=== PATIENT | female | born 1965 | race Caucasian/White ===

== ENCOUNTER 2019-10-28 07:17 | Emergency (ER) | payer MEDICARE, MEDICAID ==
[~2019-10-28] VITALS: Ht 157.5 cm; Wt 74.8 kg
--- OUTSIDE RECORDS SUMMARY | ~2019-10-28 | XMS | Encounter Summary ---
Demographics + + + | Address | [address] | | | [place] [address] | + + + | Home Phone | | + + + | Preferred Language | Unknown | + + + | Marital Status | Single | + + + | Sabianist Affiliation | 1013 | + + + | Race | Unknown | + + + | Ethnic Group | Unknown | + + + Author + + + | Author | [facility] | | | and [place] | + + + | Organization | [facility] | | | and [place] | + + + | Address | Unknown | + + + | Phone | Unavailable | + + + Support + + +---------+ + | Name | Relationship | Address | Phone | + + +---------+ + | Juancarlos Wells | ECON | Unknown | | + + +---------+ + | Yaneli Wells | ECON | Unknown | | + + +---------+ + Care Team Providers + +------+ + | Care Clinical Quality Rn Name | Role | Phone | + +------+ + | Freddie Woodward MD | PCP | | + +------+ + Encounter Details +--------+ + + + + | Date | Type | Department | Care Team | Description | +--------+ + + + + | 04/06/ | Hospital | [facility] | Conversion | | | 2014 | Encounter | [facility] | Transaction, | | | | | OUTPATIENT | Provider Unknown | | | | | PROCEDURES [address] | | | | [address] | (Fax) | | | | | [place], [place] | | | | | | [address] | | | | | | [phone] | | | +--------+ + + + + Social History + + + +--------+------+ | Tobacco Use | Types | Packs/Day | Years | Date | | | | | Used | | + + + +--------+------+ | Current Every Day | Cigarettes | | | | | Smoker | | | | | + + + +--------+------+ + +---+---+---+ | Smokeless Tobacco: | | | | | Never Used | | | | + +---+---+---+ + + +---------+ + | Alcohol Use | Drinks/Week | oz/Week | Comments | + + +---------+ + | No | | | | + + +---------+ + + + + | Sex Assigned at | Date Recorded | | | | + + + | Not on file | | + + + + + + + | Job Start Date | Occupation | Industry | + + + + | Not on file | Not on file | Not on file | + + + + + + + + | Travel History | Travel Start | Travel End | + + + + + + | No recent travel history available. | + + documented as of this encounter Medications at Time of Discharge + + + +---------+ + + | Medication | Sig | Dispensed | Refills | Start | End Date | | | | | | Date | | + + + +---------+ + + | albuterol (PROAIR | Inhale 2 puffsonce a | | 0 | 08/14/20 | | | HFA) 90 mcg/puff | day as needed for | | | 12 | | | inhaler | Shortness of breath | | | | | + + + +---------+ + + | esomeprazole | Take 40 mg by mouth | | 0 | 08/14/20 | | | (NEXIUM) 40 mg | Daily. | | | 12 | | | capsule | | | | | | + + + +---------+ + + | fluticasone | Inhale 2 sprays in | | 0 | 08/14/20 | | | (FLONASE) 50 | each nostril once | | | 12 | | | mcg/nasal spray | daily | | | | | + + + +---------+ + + | | Take 50 mg by mouth | | 0 | 08/14/20 | | | hydrochlorothiazide | Daily. | | | 12 | | | (HYDRODIURIL) 50 MG | | | | | | | tablet | | | | | | + + + +---------+ + + | LORazepam (ATIVAN) | Take 1 mg by mouth | | 0 | | | | 1 mg tablet | every 6 hours as | | | | | | | needed. | | | | | + + + +---------+ + + | metroNIDAZOLE | 1 application | | 0 | 08/14/20 | | | (METROGEL) 1 % gel | topically once a day | | | 12 | | + + + +---------+ + + | ondansetron | Take 4 mg by mouth | | 0 | | | | (ZOFRAN) 4 mg tablet | every 8 hours as | | | | | | | needed. | | | | | + + + +---------+ + + | simvastatin | Take 1 tablet by | | 0 | 08/14/20 | | | (ZOCOR) 20 mg tablet | mouth after supper | | | 12 | | | | or before bedtime | | | | | | | every day | | | | | + + + +---------+ + + | zonisamide | Take 300 mg by mouth | | 0 | | | | (ZONEGRAN) 100 mg | nightly. | | | | | | capsule | | | | | | + + + +---------+ + + | cholecalciferol | Take 1 capsule by | | 0 | 08/14/20 | | | (VITAMIN D-3) 1,000 | mouth two or three | | | 12 | 9 | | units capsule | times per week | | | | | + + + +---------+ + + | doxepin (SINEQUAN) | Take 10 mg by mouth | | 0 | | | | 10 mg capsule | nightly. | | | | 9 | + + + +---------+ + + | DULoxetine | Take 60 mg by mouth | | 0 | 08/14/20 | | | (CYMBALTA) 60 MG | Daily. | | | 12 | 9 | | capsule | | | | | | + + + +---------+ + + | ferrous sulfate | Take 1 tablet by | | 0 | 08/14/20 | | | 325 mg tablet | mouth once a day | | | 12 | 9 | | | with 4 oz of vitamin | | | | | | | C rich juice | | | | | + + + +---------+ + + | gabapentin | Take 100 mg by mouth | | 0 | | | | (NEURONTIN) 100 mg | 3 times daily. | | | | 9 | | capsule | | | | | | + + + +---------+ + + | hydrOXYzine | Take 25 mg by mouth | | 0 | 08/14/20 | | | (ATARAX) 25 MG | nightly. | | | 12 | 9 | | tablet | | | | | | + + + +---------+ + + | Levothyroxine | Take 50 mcg by mouth | | 0 | | | | Sodium 50 MCG CAPS | Daily. | | | | 9 | + + + +---------+ + + | lubiprostone | Take 24 mcg by mouth | | 0 | 08/14/20 | | | (AMITIZA) 24 mcg | 2 times daily. | | | 12 | 9 | | capsule | | | | | | + + + +---------+ + + | modafinil | Take 200 mg by mouth | | 0 | 08/14/20 | | | (PROVIGIL) 200 mg | Daily. | | | 12 | 9 | | tablet | | | | | | + + + +---------+ + + | naproxen | Take 500 mg by mouth | | 0 | 08/14/20 | | | (NAPROSYN) 500 mg | 2 times daily. | | | 12 | 9 | | tablet | | | | | | + + + +---------+ + + | natalizumab | Inject 300 mg into | | 0 | | | | (TYSABRI) 20 mg/mL | the vein Every 30 | | | | 9 | | injection | days. | | | | | + + + +---------+ + + | potassium chloride | Take 10 mEq by mouth | | 0 | | | | (KLOR-CON 10) 10 | Daily. | | | | 9 | | mEq CR tablet | | | | | | + + + +---------+ + + | prazosin | Take 1 mg by mouth | | 0 | | | | (MINIPRESS) 1 mg | nightly. | | | | 9 | | capsule | | | | | | + + + +---------+ + + | propranolol | Take 60 mg by mouth | | 0 | 08/14/20 | | | (INDERAL LA) 60 MG | Daily. | | | 12 | 9 | | 24 hr capsule | | | | | | + + + +---------+ + + | traMADol (ULTRAM) | Take 1 to 2 tablets | | 0 | 08/14/20 | | | 50 mg tablet | by mouth every 4 to | | | 12 | 9 | | | 6 hours as needed | | | | | | | for pain | | | | | + + + +---------+ + + | venlafaxine | Take 37.5 mg by | | 0 | | | | (EFFEXOR XR) 37.5 mg | mouth Daily. | | | | 9 | | 24 hr capsule | | | | | | + + + +---------+ + + | zolpidem (AMBIEN) | Take one half or one | | 0 | 08/14/20 | | | 10 mg tablet | tablet at bedtime | | | 12 | 9 | | | for sleep, use | | | | | | | intermittently | | | | | + + + +---------+ + + documented as of this encounter Plan of Treatment +--------+ + + + + | Date | Type | Specialty | Care Team | Description | +--------+ + + + + | 12/01/ | Clinical | Neurology | | | | 2018 | Support | | | | +--------+ + + + + | 12/29/ | Clinical | Neurology | | | | 2019 | Support | | | | +--------+ + + + + | 01/26/ | Clinical | Neurology | | | | 2019 | Support | | | | +--------+ + + + + | 01/26/ | Office | Neurology | Denis Stokes, | | | 2019 | Visit | | [address] | | | | | | [address] | | | | | | [place] [address] | | | | | | [phone] | | | | | | | | +--------+ + + + + documented as of this encounter Visit Diagnoses Not on filedocumented in this encounter"
--- OUTSIDE RECORDS SUMMARY | ~2019-10-28 | XMS | Encounter Summary ---
Demographics + + + | Address | [address] | | | [place] [address] | + + + | Home Phone | | + + + | Preferred Language | Unknown | + + + | Marital Status | Single | + + + | Samaritan Affiliation | 1013 | + + + | Race | Unknown | + + + | Ethnic Group | Unknown | + + + Author + + + | Author | [facility] | | | and [place] | + + + | Organization | [facility] | | | and [...] Team Providers + +------+ + | Care Cell Plasterer Name | Role | Phone | + +------+ + | Freddie Woodward MD | PCP | | + +------+ + Encounter Details +--------+ + + + + | Date | Type | Department | Care Team | Description | +--------+ + + + + | 10/12/ | Orders Only | [facility] | Denis Stokes, | | | 2013 | | NEUROLOGY [address] | PA-C [address] | | | | | [address] | [address]IVE [facility] [address] | | | | | [place], [place] | [place] [address] | | | | | [address] | [phone] | | | | | [phone] | | | +--------+ + + + [...] | | | | | | [address] | | | | | | [place] [address] | | | | | | [phone] | | | | | | | | +--------+ + + + + documented as of this encounter Procedures + +--------+ + + + | Procedure Name | Priori | Date/Time | Associated Diagnosis | Comments | | | ty | | | | + +--------+ + + + | MISCELLANEOUS LAB | Routin | 10/12/2014 | | Results for this | | (NON-ORD) | e | 2:12 PM | | procedure are in the | | | | PST | | results section. | + +--------+ + + + documented in this encounter Results Miscellaneous Lab (10/12/2014 2:12 PM PST) + + + + + + | Component | Value | Ref Range | Performed | Pathologist | | | | | At | Signature | + + + + + + | TEST | [id number]: STRATIFY | | EXTERNAL | | | INFORMATION | JCV ANTIBODYTesting | | LAB | | | | performed at [facility], [address] | | | | | | [facility] [place], [place] | | | | | | [address] | | | | + + + + + + | REFERENCE | [facility] | | EXTERNAL | | | LAB TEST | DIAGNOSTICSComment: | | LAB | | | RESULTS | Testing performed at | | | | | | [facility], [address], | | | | | | [place] [address] | | | | + + + + + + | RESULT | RESULTS TO BE SENT | | EXTERNAL | | | | DIRECTLY TO PHYSICIAN BY | | LAB | | | | REFERRAL | | | | | | LABORATORY.Comment: | | | | | | Testing performed at | | | | | | [facility];[address] | | | | | | [place] [address] | | | | + + + + + + + + | Specimen | + + | | + + + +---------+ + + | Performing | Address | City/State/Zipcode | Phone Number | | Organization | | | | + +---------+ + + | EXTERNAL LAB | | | | + +---------+ + + documented in this encounter Visit Diagnoses Not on filedocumented in this encounter"
--- OUTSIDE RECORDS SUMMARY | ~2019-10-28 | XMS | Encounter Summary ---
Demographics + + + | Address | [address] | | | [place] [address] | + + + | Home Phone | | + + + | Preferred Language | Unknown | + + + | Marital Status | Single | + + + | Buddhist Affiliation | 1013 | + + + | Race | Unknown | + + + | Ethnic Group | Unknown | + + + Author + + + | Author | [facility] | | | and [place] | + + + | Organization | [facility] | | | [...] Team Providers + +------+ + | Care Investment Banker Name | Role | Phone | + +------+ + PCP | Unavailable | + +------+ + Encounter Details +--------+ + + + + | Date | Type | Department | Care Team | Description | +--------+ + + + + | 01/22/ | [facility] | [facility] | | | | 2006 | Encounter | MED CTR LABORATORY | | | | | | [address] | | | | | | [place] | | | | | | [address] | | | | | | [phone] | | | +--------+ + + + + Social History + +-------+ +--------+------+ | Tobacco Use | Types | Packs/Day | Years | Date | | | | | Used | | + +-------+ +--------+------+ | Never Assessed | | | | | + +-------+ +--------+------+ + + + | Sex Assigned at [...] | | | | | | [address] | | | | | | [place] [address] | | | | | | [phone] | | | | | | | | +--------+ + + + + documented as of this encounter Visit Diagnoses Not on filedocumented in this encounter"
--- OUTSIDE RECORDS SUMMARY | ~2019-10-28 | XMS | Encounter Summary ---
Demographics + + + | Address | [address] | | | [place] [address] | + + + | Home Phone | | + + + | Preferred Language | Unknown | + + + | Marital Status | Single | + + + | Lutheran Affiliation | 1013 | + + + | Race | Unknown | + + + | Ethnic Group | Unknown | + + + Author + + + | Author | [facility] | | | and [place] | + + + | Organization | [facility] | | | [...] Team Providers + +------+ + | Care Detail Assembler Name | Role | Phone | + +------+ + | Freddie Woodward MD | PCP | | + +------+ + Encounter Details +--------+ + + + + | Date | Type | Department | Care Team | Description | +--------+ + + + + | 07/20/ | Hospital | [facility] | Conversion | | | 2013 | Encounter | [facility] | Transaction, | | | | | OUTPATIENT | Provider Unknown | | | | | PROCEDURES [address] | | | [address] | (Fax) | | | | | [place], [place] | | | | | | [address] | | | | | | [phone] | | | +--------+ + + + [...] | | | | | [place] [address] | | | | | | [phone] | | | | | | | | +--------+ + + + + documented as of this encounter Visit Diagnoses Not on filedocumented in this encounter"
--- OUTSIDE RECORDS SUMMARY | ~2019-10-28 | XMS | Encounter Summary ---
Demographics + + + | Address | [address] | | | [place] [address] | + + + | Home Phone | | + + + | Preferred Language | Unknown | + + + | Marital Status | Single | + + + | Advent Affiliation | 1013 | + + + [...] Team Providers + +------+ + | Care Unmanned Aircraft Systems Roboticist Name | Role | Phone | + +------+ + | Freddie Woodward MD | PCP | | + +------+ + Reason for Visit + + + | Reason | Comments | + + + | Medication Refill | | + + + Encounter Details +--------+--------+ + + + | Date | Type | Department | Care Team | Description | +--------+--------+ + + + | 07/21/ | Refill | [facility] | Denis Stokes, | Medication Refill | | 2019 | | NEUROLOGY [address] | PA-Jacqueline [address] | | | | | [address] | [address] [facility] [address] | | | | | [place], [place] | [place] [address] | | | | | [address] | [phone] | | | | | [phone] | | | +--------+--------+ + + + Social History + + + +--------+------+ | Tobacco Use | Types | Packs/Day | Years | Date | | | | | Used | | + + + +--------+------+ | Former Smoker | Cigarettes | 0.25 | | | + + + +--------+------+ [...] | | | | | [place] [address] | | | | | | [phone] | | | | | | | | +--------+ + + + + documented as of this encounter Visit Diagnoses Not on filedocumented in this encounter"
--- OUTSIDE RECORDS SUMMARY | ~2019-10-28 | XMS | Encounter Summary ---
Demographics + + + | Address | [address] | | | [place] [address] | + + + | Home Phone | | + + + | Preferred Language | Unknown | + + + | Marital Status | Single | + + + | Evangelical Affiliation | 1013 | + + + | Race | Unknown | + + + | Ethnic Group | Unknown | + + + Author + + + | Author | [facility] | | | and [place] | + + + | Organization | [facility] | | | [...] Team Providers + +------+ + | Care Physician'S Aide Name | Role | Phone | + +------+ + | Lucy Godinez PA-C | PCP | | + +------+ + Encounter Details +--------+ + + + + | Date | Type | Department | Care Team | Description | +--------+ + + + + | 10/27/ | Orders Only | [facility] | Denis Stokes, | MULTIPLE SCLEROSIS; | | 2018 | | NEUROLOGY [address] | PA-C [address] | Encounter for | | | | [address] | [address] | medication | | | | [place], [place] | [place] [address] | monitoring | | | | [address] | [phone] | | | | | [phone] | | | +--------+ + + + [...] Clinical | Neurology | | | | 2020 | Support | | | | +--------+ + + + + | 01/26/ | Clinical | Neurology | | | | 2019 | Support | | | | +--------+ + + + + | 01/26/ | Office | Neurology | Denis Stokes, | | | 2019 | Visit | | [address] [address] | | | | | [address] | | | | | | [place] [address] | | | | | | [phone] | | | | | | | | +--------+ + + + + + +------+--------+ + + | Name | Type | Priori | Associated Diagnoses | Date/Time | | | | ty | | | + +------+--------+ + + | ARMANDO Virus Antbody | Lab | Routin | MULTIPLE SCLEROSIS | 10/27/2019 7:42 PM | | W/Ross, Qual, | | e | Encounter for | PST | | Reflex | | | medication | | | | | | monitoring | | + +------+--------+ + + documented as of this encounter Visit Diagnoses + + | Diagnosis | + + | MULTIPLE SCLEROSIS Multiple sclerosis | + + | Encounter for medication monitoring Encounter for therapeutic drug monitoring | + + documented in this encounter"
--- OUTSIDE RECORDS SUMMARY | ~2019-10-28 | XMS | Clinical Summary ---
Demographics + + + | Address | [address] | | | [place] [address] | + + + | Home Phone | | + + + | Preferred Language | Unknown | + + + | Marital Status | Single | + + + | Worship Affiliation | Unknown | + + + | Race | White | + + + | Ethnic Group | Not or | + + + Author + + + | Author | [facility] | + + + | Organization | [facility] | + + + | Address | Unknown | + + + | Phone | Unavailable | + + + Support + + +---------+ + | Name | Relationship | Address | Phone | + + +---------+ + | Kristina Rodriguez ECON | Unknown | Unavailable | + + +---------+ + Care Team Providers + +------+ + | Care Clinical Secretary Name | Role | Phone | + +------+ + PCP | Unavailable | + +------+ + Source Comments ESTRELLA is fully live on both [facility] Ambulatory and [facility] InPatient.[facility] Allergies + + + + + + | Active Allergy | Reactions | Severity | Noted | Comments | | | | | Date | | + + + + + + | Zolpidem | Unknown | | 11/09/20 | | | | | | 13 | | + + + + + + | Oxycodone-Acetaminop | Unknown | | 11/09/20 | | | hen | | | 13 | | + + + + + + Medications Not on file Active Problems Not on file Social History + +-------+ +--------+------+ | Tobacco Use | Types | Packs/Day | Years | Date | | | | | Used | | + +-------+ +--------+------+ | Current Some Day | | | | | | Smoker | | | | | + +-------+ +--------+------+ + + +---------+ + | Alcohol Use | Drinks/Week | oz/Week | Comments | + + +---------+ + | Not Asked | | | | + + +---------+ [...] recent travel history available. | + + Last Filed Vital Signs + + + + + | Vital Sign | Reading | Time Taken | Comments | + + + + + | Blood Pressure | 137/71 | 11/09/2013 1:42 PM | | | | | PST | | + + + + + | Pulse | 84 | 11/09/2013 1:42 PM | | | | | PST | | + + + + + | Temperature | 36.8 C (98.2 F) | 11/09/2013 1:42 PM | | | | | PST | | + + + + + | Respiratory Rate | 16 | 11/09/2013 1:42 PM | | | | | PST | | + + + + + | Oxygen Saturation | - | - | | + + + + + | Inhaled Oxygen | - | - | | | Concentration | | | | + + + + + | Weight | 86 kg (189 lb 8 oz) | 11/09/2013 1:42 PM | | | | | PST | | + + + + + | Height | 157.5 cm (5' 2") | 11/09/2013 1:42 PM | | | | | PST | | + + + + + | Body Mass Index | 34.66 | 11/09/2013 1:42 PM | | | | | PST | | + + + + + Plan of Treatment + + + + + | Health Maintenance | Due Date | Last Done | Comments | + + + + + | Pneumococcal | | | | | vaccination (1 | 9 | | | | - PPSV23) | | | | + + + + + | Influenza (Flu) | | | | | vaccination (#1) | 9 | | | + + + + + Results Not on filefrom Last 3 Months Insurance + +--------+ +--------+-------+---------+--------+ | Payer | Benefi | Subscriber | Effect | Phone | Address | Type | | | t Plan | ID | hugo | | | | | | / | | Dates | | | | | | Group | | | | | | + +--------+ +--------+-------+---------+--------+ | BUSINESS CONTROLLER MEDICAID | BUSINESS CONTROLLER | xxxxxxxx | 12/02/19 | | | Medica | | | [place] | | 14-Pre | | | id | | | N [place] | | sent | | | | + +--------+ +--------+-------+---------+--------+ + +--------+ +--------+ + + | Guarantor Name | Accoun | Relation to | Date | Phone | Billing Address | | | t Type | Patient | of | | | | | | | | | | + +--------+ +--------+ + + | Yane Lama | Person | Self | [birth year] | [address] | | al/Fam | | 1965 | [phone] | [place] [address] | | | nick | | | 3 (Home) | | + +--------+ +--------+ + +
--- OUTSIDE RECORDS SUMMARY | ~2019-10-28 | XMS | Encounter Summary ---
Demographics + + + | Address | [address] | | | [place] [address] | + + + | Home Phone | | + + + | Preferred Language | Unknown | + + + | Marital Status | Single | + + + | Sabianism Affiliation | 1013 | + + + | Race | Unknown | + + + | Ethnic Group | Unknown | + + + Author + + + | Author | [facility] | | | and [place] | + + + | Organization | [facility] | | | and [...] Team Providers + +------+ + | Care Motor Coach Operator Name | Role | Phone | + +------+ + | Susan Ahn MD | PCP | | + +------+ + Encounter Details +--------+ + + + + | Date | Type | Department | Care Team | Description | +--------+ + + + + | 01/08/ | Hospital | [facility] | Kaz Martin MD | | | 2011 | Encounter | MED CTR MP INTRA OP | [address], [place] | | | | | [address] | [address] [place], [place] | | | | | [place], [place] | [address] | | | | | [address] | | | | | | [phone] | | | +--------+ + + + [...] | | | | | [place] [address] | | | | | | [phone] | | | | | | | | +--------+ + + + + documented as of this encounter Procedures + +--------+ + + + | Procedure Name | Priori | Date/Time | Associated Diagnosis | Comments | | | ty | | | | + +--------+ + + + | TSH | Routin | 01/08/2012 | | Results for this | | | e | 1:17 PM | | procedure are in the | | | | PST | | results section. | + +--------+ + + + documented in this encounter Results TSH (01/08/2012 1:17 PM PST) + + + + + + | Component | Value | Ref Range | Performed | Pathologist | | | | | At | Signature | + + + + + + | TSH | 4.76Comment: Testing | 0.34 - 5.60 | [facility] | | | | performed on the [facility] | uIU/mL | [facility] | | | | [place] [facility] | | MEDICAL | | | | Analyzer. | | CENTER - | | | | | | LABORATORY | | + + + + + + + + | Specimen | + + | | + + + + + + + | Performing | Address | City/State/Zipcode | Phone Number | | Organization | | | | + + + + + | [facility] | [address] | [place] | [phone] | | [facility] | | [address] | | | - LABORATORY | | | | + + + + + | [facility] | [address] | [place] | | | [facility] | | [address] | | | - LABORATORY | | | | + + + + + documented in this encounter Visit Diagnoses Not on filedocumented in this encounter"
--- OUTSIDE RECORDS SUMMARY | ~2019-10-28 | XMS | Encounter Summary ---
Demographics + + + | Address | [address] | | | [place] [address] | + + + | Home Phone | | + + + | Preferred Language | Unknown | + + + | Marital Status | Single | + + + | Moravian Affiliation | 1013 | + + + | Race | Unknown | + + + | Ethnic Group | Unknown | + + + Author + + + | Author | [facility] | | | and [place] | + + + | Organization | [facility] | | | and [...] Team Providers + +------+ + | Care Oriental Rug Repairer Name | Role | Phone | + +------+ + | Freddie Woodward MD | PCP | | + +------+ + Encounter Details +--------+ + + + + | Date | Type | Department | Care Team | Description | +--------+ + + + + | 05/21/ | Orders Only | [facility] | Denis Stokes, | | | 2017 | | [address] | [place] | | | | | [place], [place] | [address] | | | | | [address] | [place] [address] | | | | | [phone] | [phone] | | | | | | | [...] | | | | | [place] [address] | | | | | | [phone] | | | | | | | | +--------+ + + + + documented as of this encounter Procedures + +--------+ + + + | Procedure Name | Priori | Date/Time | Associated Diagnosis | Comments | | | ty | | | | + +--------+ + + + | ARMANDO VIRUS AB W/INDEX, | Routin | 05/21/2018 | | Results for this | | QUAL, REFLEX INHIB | e | 6:56 PM | | procedure are in the | | ASSAY | | PDT | | results section. | + +--------+ + + + documented in this encounter Results ARMANDO Virus Antbody W/Index, Qual, Reflex (05/21/2018 6:56 PM PDT) + + + + + + | Component | Value | Ref Range | Performed | Pathologist | | | | | At | Signature | + + + + + + | Index Value | 0.13 | | EXTERNAL | | | | | | LAB | | + + + + + + | HLA | NegativeComment: Index | | EXTERNAL | | | Antibody | interpretive criteria: | | LAB | | | Result | <0.20 | | | | | | negative 0.20-0.40 | | | | | | indeterminate | | | | | | >0.40 positive | | | | | | | | | | + + + + + + | Interpretat | (See Below)Comment: | | EXTERNAL | | | ion: | Negative: Antibodies to | | LAB | | | | JCV not | | | | | | detected.Indeterminate: | | | | | | Low level reactivity | | | | | | detected, see Inhibition | | | | | | | | | | | | Assay result to follow | | | | | | for the final antibody | | | | | | | | | | | | result.Positive: | | | | | | Antibodies to ARMANDO virus | | | | | | (JCV) detected | | | | | | indicating | | | | | | the patient has been | | | | | | exposed to JCV at an | | | | | | undetermined | | | | | | time.The STRATIFY JCV | | | | | | Antibody Test is an | | | | | | enzyme-linkedimmunosorbe | | | | | | n assay (ALHAJI) designed | | | | | | to detect JCV | | | | | | antibodiesto help | | | | | | identify individuals who | | | | | | have been exposed to | | | | | | thevirus. Samples with | | | | | | low level reactivity in | | | | | | the detectionassay are | | | | | | retested in a | | | | | | confirmation | | | | | | (inhibition) assay | | | | | | toconfirm presence or | | | | | | absence of JCV-specific | | | | | | antibodies. | | | | + + + + + + | JCV | (See Below) | | EXTERNAL | | | Antibody by | | | LAB | | | Inhibition | | | | | + + + + + + | Interpretat | (See Below)Comment: | | EXTERNAL | | | ion: | Positive: Antibodies to | | LAB | | | | ARMANDO virus (JCV) detected | | | | | | indicating | | | | | | the patient has been | | | | | | exposed to | | | | | | JCV at an undetermined | | | | | | timeNegative: Antibodies | | | | | | to JCV not detected | | | | + + + [...]
--- OUTSIDE RECORDS SUMMARY | ~2019-10-28 | XMS | Encounter Summary ---
Demographics + + + | Address | [address] | | | [place] [address] | + + + | Home Phone | | + + + | Preferred Language | Unknown | + + + | Marital Status | Single | + + + | Baptism Affiliation | 1013 | + + + | Race | Unknown | + + + | Ethnic Group | Unknown | + + + Author + + + | Author | [facility] | | | and [place] | + + + | Organization | [facility] | | [...] Team Providers + +------+ + | Care Paper Cutter Operator Name | Role | Phone | + +------+ + | Lucy Godinez PA-C | PCP | | + +------+ + Reason for Visit + + + | Reason | Comments | + + + | Multiple Sclerosis | Tysabri Infusion. | + + + Service/Procedure (Routine) + +--------+ + + + + | Status | Reason | Specialty | Diagnoses / | Referred By | Referred To | | | | | Procedures | Contact | Contact | + +--------+ + + + + | Authorized | | | Diagnoses | Bruno, | Bruno, | | | | | Multiple | MD Id[place] | MD [place] | | | | | sclerosis | [address] | | | | | (HCC) | [place] [address] | | | | | Procedures | [address]IVE [address] | [address] | | | | | [place] | D | D [place], | | | | | [address] | [place], | [place] [address] | | | | | INJECTION, 1 | [place] [address] | Phone: | | | | | [place] | Phone: | [phone] | | | | | CHEMOTHER, | [phone] | Fax: | | | | | IV INFUSION, | Fax: | [phone] | | | | | 1 HR | [phone] | | + +--------+ + + + + Encounter Details +--------+ + + + + | Date | Type | Department | Care Team | Description | +--------+ + + + + | 09/29/ | Clinical | [facility] | | MULTIPLE SCLEROSIS | | 2019 | Support | NEUROLOGY [address] | | (Primary Dx) | | | | [address] | | | | | | [facility] [place] | | | | | | [address] | | | | | | [phone] | | | +--------+ + + + [...] + + documented as of this encounter Last Filed Vital Signs + + + + + | Vital Sign | Reading | Time Taken | Comments | + + + + + | Blood Pressure | 140/87 | 09/29/2019 2:02 PM | | | | | PDT | | + + + + + | Pulse | 87 | 09/29/2019 2:02 PM | | | | | PDT | | + + + + + | Temperature | 37.1 C (98.7 F) | 09/29/2019 2:02 PM | | | | | PDT | | + + + + + | Respiratory Rate | - | - | | + + + + + | Oxygen Saturation | 95% | 09/29/2019 2:02 PM | | | | | PDT | | + + + + + | Inhaled Oxygen | - | - | | | Concentration | | | | + + + + + | Weight | - | - | | + + + + + | Height | - | - | | + + + + + | Body Mass Index | - | - | | + + + + + documented in this encounter Progress Notes Beatris Tejeda RN - 09/29/2019 1:45 PM [id number] Pt presents for IV Tysabri infusion. Pt i dentification verified and patient taken to Infusion [place] [facility]. Informed consent was signed and the Touch Program questionaire completed. There are no contraindications to administration o f Tysabri. 1357 IV access was obtained without difficulty in the left forearm using a 24 GA 0.75 IV ca theter. Pt tolerated well. 1359 Medication is IV Tysabri 300mg/15mL diluted in 100mL of 0.9% Normal Saline immediately prior to infusion. The infusion was started as an IVPB at a rate of 115 mL/hr utilizing an Notis.tv IV pump. Primary solution is 100 mL NS. 1459 Tysabri infusion completed. Line flushed and IV Saline locked. Pt resting comfortably for post-infusion observation period. 1559 Observation period completed. No reaction observed, pt in no apparent distress. IV acc ess DC'd without difficulty. Catheter intact. Site WNL. Pressure dressing applied. Pt instru cted to remove dressing in approximately 2 hours. Pt discharged to home. documented in this en counter Plan of Treatment +--------+ + + + + | Date | Type | Specialty | Care Team | Description | +--------+ + + + + | 12/01/ | Clinical | Neurology | | | 2018 | Support | | | | +--------+ + + + + | 12/29/ | Clinical | Neurology | | | | 2019 | Support | | | | +--------+ + + + + | 01/26/ | Clinical | Neurology | | | | 2019 | Support | | | | +--------+ + + + + 01/26/ | Office | Neurology | Denis Stokes, | | 2019 | Visit | | [address] | | | | | | [address] | | | | | | [place] [address] | | | | | | [phone] | | | | | | | | +--------+ + + + + documented as of this encounter Visit Diagnoses + + | Diagnosis | + + | MULTIPLE SCLEROSIS - Primary Multiple sclerosis | + + documented in this encounter Administered Medications + +---------+ +--------+-------+ + | Medication Order | MAR | Action | Dose | Rate | Site | | | Action | Date | | | | + +---------+ +--------+-------+ + | natalizumab (TYSABRI) 300 mg in | New Bag | 09/29/20 | 300 mg | 115 | Left Arm | | sodium chloride 0.9% 100 mL IVPB | | 19 1:59 | | mL/hr | | | 300 mg, Intravenous, Administer | | PM PDT | | | | | over 1 Hours, ONCE, 09/29/19 | | | | | | | at 1430, For 1 dose, Keep in | | | | | | | refrigerator. Flush with NS | | | | | | | before and after giving. Observe | | | | | | | patients during the infusion and | | | | | | | for one hour after the infusion | | | | | | | is complete., | | | | | | + +---------+ +--------+-------+ + +---+---+ | | | +---+---+ + +---------+ +---------+-------+ + | sodium chloride 0.9% (NS) | New Bag | 09/29/20 | 100 mLs | 100 | Left Arm | | infusion at 100 mL/hr, | | 19 1:59 | | mL/hr | | | Intravenous, FIXED VOLUME (see | | PM PDT | | | | | admin instruction), Starting Tue | | | | | | | 09/29/19 at 1430 | | | | | | + +---------+ +---------+-------+ + +---+---+ | | | +---+---+ documented in this encounter"
--- OUTSIDE RECORDS SUMMARY | ~2019-10-28 | XMS | Encounter Summary ---
Demographics + + + | Address | [address] | | | [place] [address] | + + + | Home Phone | | + + + | Preferred Language | Unknown | + + + | Marital Status | Single | + + + | Judaism Affiliation | 1013 | + + + | Race | Unknown | + + + | Ethnic Group | Unknown | + + + Author + + + | Author | [facility] | | | and [place] | + + + | Organization | [facility] | | | and [place] | + + + | Address | Unknown | + + + | Phone | Unavailable | + + + Support + + +---------+ + | Name | Relationship | Address | Phone | + + +---------+ + | Juancarlos Russell | ECON | Unknown | | + + +---------+ + | Yaneli Wells | ECON | Unknown | | + + +---------+ + Care Team Providers + +------+ + | Care Warping Machine Operator Name | Role | Phone | + +------+ + PCP | Unavailable | + +------+ + Encounter Details +--------+ + + + + | Date | Type | Department | Care Team | Description | +--------+ + + + + | 10/15/ | Hospital | [facility] | [place], | | | 2006 | Encounter | MED CTR EMERGENCY | Lucio Plaza MD [address] | | | | | [address] | [facility] | | | | | [place], [place] | [place] [address] | | | | | [address] | [phone] | | | | | [phone] | | | +--------+ + + + [...] | | | | | [place] [address] | | | | | | [phone] | | | | | | | | +--------+ + + + + documented as of this encounter Visit Diagnoses Not on filedocumented in this encounter"
--- OUTSIDE RECORDS SUMMARY | ~2019-10-28 | XMS | Encounter Summary ---
Demographics + + + | Address | [address] | | | [place] [address] | + + + | Home Phone | | + + + | Preferred Language | Unknown | + + + | Marital Status | Single | + + + | Anabaptist Affiliation | 1013 | + + + | Race | Unknown | + + + | Ethnic Group | Unknown | + + + Author + + + | Author | [facility] | | | and [place] | + + + | Organization | [facility] | | | [...] Team Providers + +------+ + | Care Instructor Ballroom Dancing Name | Role | Phone | + +------+ + PCP | Unavailable | + +------+ + Encounter Details +--------+ + + + + | Date | Type | Department | Care Team | Description | +--------+ + + + + | 12/05/ | [facility] | [facility] | | | | 2000 | Encounter | MED CTR LABORATORY | | | | | | [address] | | | | | | [place] | | | | | | [address] | | | | | | [phone] | | | +--------+ + + + [...] | | | | | [place] [address] | | | | | | [phone] | | | | | | | | +--------+ + + + + documented as of this encounter Visit Diagnoses Not on filedocumented in this encounter"
--- OUTSIDE RECORDS SUMMARY | ~2019-10-28 | XMS | Encounter Summary ---
Demographics + + + | Address | [address] | | | [place] [address] | + + + | Home Phone | | + + + | Preferred Language | Unknown | + + + | Marital Status | Single | + + + | Scientologist Affiliation | 1013 | + + + | Race | Unknown | + + + | Ethnic Group | Unknown | + + + Author + + + | Author | [facility] | | | and [place] | + + + | Organization | [facility] | | | and [...] Team Providers + +------+ + | Care House Coordinator Name | Role | Phone | + +------+ + | Freddie Woodward MD | PCP | | + +------+ + Encounter Details +--------+ + + + + | Date | Type | Department | Care Team | Description | +--------+ + + + + | 07/21/ | Hospital | [facility] | Conversion | | | 2012 | Encounter | [facility] | Transaction, | | | | | OUTPATIENT | Provider Unknown | | | | | PROCEDURES [address] | | | [address] | (Fax) | | | | | [place], [place] | | | | | | [address] | | | | | | [phone] | | | +--------+ + + + [...] | | | | | [place] [address] | | | | | | [phone] | | | | | | | | +--------+ + + + + documented as of this encounter Visit Diagnoses Not on filedocumented in this encounter"
--- OUTSIDE RECORDS SUMMARY | ~2019-10-28 | XMS | Encounter Summary ---
Demographics + + + | Address | [address] | | | [place] [address] | + + + | Home Phone | | + + + | Preferred Language | Unknown | + + + | Marital Status | Single | + + + | Orthodox Affiliation | 1013 | + + + | Race | Unknown | + + + | Ethnic Group | Unknown | + + + Author + + + | Author | [facility] | | | and [place] | + + + | Organization | [facility] | | | [...] Team Providers + +------+ + | Care Environmental Services Specialist Name | Role | Phone | + +------+ + PCP | Unavailable | + +------+ + Encounter Details +--------+ + + + + | Date | Type | Department | Care Team | Description | +--------+ + + + + | / | [facility] | [facility] | | | | 1999 | Encounter | MED CTR LABORATORY | | | | | | [address] | | | | | | [place] | | | | | | [address] | | | | | | [phone] | | | +--------+ + + + [...] [address] | | | | | | [address] | | | | | | [place] [address] | | | | | | [phone] | | | | | | | | +--------+ + + + + documented as of this encounter Visit Diagnoses Not on filedocumented in this encounter"
--- OUTSIDE RECORDS SUMMARY | ~2019-10-28 | XMS | Encounter Summary ---
Demographics + + + | Address | [address] | | | [place] [address] | + + + | Home Phone | | + + + | Preferred Language | Unknown | + + + | Marital Status | Single | + + + | Muslim Affiliation | 1013 | + + + | Race | Unknown | + + + | Ethnic Group | Unknown | + + + Author + + + | Author | [facility] | | | and [place] | + + + | Organization | [facility] | | | [...] Team Providers + +------+ + | Care Process Control Programmer Name | Role | Phone | + +------+ + | Freddie Woodward MD | PCP | | + +------+ + Reason for Visit + + + | Reason | Comments | + + + | Appointment | MRI | + + + Encounter Details +--------+ + + + + | Date | Type | Department | Care Team | Description | +--------+ + + + + | 07/13/ | Telephone | [facility] | [facility], | Appointment (MRI) | | 2012 | | GASTROENTEROLOGY | KEYANA [address] | | | | | [address] [place] | [place], [place] [address] | | | | | [address] [place], [place] | [place], [place] | | | | | [address] | [address] | | | | | [phone] | | | +--------+ + + + [...] | | | | | [place] [address] | | | | | | [phone] | | | | | | | | +--------+ + + + + documented as of this encounter Visit Diagnoses Not on filedocumented in this encounter"
--- OUTSIDE RECORDS SUMMARY | ~2019-10-28 | XMS | Encounter Summary ---
Demographics + + + | Address | [address] | | | [place] [address] | + + + | Home Phone | | + + + | Preferred Language | Unknown | + + + | Marital Status | Single | + + + | Latter Day Affiliation | 1013 | + + + | Race | Unknown | + + + | Ethnic Group | Unknown | + + + Author + + + | Author | [facility] | | | and [place] | + + + | Organization | [facility] | | | [...] Team Providers + +------+ + | Care Critical Care Unit Nurse Name | Role | Phone | + [...] [address] | | | | | [place] | D | [place], | | | | | [address] | [place], | [place] [address] | | | | | INJECTION, 1 | [place] [address] | Phone: | | | | | [place] | Phone: | [phone] | | | | | CHEMOTHER, | [phone] | Fax: | | | | | IV INFUSION, | Fax: | [phone] | | | | | 1 HR | [phone] | | + +--------+ + + + + Encounter Details +--------+ + + + + | Date | Type | Department | Care Team | Description | +--------+ + + + + | 08/04/ | Procedure | [facility] | | MULTIPLE SCLEROSIS | | 2019 | visit | NEUROLOGY [address] | | (Primary Dx) | | | | [address] | | | | | | [place] | | | | | | [address] | | | | | | [phone] | | | +--------+ + + + [...] + + + | Blood Pressure | 128/77 | 08/04/2019 2:09 PM | | | | | PDT | | + + + + + | Pulse | 97 | 08/04/2019 2:09 PM | | | | | PDT | | + + + + + | Temperature | 36.7 C (98 F) | 08/04/2019 2:09 PM | | | | | PDT | | + + + + + | Respiratory Rate | - | - | | + + + + + | Oxygen Saturation | 95% | 08/04/2019 2:09 PM | | | | | PDT [...] + + + documented in this encounter Patient Instructions Patient Instructions Lizz Elmore, Customer Sales Advisor - 08/04/2019 1:45 PM PDTImagin g Information Your provider has ordered MRI of your Brain *Please let us know if you are claustrophobic BEFORE your imaging appointment so the approp riate medication can be ordered* Depending on your insurance it may take several days for them to approve this order. Please allow 3 business days before contacting [facility] department, they will be able to let you know if your testing has been approved or denied. To schedule your appointment, or if you have questions about your insurance authorization, please call: . documented in this encounter Progress Notes Beatris Tejeda, ELDER - 08/04/2019 1:45 PM [id number] Pt presents for IV Tysabri infusion. Pt i dentification verified and patient taken to Infusion [place] 3. Informed consent was signed and the Touch Program questionaire completed. There are no contraindications to administration o f Tysabri. 1420 IV access was obtained without difficulty in the right hand using a 24 GA 0.75 IV cath eter. Pt tolerated well. 1423 Medication is IV Tysabri 300mg/15mL diluted in 100mL of 0.9% Normal Saline immediately prior to infusion. The infusion was started as an IVPB at a rate of 115 mL/hr utilizing an BetaVersity IV pump. Primary solution is 100 mL NS. 1523 Tysabri infusion completed. Line flushed and IV Saline locked. Pt resting comfortably for post-infusion observation period. 1623 Observation period completed. No reaction observed, pt [...] D | | | | | | [place] [address] | | | | | | [phone] | | | | | | | | +--------+ + + + + documented as of this encounter Visit Diagnoses + + | Diagnosis | + + | MULTIPLE SCLEROSIS - Primary Multiple sclerosis | + + documented in this encounter Administered Medications + +---------+ +--------+-------+--------+ | Medication Order | MAR | Action | Dose | Rate | Site | | | Action | Date | | | | + +---------+ +--------+-------+--------+ | natalizumab (TYSABRI) 300 mg in | New Bag | 08/04/20 | 300 mg | 115 | Right | | sodium chloride 0.9% 100 mL IVPB | | 19 2:23 | | mL/hr | Arm | | 300 mg, Intravenous, Administer | | PM PDT | | | | | over 1 Hours, ONCE, 08/04/19 | | | | | | | at 1715, For 1 dose, Keep in | | [...] | | | | | + +---------+ +--------+-------+--------+ +---+---+ | | | +---+---+ + +---------+ +---------+-------+--------+ | sodium chloride 0.9% (NS) | New Bag | 08/04/20 | 100 mLs | 100 | Right | | infusion at 100 mL/hr, | | 19 2:23 | | mL/hr | Arm | | Intravenous, FIXED VOLUME (see | | PM PDT | | | | | admin instruction), Starting Tue | | | | | | | 08/04/19 at 1715 | | | | | | + +---------+ +---------+-------+--------+ +---+---+ | | | +---+---+ documented in this encounter"
--- OUTSIDE RECORDS SUMMARY | ~2019-10-28 | XMS | Encounter Summary ---
Demographics + + + | Address | [address] | | | [place] [address] | + + + | Home Phone | | + + + | Preferred Language | Unknown | + + + | Marital Status | Single | + + + | Yarsani Affiliation | 1013 | + + + | Race | Unknown | + + + | Ethnic Group | Unknown | + + + Author + + + | Author | [facility] | | | and [place] | + + + | Organization | [facility] | | | [...] Team Providers + +------+ + | Care Hoop Machine Operator Name | Role | Phone | + +------+ + | Susan Ahn MD | PCP | | + +------+ + Encounter Details +--------+ + + + + | Date | Type | Department | Care Team | Description | +--------+ + + + + | 08/14/ | Abstract | [place] [facility] | DATA MIGRATION EPIFANIO | | | 2011 | | Conversion Location | SR | | | | | [phone] | | | +--------+ + + + [...] + + + | Blood Pressure | 120/80 | 12/31/2011 12:00 AM | | | | | PST | | + + + + + | Pulse | - | - | | + + + + + | Temperature | - | - | | + + + + + | Respiratory Rate | - | - | | + + + + + | Oxygen Saturation | - | - | | + + + + + | Inhaled Oxygen | - | - | | | Concentration | | | | + + + + + | Weight | 85.3 kg (188 lb) | 12/31/2011 12:00 AM | | | | | PST | | + + + + + | Height | 157.5 cm (5' 2") | 12/28/2011 12:00 AM | | | | | PST | | + + + + + | Body Mass Index | 34.39 | 12/28/2011 12:00 AM | | | | | PST | | + + + + + documented in this encounter Plan of Treatment +--------+ + [...] [address] | | | | | | [place] [address] | | | | | | [phone] | | | | | | | | +--------+ + + + + documented as of this encounter Procedures + +--------+ + + + | Procedure Name | Priori | Date/Time | Associated Diagnosis | Comments | | | ty | | | | + +--------+ + + + | ENDOSCOPY, COLON, | Routin | 01/08/2012 | | Results for this | | DIAGNOSTIC | e | 12:00 AM | | procedure are in the | | | | PST | | results section. | + +--------+ + + + documented in this encounter Results ENDOSCOPY, COLON, DIAGNOSTIC (01/08/2012 12:00 AM PST) + + | Specimen | + + | | + + + + + | Narrative | Performed At | + + + | | | + + + documented in this encounter Visit Diagnoses Not on filedocumented in this encounter
--- OUTSIDE RECORDS SUMMARY | ~2019-10-28 | XMS | Encounter Summary ---
Demographics + + + | Address | [address] | | | [place] [address] | + + + | Home Phone | | + + + | Preferred Language | Unknown | + + + | Marital Status | Single | + + + | Lutheran Affiliation | 1013 | + + + | Race | Unknown | + + + | Ethnic Group | Unknown | + + + Author + + + | Author | [facility] | | | and [place] | + + + | Organization | [facility] | | | and [...] Team Providers + +------+ + | Care Ice Puller Name | Role | Phone | + +------+ + PCP | Unavailable | + +------+ + Encounter Details +--------+ + + + + | Date | Type | Department | Care Team | Description | +--------+ + + + + | 03/21/ | Hospital | [facility] | Kaz Martin MD | | | 2006 | Encounter | MED CTR GENERIC OP | [address], [place] | | | | | CONV DEPT [address] [place], [place] | | | | | [address] [place], | [address] | | | | | [place] [address] | | | | | | [phone] | | | +--------+ + + + [...] | | | | | [place] [address] | | | | | | [phone] | | | | | | | | +--------+ + + + + documented as of this encounter Visit Diagnoses Not on filedocumented in this encounter"
--- OUTSIDE RECORDS SUMMARY | ~2019-10-28 | XMS | Encounter Summary ---
Demographics + + + | Address | [address] | | | [place] [address] | + + + | Home Phone | | + + + | Preferred Language | Unknown | + + + | Marital Status | Single | + + + | Hindu Affiliation | 1013 | + + + | Race | Unknown | + + + | Ethnic Group | Unknown | + + + Author + + + | Author | [facility] | | | and [place] | + + + | Organization | [facility] | | [...] Team Providers + +------+ + | Care Hydrogen Power Plant Engineer Name | Role | Phone | + +------+ + PCP | Unavailable | + +------+ + Encounter Details +--------+ + + + + | Date | Type | Department | Care Team | Description | +--------+ + + + + | 09/24/ | [facility] | [facility] | | | | 2005 | Encounter | MED CTR XRAY [address] | | | | | | [address] | | | | | | [place] [address] | | | | | | [phone] | | | +--------+ + + + [...] | | | | | [place] [address] | | | | | | [phone] | | | | | | | | +--------+ + + + + documented as of this encounter Visit Diagnoses Not on filedocumented in this encounter"
--- OUTSIDE RECORDS SUMMARY | ~2019-10-28 | XMS | Clinical Summary ---
Demographics + + + | Address | [address] | | | [place] [address] | + + + | Home Phone | | + + + | Preferred Language | Unknown | + + + | Marital Status | Single | + + + | Jehovah'S Witness Affiliation | Unknown | + + + | Race | White | + + + | Ethnic Group | Not or | + + + Author + + + | Author | [facility] | + + + | Organization | [facility] | + + + | Address | Unknown | + + + | Phone | Unavailable | + + + Support + + +---------+ + | Name | Relationship | Address | Phone | + + +---------+ + | Kristina Rodriguez ECON | Unknown | Unavailable | + + +---------+ + Care Team Providers + +------+ + | Care Cone Treater Name | Role | Phone | + +------+ + PCP | Unavailable | + +------+ + Source Comments ESTRELLA is fully live on both [facility] Ambulatory and [facility] InPatient.[facility] Allergies + + + + + + [...] | | | + +--------+ +--------+-------+---------+--------+ | ROOMS DIRECTOR MEDICAID | ROOMS DIRECTOR | xxxxxxxx | 12/02/19 | | | [...] | 1965 | [id number] | [place] [address] | | | nick | | | 3 (Home) | | + +--------+ +--------+ + +
--- OUTSIDE RECORDS SUMMARY | ~2019-10-28 | XMS | Encounter Summary ---
Demographics + + + | Address | [address] | | | [place] [address] | + + + | Home Phone | | + + + | Preferred Language | Unknown | + + + | Marital Status | Single | + + + | Faith Affiliation | 1013 | + + + | Race | Unknown | + + + | Ethnic Group | Unknown | + + + Author + + + | Author | [facility] | | | and [place] | + + + | Organization | [facility] | | [...] Team Providers + +------+ + | Care Director Global Intelligence Name | Role | Phone | + +------+ + | Freddie Woodward MD | PCP | | + +------+ + Encounter Details +--------+ + + + + | Date | Type | Department | Care Team | Description | +--------+ + + + + | 12/07/ | Hospital | [facility] | Conversion | | | 2015 | Encounter | [facility] | Transaction, | | | | | OUTPATIENT | Provider Unknown | | | | | PROCEDURES [address] | | | | [address] | (Fax) | | | | | [place], [place] | | | | | | [address] | | | | | | [phone] | | | +--------+ + + + [...] + + documented as of this encounter Progress Notes Denis Stokes PA - 12/07/2014 1:32 PM PSTFormatting of this note might be different fro m the original. Progress Notes by Denis Stokes PA-C at 12/07/141331 Author: Denis Stokes PA-C Service: Neurology Author Type: Physician Gluer And Wedger - Certif ied Filed: 12/07/14 7527 Date of Service: 12/07/141331 Status: Signed Parts Counterman: Denis Stokes PA-C (Physician Gluer And Wedger - Certified) The patient returns today for Tysabri treatment for relapsing type of multiple sclerosis fa iled other disease modifying agents for multiple sclerosis. No side effects or new neurologi velia symptoms from last treatment. The patient has completed the pre-infusion checklist and this was reviewed and discussed with me prior to administration of Tysabri. The patient cons ented for the treatment of Tysabri. The patient will call for any changes or questions. JCV antibody status: Negative, last 10/12/14 (0.18). documented in this e ncounter Plan of Treatment +--------+ + + + [...] | | | | | [place] [address] | | | | | | [phone] | | | | | | | | +--------+ + + + + documented as of this encounter Visit Diagnoses Not on filedocumented in this encounter"
--- OUTSIDE RECORDS SUMMARY | ~2019-10-28 | XMS | Encounter Summary ---
Demographics + + + | Address | [address] | | | [place] [address] | + + + | Home Phone | | + + + | Preferred Language | Unknown | + + + | Marital Status | Single | + + + | Buddhist Affiliation | 1013 | + + + | Race | Unknown | + + + | Ethnic Group | Unknown | + + + Author + + + | Author | [facility] | | | and [place] | + + + | Organization | [facility] | | [...] Team Providers + +------+ + | Care Pega Developer Name | Role | Phone | + +------+ + PCP | Unavailable | + +------+ + Encounter Details +--------+ + + + + | Date | Type | Department | Care Team | Description | +--------+ + + + + | 08/01/ | [facility] | [facility] | | | | 1998 | Encounter | MED CTR LABORATORY | | | | | | [address] | | | | | | [place] | | | | | | [address] | | | | | | [phone] | | | +--------+ + + + [...] | | | | | [place] [address] | | | | | | [phone] | | | | | | | | +--------+ + + + + documented as of this encounter Visit Diagnoses Not on filedocumented in this encounter"
--- OUTSIDE RECORDS SUMMARY | ~2019-10-28 | XMS | Encounter Summary ---
Demographics + + + | Address | [address] | | | [place] [address] | + + + | Home Phone | | + + + | Preferred Language | Unknown | + + + | Marital Status | Single | + + + | Buddhism Affiliation | 1013 | + + + | Race | Unknown | + + + | Ethnic Group | Unknown | + + + Author + + + | Author | [facility] | | | and [place] | + + + | Organization | [facility] | | | and [...] Team Providers + +------+ + | Care Government Affairs Director Name | Role | Phone | + +------+ + PCP | Unavailable | + +------+ + Encounter Details +--------+ + + + + | Date | Type | Department | Care Team | Description | +--------+ + + + + | 05/10/ | [facility] | [facility] | | | | 2007 | Encounter | MED CTR LABORATORY | | | | | | [address] | | | | | | [place] | | | | | | [address] | | | | | | [phone] | | | +--------+ + + + [...] | | | | | [place] [address] | | | | | | [phone] | | | | | | | | +--------+ + + + + documented as of this encounter Visit Diagnoses Not on filedocumented in this encounter"
--- OUTSIDE RECORDS SUMMARY | ~2019-10-28 | XMS | Encounter Summary ---
Demographics + + + | Address | [address] | | | [place] [address] | + + + | Home Phone | | + + + | Preferred Language | Unknown | + + + | Marital Status | Single | + + + | Voodoo Affiliation | 1013 | + + + | Race | Unknown | + + + | Ethnic Group | Unknown | + + + Author + + + | Author | [facility] | | | and [place] | + + + | Organization | [facility] | | | and [...] Team Providers + +------+ + | Care Draw Operator Name | Role | Phone | + +------+ + PCP | Unavailable | + +------+ + Encounter Details +--------+ + + + + | Date | Type | Department | Care Team | Description | +--------+ + + + + | / | [facility] | [facility] | | | | 1999 | Encounter | MED CTR LABORATORY | | | | | | [address] | | | | | | [place] | | | | | | [address] | | | | | | [phone] | | | +--------+ + + + [...] | | | | | | [address] | | | | | | [place] [address] | | | | | | [phone] | | | | | | | | +--------+ + + + + documented as of this encounter Visit Diagnoses Not on filedocumented in this encounter"
--- OUTSIDE RECORDS SUMMARY | ~2019-10-28 | XMS | Encounter Summary ---
Demographics + + + | Address | [address] | | | [place] [address] | + + + | Home Phone | | + + + | Preferred Language | Unknown | + + + | Marital Status | Single | + + + | Anabaptism Affiliation | 1013 | + + + | Race | Unknown | + + + | Ethnic Group | Unknown | + + + Author + + + | Author | [facility] | | | and [place] | + + + | Organization | [facility] | | | and [...] Team Providers + +------+ + | Care Industrial Cafeteria Manager Name | Role | Phone | + +------+ + | Freddie Woodward MD | PCP | | + +------+ + Reason for Referral Diagnostic/Screening (Routine) +--------+--------+ + + + + | Status | Reason | Specialty | Diagnoses / | Referred By | Referred To | | | | | Procedures | Contact | Contact | +--------+--------+ + + + + | Closed | | Radiology | Diagnoses | | [facility] | | | | | ALT (SGPT) | [facility] | [address] | | | | | level raised | [place], | [place], | | | | | Abdominal | TIME CLOCK REPAIRER [address] | [place] | | | | | pain | [place], [place] | [address] | | | | | Pancreatic | [address] [place] | Phone: | | | | | ductal | [place], [place] | [phone] | | | | | abnormality | [address] | Fax: | | | | | Procedures | Phone: | [phone] | | | | | MRI Abdomen | [phone] | | | | | | wo Contrast | Fax: | | | | | | | [phone] | | +--------+--------+ + + + + Encounter Details +--------+ + + + + | Date | Type | Department | Care Team | Description | +--------+ + + + + | 07/17/ | Hospital | [facility] | [facility], | ALT (SGPT) level | | 2013 | Encounter | MED CTR XRAY [address] | [place], TIME CLOCK REPAIRER [address] | raised; Abdominal | | | | [address] [place] | [place], [place] [address] | pain; Pancreatic | | | | [place] [address] | [place], [place] | ductal abnormality | | | | [phone] | [address] | | | | | | | [...] one | | 0 | 08/14/20 | 09/03/201 | | 10 mg tablet | tablet [...] | 2019 | Visit | | [address] | | | | | [address] | | | | | | [place] [address] | | | | | | [phone] | | | | | | | | +--------+ + + + + documented as of this encounter Procedures + +--------+ + + + | Procedure Name | Priori | Date/Time | Associated Diagnosis | Comments | | | ty | | | | + +--------+ + + + | MRI ABDOMEN WO | Routin | 07/17/2013 | ALT (SGPT) level | Results for this | | CONTRAST | e | 9:30 AM | raised Abdominal | procedure are in the | | | | PDT | pain Pancreatic | results section. | | | | | ductal abnormality | | + +--------+ + + + documented in this encounter Results MRI Abdomen wo Contrast (07/17/2013 9:30 AM PDT) + + | Specimen | + + | | + + + + + | Narrative | Performed At | + + + | [facility] | [place] | | Department [address] | [facility] | | [ rep [address]] [ rep [facility] | | st zip] Signed | - IMAGING | | | | | Patient Name: ROX LEE Physician: | | | BRID. : 1965 Age: 48 Sex: F Unit #: [id number] | | | Exam Date: 07/17/13 Location: [facility] | | | Report #: [id number] Page: | | | %(RAD)RES..mtdd.print.filter("pg") of %(RAD) | | | RES..mtdd.print.filter("tpg") | | | | | | Accession Number: [id number] | | | CT OF ABDOMEN WITHOUT CONTRAST, 07/17/2013 CLINICAL | | | HISTORY: ELEVATED AALT. PLEASE PERFORM MRCP. THE PATIENT HAD | | | GALLBLADDER REMOVED THIRTEEN YEARS AGO. STENT SEVEN YEARS AGO FOR | | | TWO WEEKS. NOW WITH ABDOMINAL PAIN. COMPARISON: | | | Ultrasound 01/31/[address] of abdomen 02/25/2007. | | | TECHNIQUE: Coronal and T2 HASTE sequences. 3D respiratory triggered | | | T2-weighted MRCP. Thickened SLAB T2-weighted MRCP images. MIP | | | reconstructions. FINDINGS: The common bile duct is | | | prominent. It does taper normally to the level of the ampulla. It | | | measures approximately 7 mm. There is a low insertion of the remnant | | | cystic duct. The common hepatic duct is mildly prominent measuring 6 | | | mm. The right intrahepatic duct is mildly prominent. There is a | | | relatively rapid transition to the branching right intrahepatic ducts | | | with an area of narrowing. There is also an area of narrowing in the | | | distal portion of the left intrahepatic ducts with more proximal | | | ducts out into the left lobe having a more normal caliber. There may | | | be a second area of focal narrowing more distally in the left | | | intrahepatic ducts. No distinct beading of the intrahepatic biliary | | | ducts. The pancreatic duct is well visualized. It is patent and | | | without narrowing or filling defects from the ampulla through its | | | proximal extent. It measures a greatest dimension of 2.5 mm. | | | The gallbladder is surgically absent. No obstructive uropathy. | | | There are two subcentimeter T2 hyperintensities in the right kidney. | | | These are likely small cysts. The liver and spleen are grossly | | | unremarkable but not completely evaluated. No evidence for | | | gastrointestinal tract obstruction. No aneurysmal dilatation of the | | | infrarenal abdominal aorta. IMPRESSION: 1. NO | | | DILATATION OR EVIDENCE OF OBSTRUCTION OF THE COMMON BILE DUCT OR | | | COMMON HEPATIC DUCT. 2. AREAS OF NARROWING IN THE | | | INTRAHEPATIC DUCTS. THE MOST CONSPICUOUS AND LONGEST SEGMENT IS IN THE | | | LEFT INTRAHEPATIC DUCT. THIS IS OVER ABOUT 15 MM. THERE ARE TWO | | | ADDITIONAL AREAS SUSPECTED, ONE MORE PROXIMALLY IN THE LEFT | | | INTRAHEPATIC DUCTS AND ONE DISTALLY IN THE RIGHT INTRAHEPATIC DUCTS. | | | THESE ARE NONSPECIFIC FINDINGS. THEY ARE FELT TO LIKELY REPRESENT | | | SMALL STRICTURES. THESE CAN BE SEEN IN A SETTING OF PRIMARY | | | SCLEROSING CHOLANGITIS. THEY CAN ALSO BE SMALL STRICTURES DUE TO OTHER | | | ETIOLOGIES. FURTHER EVALUATION AND CLINICAL CORRELATION MAY BE OF | | | BENEFIT. Dictated Date/Time: 07/17/2013 09:30 | | | Transcribed Date/Time: 07/17/2013 10:02 Special Technical Operations Officer: | | | <<Signature on File>> | | | Kaz | | | Elaine Forman MD07/18/13 0958 <Electronically signed by Kaz Henry | | | Dasia MILLS> Kaz Foramn MD 07/17/13 0930 | | | Special Technical Operations Officer: iwoca Nerskvdgymqui96/16/13 1002 | | | [place] | | + + + + + + + + | Performing | Address | City/State/Zipcode | Phone Number | | Organization | | | | + + + + + | [facility] | [address] 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
--- OUTSIDE RECORDS SUMMARY | ~2019-10-28 | XMS | Encounter Summary ---
Demographics + + + | Address | [address] | | | [place] [address] | + + + | Home Phone | | + + + | Preferred Language | Unknown | + + + | Marital Status | Single | + + + | Zoroastrian Affiliation | 1013 | + + + | Race | Unknown | + + + | Ethnic Group | Unknown | + + + Author + + + | Author | [facility] | | | and [place] | + + + | Organization | [facility] | | | [...] Team Providers + +------+ + | Care Drilling Machine Operator Name | Role | Phone [...] | | | | ALT (SGPT) | [facility], | [address] | | | | | level raised | [place], | [place], | | | | | Abdominal | [employer] [address] | [place] | | | | | pain | [place], [place] | [address] | | | | | Pancreatic | [address] [place] | Phone: | | | | | ductal | [place], [place] | [phone] | | | | | abnormality | [address] | Fax: | | | | | Procedures | Phone: | [phone] | | | | | MRI Abdomen | [phone] | | | | | | wo Contrast | Fax: | | | | | | | [phone] | | +--------+--------+ + + + + Reason for Visit +--------+ + | Reason | Comments | +--------+ + | Other | | +--------+ + Encounter Details +--------+ + + + + | Date | Type | Department | Care Team | Description | +--------+ + + + + | 07/08/ | Telephone | [facility] [place] | [place], | Other | | 2012 | | GASTROENTEROLOGY | [address]ANA Rayo [address] | | | | | [address] [place] | [place], [place] [address] | | | | | [address] [place], [place] | [place], [place] | | | | | [address] | [address] | | | | | [phone] | | | +--------+ + + + [...] D | | | | | | [place] [address] | | | | | | [phone] | | | | | | | | +--------+ + + + + documented as of this encounter Results MRI Abdomen wo Contrast (07/17/2013 9:30 AM PDT) + + | Specimen | + + | | + + + + + | Narrative | Performed At | + + + | [facility] | [place] | | Department [address] [facility] [place] | [facility] | | [ rep ct [address]] [ rep ct [facility] | | st zip] Signed | - IMAGING | | | | | Patient Name: ROX LEE Physician: | | | BRID.01 : 1965 Age: 48 Sex: F Unit #: [id number] | | | Exam Date: 07/17/13 Location: [facility] | | | Report #: [id number] Page: | | | %(RAD)RES..mtdd.print.filter("pg") of %(RAD) | | | RES..mtdd.print.filter("tpg") | | | | | | Accession Number: [id number] | | | CT OF ABDOMEN WITHOUT [...] | | | Transcribed Date/Time: 07/17/2013 10:02 Shoe Repair Cobbler: | | | <<Signature on File>> | | | Kaz Rodriguez | | Elaine Forman MD07/18/13 0958 <Electronically signed by Kaz Forman MD> Kaz Forman MD 07/17/1330 | | | Shoe Repair Cobbler: Scality [email or web address]/16/13 1002 | | | [place] | | + + + + + + + + | Performing | Address | City/State/Zipcode | Phone Number | | Organization | | | | + + + + + | [facility] | [address] 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
--- OUTSIDE RECORDS SUMMARY | ~2019-10-28 | XMS | Encounter Summary ---
Demographics + + + | Address | [address] | | | [place] [address] | + + + | Home Phone | | + + + | Preferred Language | Unknown | + + + | Marital Status | Single | + + + | Rastafari Affiliation | 1013 | + + + | Race | Unknown | + + + | Ethnic Group | Unknown | + + + Author + + + | Author | [facility] | | | and [place] | + + + | Organization | [facility] | | [...] Team Providers + +------+ + | Care Chemical Mixer Name | Role | Phone | + +------+ + | Freddie Woodward MD | PCP | | + +------+ + Reason for Visit +---------+ + | Reason | Comments | +---------+ + | Results | | +---------+ + Encounter Details +--------+ + + + + | Date | Type | Department | Care Team | Description | +--------+ + + + + | 07/29/ | Telephone | [facility] [place] | [facility], | Results | | 2012 | | GASTROENTEROLOGY | KEYANA [address] | | | | | [address] [place] | [place], [place] [address] | | | | | [address] [place], [place] | [place], [place] | | | | | [address] | [address] | | | | | [phone] | | | +--------+ + + + [...] D | | | | | | [place] [address] | | | | | | [phone] | | | | | | | | +--------+ + + + + documented as of this encounter Visit Diagnoses Not on filedocumented in this encounter"
--- OUTSIDE RECORDS SUMMARY | ~2019-10-28 | XMS | Encounter Summary ---
Demographics + + + | Address | [address] | | | [place] [address] | + + + | Home Phone | | + + + | Preferred Language | Unknown | + + + | Marital Status | Single | + + + | Gnosticist Affiliation | 1013 | + + + [...] Team Providers + +------+ + | Care Curtain Fitter Name | Role | Phone | + +------+ + | Freddie Woodward MD | PCP | | + +------+ + Reason for Visit +--------+ + | Reason | Comments | +--------+ + | Other | side pain with bruising | +--------+ + Encounter Details +--------+ + + + + | Date | Type | Department | Care Team | Description | +--------+ + + + + | 08/05/ | Telephone | [facility] | [facility], | Other (side pain | | 2012 | | GASTROENTEROLOGY | KEYANA Rayo [address] | with bruising) | | | | [address] [place] | [place], [place] [address] | | | | | [address] [place], [place] | [place], [place] | | | | | [address] | [address] | | | | | [phone] | | | +--------+ + + + [...] | | | | | [place] [address] | | | | | | [phone] | | | | | | | | +--------+ + + + + documented as of this encounter Visit Diagnoses Not on filedocumented in this encounter"
--- OUTSIDE RECORDS SUMMARY | ~2019-10-28 | XMS | Encounter Summary ---
Demographics + + + | Address | [address] | | | [place] [address] | + + + | Home Phone | | + + + | Preferred Language | Unknown | + + + | Marital Status | Single | + + + | Episcopalian Affiliation | 1013 | + + + | Race | Unknown | + + + | Ethnic Group | Unknown | + + + Author + + + | Author | [facility] | | | and [place] | + + + | Organization | [facility] | | | [...] Team Providers + +------+ + | Care Gasket Maker Name | Role | Phone | + +------+ + | Freddie Woodward MD | PCP | | + +------+ + Encounter Details +--------+ + + + + | Date | Type | Department | Care Team | Description | +--------+ + + + + | 10/12/ | Orders Only | [facility] | Denis Stokes, | | | 2013 | | NEUROLOGY [address] | PA-C [address] | | | | | [address] | [address] [facility] [address] | | | | | [place], [place] | [place] [address] | | | | | [address] | [phone] | | | | | [phone] | | | +--------+ + + + [...] D | | | | | | [place] [address] | | | | | | [phone] | | | | | | | [...] + + + + | TEST | [id number]: STRATIFY | | EXTERNAL | | | INFORMATION | JCV ANTIBODYTesting | | LAB | | | | performed at [facility], [address] | | | | | | [facility] [facility] [place], [place] | | | | | | [address] | | | | + + + + + + | REFERENCE | [facility] | | EXTERNAL | | | LAB TEST | DIAGNOSTICSComment: | | LAB | | | RESULTS | Testing performed at | | | | | | [facility], [address], | | | | | | [place] [address] | | | | + + + + + + | RESULT | RESULTS TO BE SENT | | EXTERNAL | | | | DIRECTLY TO PHYSICIAN BY | | LAB | | | | REFERRAL | | | | | | LABORATORY.Comment: | | | | | | Testing performed at | | | | | | [facility];[address] | | | | | | [place] [address] | | | | + + + [...]
--- OUTSIDE RECORDS SUMMARY | ~2019-10-28 | XMS | Encounter Summary ---
Demographics + + + | Address | [address] | | | [place] [address] | + + + | Home Phone | | + + + | Preferred Language | Unknown | + + + | Marital Status | Single | + + + | Moravian Affiliation | 1013 | + + + | Race | Unknown | + + + | Ethnic Group | Unknown | + + + Author + + + | Author | [facility] | | | and [place] | + + + | Organization | [facility] | | | [...] Team Providers + +------+ + | Care Advanced Developer Name | Role | Phone | + +------+ + PCP | Unavailable | + +------+ + Encounter Details +--------+ + + + + | Date | Type | Department | Care Team | Description | +--------+ + + + + | 04/28/ | Hospital | [facility] | Supriya Thomas | | | 2008 | Encounter | MED CTR EMERGENCY | Aristeo Bliss MD [address] | | | | | CENTER [address] | [facility] | | | | | [place], [place] | [place] [address] | | | | | [address] | [phone] | | | | | [phone] | | | +--------+ + + + [...] | | | | | [place] [address] | | | | | | [phone] | | | | | | | | +--------+ + + + + documented as of this encounter Visit Diagnoses Not on filedocumented in this encounter"
--- OUTSIDE RECORDS SUMMARY | ~2019-10-28 | XMS | Encounter Summary ---
Demographics + + + | Address | [address] | | | [place] [address] | + + + | Home Phone | | + + + | Preferred Language | Unknown | + + + | Marital Status | Single | + + + | Denominational Affiliation | 1013 | + + + | Race | Unknown | + + + | Ethnic Group | Unknown | + + + Author + + + | Author | [facility] | | | and [place] | + + + | Organization | [facility] | | | and [...] Team Providers + +------+ + | Care Dispensing Lead Name | Role | Phone | + +------+ + PCP | Unavailable | + +------+ + Encounter Details +--------+ + + + + | Date | Type | Department | Care Team | Description | +--------+ + + + + | 12/12/ | [facility] | [facility] | | | | 2000 | Encounter | MED CTR LABORATORY | | | | | | [address] | | | | | | [place] | | | | | | [address] | | | | | | [phone] | | | +--------+ + + + [...] | | | | | [place] [address] | | | | | | [phone] | | | | | | | | +--------+ + + + + documented as of this encounter Visit Diagnoses Not on filedocumented in this encounter"
--- OUTSIDE RECORDS SUMMARY | ~2019-10-28 | XMS | Encounter Summary ---
Demographics + + + | Address | [address] | | | [place] [address] | + + + | Home Phone | | + + + | Preferred Language | Unknown | + + + | Marital Status | Single | + + + | Bahai Affiliation | 1013 | + + + | Race | Unknown | + + + | Ethnic Group | Unknown | + + + Author + + + | Author | [facility] | | | and [place] | + + + | Organization | [facility] | | | [...] Team Providers + +------+ + | Care Veterinary Medicine Doctor Name | Role | Phone | + +------+ + PCP | Unavailable | + +------+ + Encounter Details +--------+ + + + + | Date | Type | Department | Care Team | Description | +--------+ + + + + | 03/21/ | Hospital | [facility] | Kaz Martin MD | | | 2006 | Encounter | MED CTR GENERIC OP | [address], [place] | | | | | CONV DEPT [address] [place], [place] | | | | | [place], | [address] | | | | | [place] [address] | | | | | | [phone] | | | +--------+ + + + [...] | | | | | [place] [address] | | | | | | [phone] | | | | | | | | +--------+ + + + + documented as of this encounter Visit Diagnoses Not on filedocumented in this encounter"
--- OUTSIDE RECORDS SUMMARY | ~2019-10-28 | XMS | Encounter Summary ---
Demographics + + + | Address | [address] | | | [place] [address] | + + + | Home Phone | | + + + | Preferred Language | Unknown | + + + | Marital Status | Single | + + + | Hoahaoism Affiliation | 1013 | + + + [...] Team Providers + +------+ + | Care Netting Weaver Name | Role | Phone | + +------+ + | Freddie Woodward MD | PCP | | + +------+ + Encounter Details +--------+ + + + + | Date | Type | Department | Care Team | Description | +--------+ + + + + | 04/06/ | Orders Only | [facility] | Conversion | | | 2013 | | [address] | Transaction, | | | | | [place], [place] | Provider Unknown | | | | | [address] | [phone] | | | | | [phone] | | | +--------+ + + + [...] [address] | | | | | | [address] | | | | | | [place] [address] | | | | | | [phone] | | | | | | | | +--------+ + + + + documented as of this encounter Procedures + +--------+ + + + | Procedure Name | Priori | Date/Time | Associated Diagnosis | Comments | | | ty | | | | + +--------+ + + + | REFERENCE TEST TO | Routin | 04/06/2014 | | Results for this | | [facility] | e | 4:32 PM | | procedure are in the | | | | PDT | | results section. | + +--------+ + + + documented in this encounter Results Reference Test to [facility] (04/06/2014 4:32 PM PDT) + + + + + + | Component | Value | Ref Range | Performed | Pathologist | | | | | At | Signature | + + + + + + | TEST | STRATIFY JVC | | EXTERNAL | | | INFORMATION | | | LAB | | + + + + + + | Test Code | [id number]: CORRECTED | | EXTERNAL | | | | ON 04/07 AT 1350: | | LAB | | | | PREVIOUSLY REPORTED | | | | | | [id number] ON 04/14 | | | | | | AT 1115: PREVIOUSLY | | | | | | REPORTED 05140, | | | | | | CORRECTED ON 04/07 AT | | | | | | 0613: PREVIOUSLY | | | | | | REPORTED 45098 | | | | + + + + + + | REF TEST | SEE BELOWComment: | | EXTERNAL | | | [facility] | STRATIFY JCV(TM) AB | | LAB | | | | W/RFLXJCV ANTIBODY | | | | | | | | | | | | INDETERMINATE | | | | | | | | | | | | INTERPRETATION | | | | | | | | | | | | INDETERMINATE: LOW LEVEL | | | | | | REACTIVITY DETECTED, | | | | | | | | | | | | SEE | | | | | | INHIBITION ASSAY RESULT | | | | | | TO | | | | | | | | | | | | FOLLOW FOR THE FINAL | | | | | | ANTIBODY | | | | | | | | | | | | RESULT. | | | | | | POSITIVE: | | | | | | ANTIBODIES TO ARMANDO VIRUS | | | | | | (JCV) | | | | | | | | | | | | DETECTED INDICATING THE | | | | | | PATIENT HAS | | | | | | | | | | | | BEEN EXPOSED TO | | | | | | JCV AT AN | | | | | | | | | | | | UNDETERMINED TIME. | | | | | | | | | | | | NEGATIVE: ANTIBODIES | | | | | | TO JCV NOT DETECTED.THE | | | | | | STRATIFY JCV ANTIBODY | | | | | | TEST IS AN | | | | | | ENZYME-LINKEDIMMUNOSORBE | | | | | | NT ASSAY (ALHAJI) | | | | | | DESIGNED TO DETECT | | | | | | JCVANTIBODIES TO HELP | | | | | | IDENTIFY INDIVIDUALS WHO | | | | | | HAVEBEEN EXPOSED TO THE | | | | | | VIRUS. SAMPLES WITH LOW | | | | | | LEVELREACTIVITY IN THE | | | | | | DETECTION ASSAY ARE | | | | | | RETESTED CHEO | | | | | | CONFIRMATION | | | | | | (INHIBITION) ASSAY TO | | | | | | CONFIRMPRESENCE OR | | | | | | ABSENCE OF JCV-SPECIFIC | | | | | | ANTIBODIES.STRATIFY | | | | | | JCV(TM) INHIBITIONJCV | | | | | | ANTIBODY BY INHIBITION | | | | | | NEGATIVE | | | | | | | | | | | | INTERPRETATION | | | | | | | | | | | | POSITIVE: ANTIBODIES | | | | | | TO ARMANDO VIRUS (JCV) | | | | | | DETECTED | | | | | | | | | | | | INDICATING THE PATIENT | | | | | | HAS BEEN EXPOSED | | | | | | | | | | | | TO JCV AT AN | | | | | | UNDETERMINED TIME | | | | | | | | | | | | NEGATIVE: ANTIBODIES | | | | | | TO JCV NOT DETECTED | | | | + + + + + + + + | Specimen | + + | | + + + + + | Narrative | Performed At | + + + | Attending/Primary Provider: , TOBI PICHARDO, EVGENY, , , , KENAN | EXTERNAL LAB | | Ordering Provider: , TOBI PICHARDO, EVGENY, , , , KENAN | | + + + + +---------+ + + | Performing | Address | City/State/Zipcode | Phone Number | | Organization | | | | + +---------+ + + | EXTERNAL LAB | | | | + +---------+ + + documented in this encounter Visit Diagnoses Not on filedocumented in this encounter"
--- OUTSIDE RECORDS SUMMARY | ~2019-10-28 | XMS | Encounter Summary ---
Demographics + + + | Address | [address] | | | [place] [address] | + + + | Home Phone | | + + + | Preferred Language | Unknown | + + + | Marital Status | Single | + + + | Mormonism Affiliation | 1013 | + + + | Race | Unknown | + + + | Ethnic Group | Unknown | + + + Author + + + | Author | [facility] | | | and [place] | + + + | Organization | [facility] | | | and [...] Team Providers + +------+ + | Care Head Swamper Name | Role | Phone | + +------+ + PCP | Unavailable | + +------+ + Encounter Details +--------+ + + + + | Date | Type | Department | Care Team | Description | +--------+ + + + + | 11/13/ | [facility] | [facility] | | | | 1999 | Encounter | MED CTR LABORATORY | | | | | | [address] | | | | | | [place] | | | | | | [address] | | | | | | [phone] | | | +--------+ + + + [...] | | | | | [place] [address] | | | | | | [phone] | | | | | | | | +--------+ + + + + documented as of this encounter Visit Diagnoses Not on filedocumented in this encounter"
--- OUTSIDE RECORDS SUMMARY | ~2019-10-28 | XMS | Encounter Summary ---
Demographics + + + | Address | [address] | | | [place] [address] | + + + | Home Phone | | + + + | Preferred Language | Unknown | + + + | Marital Status | Single | + + + | Nondenominational Affiliation | 1013 | + + + | Race | Unknown | + + + | Ethnic Group | Unknown | + + + Author + + + | Author | [facility] | | | and [place] | + + + | Organization | [facility] | | [...] Team Providers + +------+ + | Care Surgeon Chief Name | Role | Phone | + +------+ + PCP | Unavailable | + +------+ + Encounter Details +--------+ + + + + | Date | Type | Department | Care Team | Description | +--------+ + + + + | 02/20/ | [facility] | [facility] | | | | 2006 | Encounter | MED CTR XRAY [address] | | | | | | [address] | | | | | | [place] [address] | | | | | | [phone] | | | +--------+ + + + [...] | | | | | [place] [address] | | | | | | [phone] | | | | | | | | +--------+ + + + + documented as of this encounter Visit Diagnoses Not on filedocumented in this encounter"
--- OUTSIDE RECORDS SUMMARY | ~2019-10-28 | XMS | Encounter Summary ---
Demographics + + + | Address | [address] | | | [place] [address] | + + + | Home Phone [...] + | Author | [facility] | | | and [place] | + + + | Organization | [facility] | | | and [...] Team Providers + +------+ + | Care Harness And Bag Inspector Name | Role | Phone | + +------+ + PCP | Unavailable | + +------+ + Encounter Details +--------+ + + + + | Date | Type | Department | Care Team | Description | +--------+ + + + + | 05/10/ | [facility] | [facility] | | | | 2007 | Encounter | MED CTR LABORATORY | | | | | | [address] | | | | | | [place] | | | | | | [address] | | | | | | [phone] | | | +--------+ + + + [...] | | | | | [place] [address] | | | | | | [phone] | | | | | | | | +--------+ + + + + documented as of this encounter Visit Diagnoses Not on filedocumented in this encounter"
--- OUTSIDE RECORDS SUMMARY | ~2019-10-28 | XMS | Encounter Summary ---
Demographics + + + | Address | [address] | | | [place] [address] | + + + | Home Phone | | + + + | Preferred Language | Unknown | + + + | Marital Status | Single | + + + | Sabianism Affiliation | 1013 | + + + | Race | Unknown | + + + | Ethnic Group | Unknown | + + + Author + + + | Author | [facility] | | | and [place] | + + + | Organization | [facility] | | | [...] Team Providers + +------+ + | Care Jewel Diameter Gauger Name | Role | Phone | + +------+ + | Freddie Woodward MD | PCP | | + +------+ + Encounter Details +--------+ + + + + | Date | Type | Department | Care Team | Description | +--------+ + + + + | 10/05/ | Orders Only | [facility] | Denis Stokes, | | | 2014 | | NEUROLOGY [address] | PA-C [address] | | | | | [address] | [address]IVE [facility] [address] | | | | | [place], [place] | [place] [address] | | | | | [address] | [phone] | | | | | [phone] | | | +--------+ + + + [...] D | | | | | | [place] [address] | | | | | | [phone] | | | | | | | | +--------+ + + + + documented as of this encounter Procedures + +--------+ + + + | Procedure Name | Priori | Date/Time | Associated Diagnosis | Comments | | | ty | | | | + +--------+ + + + | ARMANDO VIRUS AB W/INDEX, | Routin | 10/05/2015 | | Results for this | | QUAL, REFLEX INHIB | e | 4:37 PM | | procedure are in the | | ASSAY | | PST | | results section. | + +--------+ + + + documented in this encounter Results ARMANDO Virus Antbody W/Index, Qual, Reflex (10/05/2015 4:37 PM PST) + + + + + + | Component | Value | Ref Range | Performed | Pathologist | | | | | At | Signature | + + + + + + | Index Value | 0.18Comment: Testing | | EXTERNAL | | | | performed at [place] [facility] | | LAB | | | | [facility] | | | | | | Diagnostics, [address] | | | | | | [address] | | | | | | [place] [address] | | | | + + + + + + | HLA | NEGATIVEComment: INDEX | | EXTERNAL | | | Antibody | INTERPRETIVE CRITERIA: | | LAB | | | Result | <0.20 NEGATIVE | | | | | | 0.20-0.40 | | | | | | INDETERMINATE >0.40 | | | | | | POSITIVEINTERPRETATION | | | | | | NEGATIVE: | | | | | | ANTIBODIES TO JCV NOT | | | | | | DETECTED. | | | | | | INDETERMINATE: LOW | | | | | | LEVEL REACTIVITY | | | | | | DETECTED, | | | | | | SEE INHIBITION | | | | | | ASSAY RESULT TO | | | | | | FOLLOW FOR | | | | | | THE FINAL ANTIBODY | | | | | | RESULT. | | | | | | POSITIVE: | | | | | | ANTIBODIES TO ARMANDO VIRUS | | | | | | (JCV) | | | | | | DETECTED INDICATING | | | | | | THE PATIENT HAS | | | | | | BEEN EXPOSED | | | | | | TO JCV AT AN | | | | | | UNDETERMINED | | | | | | TIME.THE STRATIFY JCV | | | | | | ANTIBODY TEST IS AN | | | | [...] JCV-SPECIFIC | | | | | | ANTIBODIES.Testing | | | | | | performed at [facility] | | | | | | [facility] | | | | | | Diagnostics, [address] | | | | | | [address] | | | | | | [place] [address] | | | | + + + [...]
--- OUTSIDE RECORDS SUMMARY | ~2019-10-28 | XMS | Encounter Summary ---
Demographics + + + | Address | [address] | | | [place] [address] | + + + | Home Phone | | + + + | Preferred Language | Unknown | + + + | Marital Status | Single | + + + | Yazdanism Affiliation | 1013 | + + + [...] Team Providers + +------+ + | Care Journeyman Plumber Name | Role | Phone | + +------+ + PCP | Unavailable | + +------+ + Encounter Details +--------+ + + + + | Date | Type | Department | Care Team | Description | +--------+ + + + + | 08/01/ | [facility] | [facility] | | | | 1998 | Encounter | MED CTR LABORATORY | | | | | | [address] | | | | | | [place] | | | | | | [address] | | | | | | [phone] | | | +--------+ + + + [...] | | | | | [place] [address] | | | | | | [phone] | | | | | | | | +--------+ + + + + documented as of this encounter Visit Diagnoses Not on filedocumented in this encounter"
--- OUTSIDE RECORDS SUMMARY | ~2019-10-28 | XMS | Encounter Summary ---
Demographics + + + | Address | [address] | | | [place] [address] | + + + | Home Phone | | + + + | Preferred Language | Unknown | + + + | Marital Status | Single | + + + | Shinto Affiliation | 1013 | + + + [...] Team Providers + +------+ + | Care Driver Starting Gate Name | Role | Phone | + +------+ + PCP | Unavailable | + +------+ + Encounter Details +--------+ + + + + | Date | Type | Department | Care Team | Description | +--------+ + + + + | 04/26/ | [facility] | [facility] | | | | 1999 | Encounter | MED CTR LABORATORY | | | | | | [address] | | | | | | [place] | | | | | | [address] | | | | | | [phone] | | | +--------+ + + + [...] | | | | | [place] [address] | | | | | | [phone] | | | | | | | | +--------+ + + + + documented as of this encounter Visit Diagnoses Not on filedocumented in this encounter"
--- OUTSIDE RECORDS SUMMARY | ~2019-10-28 | XMS | Encounter Summary ---
Demographics + + + | Address | [address] | | | [place] [address] | + + + | Home Phone | | + + + | Preferred Language | Unknown | + + + | Marital Status | Single | + + + | Mandaeism Affiliation | 1013 | + + + | Race | Unknown | + + + | Ethnic Group | Unknown | + + + Author + + + | Author | [facility] | | | and [place] | + + + | Organization | [facility] | | | [...] Providers + +------+ + | Care Journeyman Pipe Welder Name | Role | Phone | + +------+ + | Freddie Woodward MD | PCP | | + +------+ + Encounter Details +--------+ + + + + | Date | Type | Department | Care Team | Description | +--------+ + + + + | 05/25/ | Hospital | [facility] | Conversion | | | 2013 | Encounter | [facility] | Transaction, | | | | | OUTPATIENT | Provider Unknown | | | | | PROCEDURES [address] | (Fax) | | | | | [place], [place] | | | | | | [address] | | | | | | [phone] | | | +--------+ + + + [...] | | | | | [place] [address] | | | | | | [phone] | | | | | | | | +--------+ + + + + documented as of this encounter Visit Diagnoses Not on filedocumented in this encounter"
--- OUTSIDE RECORDS SUMMARY | ~2019-10-28 | XMS | Encounter Summary ---
Demographics + + + | Address | [address] | | | [place] [address] | + + + | Home Phone | | + + + | Preferred Language | Unknown | + + + | Marital Status | Single | + + + | Zoroastrian Affiliation | 1013 | + + + | Race | Unknown | + + + | Ethnic Group | Unknown | + + + Author + + + | Author | [facility] | | | and [place] | + + + | Organization | [facility] | | | and [...] Team Providers + +------+ + | Care Marine Engineering Teacher Name | Role | Phone | + +------+ + PCP | Unavailable | + +------+ + Encounter Details +--------+ + + + + | Date | Type | Department | Care Team | Description | +--------+ + + + + | 03/04/ | [facility] | [facility] | | | | 1999 | Encounter | MED CTR LABORATORY | | | | | | [address] | | | | | | [place] | | | | | | [address] | | | | | | [phone] | | | +--------+ + + + [...] | | | | | [place] [address] | | | | | | [phone] | | | | | | | | +--------+ + + + + documented as of this encounter Visit Diagnoses Not on filedocumented in this encounter"
--- OUTSIDE RECORDS SUMMARY | ~2019-10-28 | XMS | Encounter Summary ---
Demographics + + + | Address | [address] | | | [place] [address] | + + + | Home Phone | | + + + | Preferred Language | Unknown | + + + | Marital Status | Single | + + + | Taoism Affiliation | 1013 | + + + | Race | Unknown | + + + | Ethnic Group | Unknown | + + + Author + + + | Author | [facility] | | | and [place] | + + + | Organization | [facility] | | [...] Team Providers + +------+ + | Care Identity Management Consultant Name | Role | Phone | + +------+ + PCP | Unavailable | + +------+ + Encounter Details +--------+ + + + + | Date | Type | Department | Care Team | Description | +--------+ + + + + | 01/26/ | [facility] | [facility] | | | | 2000 | Encounter | MED CTR EMERGENCY | | | | | | CENTER [address] | | | | | | [place], [place] | | | | | | [address] | | | | | | [phone] | | | +--------+ + + + [...] | | | | | [place] [address] | | | | | | [phone] | | | | | | | | +--------+ + + + + documented as of this encounter Visit Diagnoses Not on filedocumented in this encounter"
--- OUTSIDE RECORDS SUMMARY | ~2019-10-28 | XMS | Encounter Summary ---
Demographics + + + | Address | [address] | | | [place] [address] | + + + | Home Phone | | + + + | Preferred Language | Unknown | + + + | Marital Status | Single | + + + | Rastafarian Affiliation | 1013 | + + + | Race | Unknown | + + + | Ethnic Group | Unknown | + + + Author + + + | Author | [facility] | | | and [place] | + + + | Organization | [facility] | | [...] Team Providers + +------+ + | Care Shipping Packer Name | Role | Phone | + [...] + + | 08/05/ | Telephone | [facility] | [facility], | Other (side pain | | 2012 | | GASTROENTEROLOGY | [address] | with bruising) | | | | [address] [place] | [place] [place] [address] | | | | | [address] [place], [place] | [place], [place] | | | | | [address] | [address] | | | | | [phone] | | | +--------+ + + + [...] | | | | | [place] [address] | | | | | | [phone] | | | | | | | | +--------+ + + + + documented as of this encounter Visit Diagnoses Not on filedocumented in this encounter"
--- OUTSIDE RECORDS SUMMARY | ~2019-10-28 | XMS | Encounter Summary ---
Demographics + + + | Address | [address] | | | [place] [address] | + + + | Home Phone [...] + + + | Author | [facility] | | | and [place] | + + + | Organization | [facility] | | [...] Team Providers + +------+ + | Care Office Services Assistant Name | Role | Phone | + +------+ + | Freddie Woodward MD | PCP | | + +------+ + Encounter Details +--------+ + + + + | Date | Type | Department | Care Team | Description | +--------+ + + + + | 07/07/ | Orders Only | [facility] | Denis Stokes, | | | 2018 | | [address] | [address] | | | | | [place], [place] | [address] | | | | | [address] | [place] [address] | | | | | [phone] | [phone] | | | | | | | [...] [place] | | | | | | [address] | | | | | | [place] [address] | | | | | | [phone] | | | | | | | | +--------+ + + + + documented as of this encounter Procedures + +--------+ + + + | Procedure Name | Priori | Date/Time | Associated Diagnosis | Comments | | | ty | | | | + +--------+ + + + | EXTERNAL LAB: CBC | Routin | 07/07/2019 | | Results for this | | | e | 6:36 PM | | procedure are in the | | | | PDT | | results section. | + +--------+ + + + | COMPREHENSIVE | Routin | 07/07/2019 | | Results for this | | METABOLIC PANEL | e | 6:36 PM | | procedure are in the | | | | PDT | | results section. | + +--------+ + + + documented in this encounter Results External Lab: CBC (07/07/2019 6:36 PM PDT) + + + + + + | Component | Value | Ref Range | Performed | Pathologist | | | | | At | Signature | + + + + + + | WBC | 6.13 | 3.80 - 11.00 | EXTERNAL | | | | | 10*3/uL | LAB | | + + + + + + | RED CELL | 4.90 | 3.70 - 5.10 | EXTERNAL | | | COUNT | | 10*6/uL | LAB | | + + + + + + | Hgb | 14.7 | 11.3 - 15.5 | EXTERNAL | | | | | g/dL | LAB | | + + + + + + | Hematocrit, | 43.4 | 34.0 - 46.0 % | EXTERNAL | | | POC | | | LAB | | + + + + + + | MCV | 88.7 | 80.0 - 100.0 fL | EXTERNAL | | | | | | LAB | | + + + + + + | MCH | 30.1 | 27.0 - 34.0 pg | EXTERNAL | | | | | | LAB | | + + + + + + | MCHC | 33.9 | 32.0 - 35.5 | EXTERNAL | | | | | g/dL | LAB | | + + + + + + | RDW-CV | 47.3 | 37 - 53 fL | EXTERNAL | | | | | | LAB | | + + + + + + | Platelet | 192 | 150 - 400 | EXTERNAL | | | Count | | 10*3/uL | LAB | | | Plasma | | | | | + + + + + + | MPV | 9.4 | fL | EXTERNAL | | | | | | LAB | | + + + + + + | Differentia | AUTOMATED | | EXTERNAL | | | l Type | | | LAB | | + + + + + + | % Segmented | 43.47 | % | EXTERNAL | | | | | | LAB | | | Neutrophils | | | | | + + + + + + | % | 43.34 | % | EXTERNAL | | | Lymphocytes | | | LAB | | + + + + + + | % Monocytes | 7.10 | % | EXTERNAL | | | | | | LAB | | + + + + + + | % | 5.01 | % | EXTERNAL | | | Eosinophils | | | LAB | | + + + + + + | % Basophils | 1.08 | % | EXTERNAL | | | | | | LAB | | + + + + + + | Absolute | 2.67 | 1.90 - 7.40 | EXTERNAL | | | Segmented | | 10*3/uL | LAB | | | Neutrophils | | | | | + + + + + + | Absolute | 2.66 | 1.00 - 3.90 | EXTERNAL | | | Lymphocytes | | 10*3/uL | LAB | | + + + + + + | Absolute | 0.44 | 0.00 - 0.80 | EXTERNAL | | | Monocytes | | 10*3/uL | LAB | | + + + + + + | Absolute | 0.31 | 0.00 - 0.50 | EXTERNAL | | | Eosinophils | | 10*3/uL | LAB | | + + + + + + | Absolute | 0.07 | 0.00 - 0.10 | EXTERNAL | | | Basophils | | 10*3/uL | LAB | | + + + + + + + + | Specimen | + + | Blood specimen | | (specimen) | + + + +---------+ + + | Performing | Address | City/State/Zipcode | Phone Number | | Organization | | | | + +---------+ + + | EXTERNAL LAB | | | | + +---------+ + + Comprehensive Metabolic Panel (07/07/2019 6:36 PM PDT) + + + + + + | Component | Value | Ref Range | Performed | Pathologist | | | | | At | Signature | + + + + + + | Na | 142 | 135 - 145 | EXTERNAL | | | | | mmol/L | LAB | | + + + + + + | K | 3.5 | 3.5 - 4.9 | EXTERNAL | | | | | mmol/L | LAB | | + + + + + + | Cl | 102 | 99 - 109 mmol/L | EXTERNAL | | | | | | LAB | | + + + + + + | CO2 | 32 | 23 - 32 mmol/L | EXTERNAL | | | | | | LAB | | + + + + + + | Anion Gap | 12 | 5 - 20 mmol/L | EXTERNAL | | | | | | LAB | | + + + + + + | Glucose, | 88 | 65 - 99 mg/dL | EXTERNAL | | | Fasting | | | LAB | | + + + + + + | BUN | 17 | 8 - 25 mg/dL | EXTERNAL | | | | | | LAB | | + + + + + + | Creatinine | 0.9 | 0.50 - 1.00 | EXTERNAL | | | | | mg/dL | LAB | | + + + + + + | BUN/Creatin | 19 | | EXTERNAL | | | ine Ratio | | | LAB | | + + + + + + | Calcium | 8.8 | 8.5 - 10.5 | EXTERNAL | | | | | mg/dL | LAB | | + + + + + + | Protein, | 6.9 | 6.3 - 8.2 g/dL | EXTERNAL | | | Total | | | LAB | | + + + + + + | Albumin | 4.4 | 3.6 - 5.0 g/dL | EXTERNAL | | | | | | LAB | | + + + + + + | Globulin | 2.5 | 1.3 - 4.9 g/dL | EXTERNAL | | | | | | LAB | | + + + + + + | A/G Ratio | 1.8 | 1.0 - 2.4 | EXTERNAL | | | | | | LAB | | + + + + + + | Bilirubin | 1.6 (H) | 0.1 - 1.5 mg/dL | EXTERNAL | | | Total | | | LAB | | + + + + + + | ALP, | 78 | 35 - 115 U/L | EXTERNAL | | | External | | | LAB | | + + + + + + | AST | 22 | 10 - 45 U/L | EXTERNAL | | | | | | LAB | | + + + + + + | ALT | 41 | 10 - 65 U/L | EXTERNAL | | | | | | LAB | | + + + + + + | Estimated | >60Comment: GFR <60: | mL/min/1.73_m2 | EXTERNAL | | | GFR | CHRONIC KIDNEY DISEASE, | | LAB | | | | IF FOUND OVER A 3 MONTH | | | | | | PERIOD. GFR <15: KIDNEY | | | | | | FAILURE. FOR | | | | | | AMERICANS, MULTIPLY THE | | | | | | CALCULATED GFR BY 1.210. | | | | | | This eGFR is calculated | | | | | | using the [facility] | | | | | | traceable equation. | | | | + + + + + + + + | Specimen | + + | Blood specimen | | (specimen) | + + + +---------+ + + | Performing | Address | City/State/Zipcode | Phone Number | | Organization | | | | + +---------+ + + | EXTERNAL LAB | | | | + +---------+ + + documented in this encounter Visit Diagnoses Not on filedocumented in this encounter"
--- OUTSIDE RECORDS SUMMARY | ~2019-10-28 | XMS | Encounter Summary ---
Demographics + + + | Address | [address] | | | [place] [address] | + + + | Home Phone | | + + + | Preferred Language | Unknown | + + + | Marital Status | Single | + + + | Bahai Affiliation | 1013 | + + + | Race | Unknown | + + + | Ethnic Group | Unknown | + + + Author + + + | Author | [facility] | | | and [place] | + + + | Organization | [facility] | | | [...] Providers + +------+ + | Care Director Trading Name | Role | Phone | + +------+ + PCP | Unavailable | + +------+ + Encounter Details +--------+ + + + + | Date | Type | Department | Care Team | Description | +--------+ + + + + | 01/30/ | [facility] | [facility] | | | | 2000 | Encounter | MED CTR LABORATORY | | | | | | [address] | | | | | | [place] | | | | | | [address] | | | | | | [phone] | | | +--------+ + + + [...] | | | | | [place] [address] | | | | | | [phone] | | | | | | | | +--------+ + + + + documented as of this encounter Visit Diagnoses Not on filedocumented in this encounter"
--- OUTSIDE RECORDS SUMMARY | ~2019-10-28 | XMS | Encounter Summary ---
Demographics + + + | Address | [address] | | | [place] [address] | + + + | Home Phone | | + + + | Preferred Language | Unknown | + + + | Marital Status | Single | + + + | Oriental Orthodox Affiliation | 1013 | + + [...] Team Providers + +------+ + | Care Cognos Tm1 Developer Name | Role | Phone | + +------+ + PCP | Unavailable | + +------+ + Encounter Details +--------+ + + + + | Date | Type | Department | Care Team | Description | +--------+ + + + + | 10/13/ | [facility] | [facility] | | | | 2006 | Encounter | MED CTR XRAY [address] | | | | | [address] | | | | | | [place] [address] | | | | | | [phone] | | | +--------+ + + + [...] | | | | | [place] [address] | | | | | | [phone] | | | | | | | | +--------+ + + + + documented as of this encounter Visit Diagnoses Not on filedocumented in this encounter"
--- OUTSIDE RECORDS SUMMARY | ~2019-10-28 | XMS | Encounter Summary ---
Demographics + + + | Address | [address] | | | [place] [address] | + + + | Home Phone | | + + + | Preferred Language | Unknown | + + + | Marital Status | Single | + + + | Mu-Ism Affiliation | 1013 | + + + | Race | Unknown | + + + | Ethnic Group | Unknown | + + + Author + + + | Author | [facility] | | | and [place] | + + + | Organization | [facility] | | | [...] Team Providers + +------+ + | Care Frame Builder Name | Role | Phone | + +------+ + | Lucy Godinez PA-C | PCP | | + +------+ + Reason for Visit +--------+ + | Reason | Comments | +--------+ + | Other | Touch Reauthorization | +--------+ + Encounter Details +--------+ + + + + | Date | Type | Department | Care Team | Description | +--------+ + + + + | 10/13/ | Documentati | [facility] | Lizz Elmore | [place] (Touch | | 2019 | on | NEUROLOGY [address] | [place], [place] Agricultural [employer] | Reauthorization) | | | | [address] [address] | | | | | | [place] | | | | | | [address] | | | | | | [phone] | | | +--------+ + + + [...] documented as of this encounter Progress Notes Lizz Elmore, County Agricultural Agent - 10/13/2019 8:20 AM Milton Mendozann 963 successfully re-authorized through [employer] for continuing Tysabri infusions for multiple sclerosis treatment. Enrollment end date: 04/20/2020 [facility]: "Tysabri Outreach: Unified Commitment to Health" [place] cumisaias in this encounter Plan of Treatment +--------+ [...] Leon | | | | | | [place] [address] | | | | | | [phone] | | | | | | | | +--------+ + + + + documented as of this encounter Visit Diagnoses Not on filedocumented in this encounter
--- OUTSIDE RECORDS SUMMARY | ~2019-10-28 | XMS | Encounter Summary ---
Demographics + + + | Address | [address] | | | [place] [address] | + + + | Home Phone [...] Author + + + | Author | [facility] | | | and [place] | + + + | Organization | [facility] | | [...] Team Providers + +------+ + | Care Scrubber System Attendant Name | Role | Phone | + +------+ + | Freddie Woodward MD | PCP | | + +------+ + Encounter Details +--------+ + + + + | Date | Type | Department | Care Team | Description | +--------+ + + + + | 04/26/ | Hospital | [facility] | Conversion | Multiple sclerosis | | 2017 | Encounter | [facility] | Transaction, | ([facility]) | | | | [address] | Provider Unknown | | | | | [place], [place] | | | | | | [address] | (Fax) | | | | | [phone] | | | +--------+ + + + [...] + + + +---------+ + + | estradiol | Place 1 patch onto | | 0 | 01/23/20 | | | (VIVELLE-DOT) 0.05 | the skin once a | | | 17 | | | mg/24 hr | week. | | | | | + + + +---------+ + + | fluticasone | Inhale 2 sprays in | | 0 | 08/14/20 | | | (FLONASE) 50 | each nostril once | | | 12 | | | mcg/nasal spray | daily | | | | | + + + +---------+ + + | gabapentin | Take 1 capsule by | | 0 | 04/10/20 | | | (NEURONTIN) 300 mg | mouth two times | | | 17 | | | capsule | daily. | | | | | + + [...] +---------+ + + | prazosin | Take 6 mg by mouth | | 0 | 04/10/20 | | | (MINIPRESS) 2 MG | nightly. | | | 17 | | | capsule | | | [...] + + | traMADol (ULTRAM) | Take 2 tablet by | | 0 | 04/10/20 | | | 50 mg tablet | mouth 3 (three) | | | 17 | | | | times daily. 1-2 | | | | | | | tabs by mouth | | | | | + + [...] mouth | | 0 | 08/14/20 | 09/03/201 | | (ATARAX) 25 MG | nightly. [...] D | | | | | | [place] [address] | | | | | | [phone] | | | | | | | | +--------+ + + + + documented as of this encounter Procedures + +--------+ + + + | Procedure Name | Priori | Date/Time | Associated Diagnosis | Comments | | | ty | | | | + +--------+ + + + | MRI BRAIN WO | Routin | 04/26/2017 | | Results for this | | CONTRAST LIMITED | e | 2:56 PM | | procedure are in the | | | | PDT | | results section. | + +--------+ + + + documented in this encounter Results MRI Brain wo Contrast Limited (04/26/2017 2:56 PM PDT) + + | Specimen | + + | | + + + + + | Impressions | Performed At | + + + | 1. Multiple stable white matter lesions most consistent with | | | patient's history of multiple sclerosis. | | + + + + + + | Narrative | Performed At | + + + | [facility] MRI BRAIN WO LIMITED HISTORY: Multiple sclerosis | | | on Tysabi. Evaluate for PML. TECHNIQUE: Axial flair, sagittal | | | FLAIR, and axial diffusion images of the brain were obtained. | | | COMPARISON: 02/01/2016 FINDINGS: Multiple small focal areas of | | | increased T2 and FLAIR signal seen within the supratentorial white | | | matter that appear stable to the previous examination. The largest is | | | in the periventricular white matter right frontal lobe measuring 6.8 | | | mm. No restricted diffusion. No evidence for PML. Small focal signal | | | abnormality within the proximal cervical spine, stable. | | + + + + + | Procedure Note | + + | Darrin He Conversion - 07/15/2019 7:48 PM PDT [facility] BRAIN WO LIMITED | | HISTORY:Multiple sclerosis on Tysabi. Evaluate for PML. TECHNIQUE:Axial flair, sagittal | | FLAIR, and axial diffusion images of the brain were obtained. COMPARISON:02/01/2016 | | FINDINGS:Multiple small focal areas of increased T2 and FLAIR signal seen within the | | supratentorial white matter that appear stable to the previous examination. The largest | | is in the periventricular white matter right frontal lobe measuring 6.8 mm. No | | restricted diffusion. No evidence for PML. Small focal signal abnormality within the | | proximal cervical spine, stable. IMPRESSION: 1. Multiple stable white matter lesions | | most consistent with patient's history of multiple sclerosis. | |02/01/2016 | | | |FINDINGS: | |Multiple small focal areas of increased T2 and FLAIR signal seen within the supratentorial white matter that appear stable to the previous examination. The largest is in the periventr icular white matter right | |frontal lobe measuring 6.8 mm. No restricted | |diffusion. No evidence for PML. Small focal signal abnormality within the proximal cervical spine, stable. | | | |IMPRESSION: | |1. Multiple stable white matter lesions most consistent with patient's history of multiple sclerosis. | | | | | + + documented in this encounter Visit Diagnoses + + | Diagnosis | + + | Multiple sclerosis (HCC) Multiple sclerosis | + + documented in this encounter"
--- OUTSIDE RECORDS SUMMARY | ~2019-10-28 | XMS | Encounter Summary ---
Demographics + + + | Address | [address] | | | [place] [address] | + + + | Home Phone | | + + + | Preferred Language | Unknown | + + + | Marital Status | Single | + + + | Cheondoism Affiliation | 1013 | + + + [...] Team Providers + +------+ + | Care Oil Seal Assembler Name | Role | Phone | + +------+ + PCP | Unavailable | + +------+ + Encounter Details +--------+ + + + + | Date | Type | Department | Care Team | Description | +--------+ + + + + | 03/29/ | [facility] | [facility] | | | | 1999 | Encounter | MED CTR LABORATORY | | | | | | [address] | | | | | | [place] | | | | | | [address] | | | | | | [phone] | | | +--------+ + + + [...] | | | | | [place] [address] | | | | | | [phone] | | | | | | | | +--------+ + + + + documented as of this encounter Visit Diagnoses Not on filedocumented in this encounter"
--- OUTSIDE RECORDS SUMMARY | ~2019-10-28 | XMS | Encounter Summary ---
Demographics + + + | Address | [address] | | | [place] [address] | + + + | Home Phone | | + + + | Preferred Language | Unknown | + + + | Marital Status | Single | + + + | Congregation Affiliation | 1013 | + + + [...] Team Providers + +------+ + | Care Survey Associate Name | Role | Phone | + +------+ + PCP | Unavailable | + +------+ + Encounter Details +--------+ + + + + | Date | Type | Department | Care Team | Description | +--------+ + + + + | 04/15/ | [facility] | [facility] | | | | 1999 - | Encounter | MED CTR GENERIC PSY | | | | | | CONV DEPT [address] | | | | [address] | | [address], | | | | 2001 | | [place] [address] | | | | | | [phone] | | | +--------+ + + + [...] | | | | | [place] [address] | | | | | | [phone] | | | | | | | | +--------+ + + + + documented as of this encounter Visit Diagnoses Not on filedocumented in this encounter"
--- OUTSIDE RECORDS SUMMARY | ~2019-10-28 | XMS | Encounter Summary ---
Demographics + + + | Address | [address] | | | [place] [address] | + + + | Home Phone | | + + + | Preferred Language | Unknown | + + + | Marital Status | Single | + + + | Restorationism Affiliation | 1013 | + + + | Race | Unknown | + + + | Ethnic Group | Unknown | + + + Author + + + | Author | [facility] | | | and [place] | + + + | Organization | [facility] | | | [...] Team Providers + +------+ + | Care Neurosurgery Research Director Name | Role | Phone | + +------+ + PCP | Unavailable | + +------+ + Encounter Details +--------+ + + + + | Date | Type | Department | Care Team | Description | +--------+ + + + + | 03/04/ | [facility] | [facility] | | | | 1999 | Encounter | MED CTR LABORATORY | | | | | | [address] | | | | | | [place] | | | | | | [address] | | | | | | [phone] | | | +--------+ + + + [...] | | | | | [place] [address] | | | | | | [phone] | | | | | | | | +--------+ + + + + documented as of this encounter Visit Diagnoses Not on filedocumented in this encounter"
--- OUTSIDE RECORDS SUMMARY | ~2019-10-28 | XMS | Encounter Summary ---
Demographics + + + | Address | [address] | | | [place] [address] | + + + | Home Phone [...] Team Providers + +------+ + | Care Asbestos Coverer Name | Role | Phone | + +------+ + | Freddie Woodward MD | PCP | | + +------+ + Reason for Referral Evaluate & Treat (Routine) +--------+ + + + + + | Status | Reason | Specialty | Diagnoses / | Referred By | Referred To | | | | | Procedures | Contact | Contact | +--------+ + + + + + | Closed | Specialty | Gastroenterol | Diagnoses | | [facility] | | | Services | ogy | Nonspecific | [place], | GASTROENTEROL | | | Required | | abnormal | [place], | OGY [address] | | | | | results of | [employer]IOR [employer] | | | | | liver | [place], [place] | [address] | | | | | function | [address] | [place], [place] | | | | | study | [place], [place] | [address] | | | | | Nonspecific | [address] | Phone: | | | | | (abnormal) | Phone: | [phone] | | | | | findings on | [phone] | Fax: | | | | | radiological | Fax: | [phone] | | | | | and other | [phone] | | | | | | examination | | | | | | | of biliary | | | | | | | tract | | | +--------+ + + + + + Encounter Details +--------+ + + + + | Date | Type | Department | Care Team | Description | +--------+ + + + + | 08/06/ | Orders Only | [facility] | [place], | Nonspecific abnormal | | 2012 | | GASTROENTEROLOGY | KEYANA [address] | results of liver | | | | [address] [place] | [place] [place] [address] | function study | | | | [address] [place], [place] | [place], [place] | (Primary Dx); | | | | [address] | [address] | Nonspecific | | | | [phone] | | (abnormal) findings | | | | | | on radiological and | | | | | | other examination of | | | | | | biliary tract | +--------+ + + + + Social [...] [place] | | | | | | [address] | | | | | | [place] [address] | | | | | | [phone] | | | | | | | | +--------+ + + + + + + +--------+ + + | Name | Type | Priori | Associated Diagnoses | Order Schedule | | | | ty | | | + + +--------+ + + | Ambulatory referral | Outpatient | Routin | Nonspecific | Expected: 08/10/2013 | | to Gastroenterology | Referral | e | abnormal results of | (Approximate), | | | | | liver function study | Expires: 08/06/2014 | | | | | Nonspecific | | | | | | (abnormal) findings | | | | | | on radiological and | | | | | | other examination of | | | | | | biliary tract | | + + +--------+ + + documented as of this encounter Visit Diagnoses + + | Diagnosis | + + | Nonspecific abnormal results of liver function study - Primary | + + | Nonspecific (abnormal) findings on radiological and other examination of biliary tract | + + documented in this encounter"
--- OUTSIDE RECORDS SUMMARY | ~2019-10-28 | XMS | Encounter Summary ---
Demographics + + + | Address | [address] | | | [place] [address] | + + + | Home Phone [...] Team Providers + +------+ + | Care Bicycle Technician Name | Role | Phone | + +------+ + PCP | Unavailable | + +------+ + Encounter Details +--------+ + + + + | Date | Type | Department | Care Team | Description | +--------+ + + + + | 11/02/ | [facility] | [facility] | | | | 2007 | Encounter | MED CTR XRAY [address] | | | | | | [address] | | | | | | [place] [address] | | | | | | [phone] | | | +--------+ + + + [...] | | | | | [place] [address] | | | | | | [phone] | | | | | | | | +--------+ + + + + documented as of this encounter Visit Diagnoses Not on filedocumented in this encounter"
--- OUTSIDE RECORDS SUMMARY | ~2019-10-28 | XMS | Encounter Summary ---
Demographics + + + | Address | [address] | | | [place] [address] | + + + | Home Phone | | + + + | Preferred Language | Unknown | + + + | Marital Status | Single | + + + | Taoism Affiliation | 1013 | + + + | Race | Unknown | + + + | Ethnic Group | Unknown | + + + Author + + + | Author | [facility] | | | and [place] | + + + | Organization | [facility] | | [...] Team Providers + +------+ + | Care Medical Science Liaison Name | Role | Phone | + +------+ + | Freddie Woodward MD | PCP | | + +------+ + Encounter Details +--------+ + + + + | Date | Type | Department | Care Team | Description | +--------+ + + + + | 02/18/ | Hospital | [facility] | Conversion | Pain | | 2014 | Encounter | CONVERSION [address] | Transaction, | | | | [address] | Provider Unknown | | | | | [place], [place] | [phone] | | | | | [address] | (Fax) | | | | | [phone] | | | +--------+ + + + [...] D | | | | | | [place] [address] | | | | | | [phone] | | | | | | | | +--------+ + + + + documented as of this encounter Procedures + +--------+ + + + | Procedure Name | Priori | Date/Time | Associated Diagnosis | Comments | | | ty | | | | + +--------+ + + + | MRI BRAIN W WO | Routin | 05/29/2012 | | Results for this | | CONTRAST | e | 3:15 AM | | procedure are in the | | | | PDT | | results section. | + +--------+ + + + documented in this encounter Results MRI Brain w wo Contrast (05/29/2012 3:15 AM PDT) + + | Specimen | + + | | + + + + + | Narrative | Performed At | + + + | This is a non-reportable procedure without a radiologist report and | | | is used for image storage only | | + + + + + | Procedure Note | + + | Darrin He Andrei - 07/17/2019 6:42 PM PDT This is a non-reportable procedure | | without a radiologist report and isused for image storage only | + + documented in this encounter Visit Diagnoses + + | Diagnosis | + + | Pain Generalized pain | + + documented in this encounter"
--- OUTSIDE RECORDS SUMMARY | ~2019-10-28 | XMS | Encounter Summary ---
Demographics + + + | Address | [address] | | | [place] [address] | + + + | Home Phone | | + + + | Preferred Language | Unknown | + + + | Marital Status | Single | + + + | Religion Affiliation | 1013 | + + + | Race | Unknown | + + + | Ethnic Group | Unknown | + + + Author + + + | Author | [facility] | | | and [place] | + + + | Organization | [facility] | | | [...] Team Providers + +------+ + | Care Guest Service Agent Name | Role | Phone | + +------+ + | Freddie Woodward MD | PCP | | + +------+ + Encounter Details +--------+ + + + + | Date | Type | Department | Care Team | Description | +--------+ + + + + | 10/12/ | Hospital | [facility] | Conversion | | | 2013 | Encounter | [facility] | Transaction, | | | | | OUTPATIENT | Provider Unknown | | | | | PROCEDURES [address] | | | | [address] | (Fax) | | | | | [place], [place] | | | | | | [address] | | | | | | [phone] | | | +--------+ + + + [...] | | | | | [place] [address] | | | | | | [phone] | | | | | | | | +--------+ + + + + documented as of this encounter Visit Diagnoses Not on filedocumented in this encounter"
--- OUTSIDE RECORDS SUMMARY | ~2019-10-28 | XMS | Encounter Summary ---
Demographics + + + | Address | [address] | | | [place] [address] | + + + | Home Phone | | + + + | Preferred Language | Unknown | + + + | Marital Status | Single | + + + | Mandaen Affiliation | 1013 | + + + | Race | Unknown | + + + | Ethnic Group | Unknown | + + + Author + + + | Author | [facility] | | | and [place] | + + + | Organization | [facility] | | | [...] Team Providers + +------+ + | Care Saddle And Harness Maker Name | Role | Phone | + +------+ + | Freddie Woodward MD | PCP | | + +------+ + Encounter Details +--------+ + + + + | Date | Type | Department | Care Team | Description | +--------+ + + + + | 04/26/ | Hospital | [facility] | Conversion | Multiple sclerosis | | 2017 | Encounter | [facility] | Transaction, | ([facility]) | | | | [address] | Provider Unknown | | | | | [place], [place] | | | | | | [address] | (Fax) | | | | | [phone] | | | +--------+ + + + [...] | | | | | | [place] [address] | | | | | | [phone] | | | | | | | [...]
--- OUTSIDE RECORDS SUMMARY | ~2019-10-28 | XMS | Encounter Summary ---
Demographics + + + | Address | [address] | | | [place] [address] | + + + | Home Phone [...] + + + | Author | [facility] | | | and [place] | + + + | Organization | [facility] | | | [...] Team Providers + +------+ + | Care Research Dairy Farm Supervisor Name | Role | Phone | + +------+ + PCP | Unavailable | + +------+ + Encounter Details +--------+ + + + + | Date | Type | Department | Care Team | Description | +--------+ + + + + | 03/25/ | [facility] | ROULA DARNELL | | | | 1999 - | Encounter | MED CTR ICU [address] | | | | | | [place], | | | | 03/26/ | | [place] [address] | | | | 1999 | | [phone] | | | +--------+ + + + [...] | 2019 | Visit | | [address] | | | | | | [address] | | | | | | [place] [address] | | | | | | [phone] | | | | | | | | +--------+ + + + + documented as of this encounter Visit Diagnoses Not on filedocumented in this encounter"
--- OUTSIDE RECORDS SUMMARY | ~2019-10-28 | XMS | Encounter Summary ---
Demographics + + + | Address | [address] | | | [place] [address] | + + + | Home Phone | | + + + | Preferred Language | Unknown | + + + | Marital Status | Single | + + + | Mosque Affiliation | 1013 | + + + | Race | Unknown | + + + | Ethnic Group | Unknown | + + + Author + + + | Author | [facility] | | | and [place] | + + + | Organization | [facility] | | | [...] Team Providers + +------+ + | Care Hydrographic Surveyor Name | Role | Phone | + +------+ + PCP | Unavailable | + +------+ + Encounter Details +--------+ + + + + | Date | Type | Department | Care Team | Description | +--------+ + + + + | 03/10/ | Hospital | [facility] | Kaz Martin MD | | | 2006 | Encounter | MED CTR GENERIC OP | [address], [place] | | | | | CONV DEPT [address] | [address] [place], [place] | | | | | [place], | [address] | | | | | [place] [address] | | | | | | [phone] | | | +--------+ + + + [...] | | | | | | [address] | | | | | | [place] [address] | | | | | | [phone] | | | | | | | | +--------+ + + + + documented as of this encounter Visit Diagnoses Not on filedocumented in this encounter"
--- OUTSIDE RECORDS SUMMARY | ~2019-10-28 | XMS | Encounter Summary ---
Demographics + + + | Address | [address] | | | [place] [address] | + + + | Home Phone [...] Team Providers + +------+ + | Care Asphalt Heater Tender Name | Role | Phone | + [...] | [address] | DRIVE [facility] D | | | | | [place], [place] | [place] [address] | | | | | [address] | [phone] | | | | | [phone] | | | +--------+ + + + [...] D | | | | | | [place] [address] | | | | | | [phone] | | | | | | | | +--------+ + + + + documented as of this encounter Procedures + +--------+ + + + | Procedure Name | Priori | Date/Time | Associated Diagnosis | Comments | | | ty | | | | + +--------+ + + + | REFERENCE TEST TO | Routin | 10/12/2014 | | Results for this | | [facility] | e | 12:00 AM | | procedure are in the | | | | PST | | results section. | + +--------+ + + + documented in this encounter Results Reference Test to [facility] (10/12/2014 12:00 AM PST) + + | Specimen | + + | | + + + + + | Narrative | Performed At | + + + | STRATIFY JCV (TM) AB W/RFLX JCV ANTIBODY | EXTERNAL LAB | | NEGATIVE (INDEX VALUE: 0.18) INTERPRETATION | | | INDETERMINATE: LOW LEVEL REACTIVITY DETECTED, | | | SEE INHIBITION ASSAY RESULT TO | | | FOLLOW FOR THE FINAL | | | ANTIBODY RESULT. | | | POSITIVE: ANTIBODIES TO ARMANDO VIRUS (JCV) | | | DETECTED INDICATING THE | | | PATIENT HAS BEEN | | | EXPOSED TO JCV AT AN | | | UNDETERMINED TIME. NEGATIVE: | | | ANTIBODIES TO JCV NOT DETECTED. THE STRATIFY JCV ANTIBODY TEST IS | | | AN ENZYME-LINKED IMMUNOSORBENT ASSAY (ALHAJI) DESIGNED TO DETECT JCV | | | ANTIBODIES TO HELP IDENTIFY INDIVIDUALS WHO HAVE BEEN EXPOSED TO | | | THE VIRUS. SAMPLES WITH LOW LEVEL REACTIVITY IN THE DETECTION ASSAYS | | | ARE RETESTED IN A CONFIRMATION (INHIBITION) ASSAY TO CONFIRM | | | PRESENCE OR ABSENCE OF JCV-SPECIFIC ANTIBODIES. Specimen: | | | [id number] Requisition: [id number] | | + + + + +---------+ + + | Performing | Address | City/State/Zipcode | Phone Number | | Organization | | | | + +---------+ + + | EXTERNAL LAB | | | | + +---------+ + + documented in this encounter Visit Diagnoses Not on filedocumented in this encounter"
--- OUTSIDE RECORDS SUMMARY | ~2019-10-28 | XMS | Encounter Summary ---
Demographics + + + | Address | [address] | | | [place] [address] | + + + | Home Phone | | + + + | Preferred Language | Unknown | + + + | Marital Status | Single | + + + | Taoist Affiliation | 1013 | + + + [...] Team Providers + +------+ + | Care Integration Project Manager Name | Role | Phone | + +------+ + | Freddie Woodward MD | PCP | | + +------+ + Encounter Details +--------+ + + + + | Date | Type | Department | Care Team | Description | +--------+ + + + + | 04/06/ | Orders Only | [facility] | Denis Stokes, | | | 2015 | | NEUROLOGY [address] | PA-C [address] | | | | [address] | DRIVE [facility] D | | | | | [place], [place] | [place] [address] | | | | | [address] | [phone] | | | | | [phone] | | | +--------+ + + + [...] D | | | | | | [place] [address] | | | | | | [phone] | | | | | | | | +--------+ + + + + documented as of this encounter Procedures + +--------+ + + + | Procedure Name | Priori | Date/Time | Associated Diagnosis | Comments | | | ty | | | | + +--------+ + + + | ARMANDO VIRUS AB W/INDEX, | Routin | 04/06/2015 | | Results for this | | QUAL, REFLEX INHIB | e | 2:00 PM | | procedure are in the | | ASSAY | | PDT | | results section. | + +--------+ + + + documented in this encounter Results ARMANDO Virus Antbody W/Index, Qual, Reflex (04/06/2015 2:00 PM PDT) + + + + + + | Component | Value | Ref Range | Performed | Pathologist | | | | | At | Signature | + + + + + + | Index Value | 0.18Comment: Testing | | EXTERNAL | | | | performed at [facility] | | LAB | | | | [place] | | | | | | Diagnostics, [id number] | | | | | | [address] | | | | | | [place] [address] | | | | + + + [...] | | | | | performed at [facility] | | | | | | [place] | | | | | | Diagnostics, [address] | | | | | | [address] | | | | | | [place] [address] | | | | + + + [...]
--- OUTSIDE RECORDS SUMMARY | ~2019-10-28 | XMS | Encounter Summary ---
Demographics + + + | Address | [address] | | | [place] [address] | + + + | Home Phone [...] Team Providers + +------+ + | Care Blower Blast Furnace Name | Role | Phone | + +------+ + PCP | Unavailable | + +------+ + Encounter Details +--------+ + + + + | Date | Type | Department | Care Team | Description | +--------+ + + + + | 08/10/ | [facility] | [facility] | | | | 1998 | Encounter | MED CTR LABORATORY | | | | | | [address] | | | | | | [place] | | | | | | [address] | | | | | | [phone] | | | +--------+ + + + [...] | | | | | [place] [address] | | | | | | [phone] | | | | | | | | +--------+ + + + + documented as of this encounter Visit Diagnoses Not on filedocumented in this encounter"
--- OUTSIDE RECORDS SUMMARY | ~2019-10-28 | XMS | Encounter Summary ---
Demographics + + + | Address | [address] | | | [place] [address] | + + + | Home Phone | | + + + | Preferred Language | Unknown | + + + | Marital Status | Single | + + + | Evangelical Affiliation | 1013 | + + + | Race | Unknown | + + + | Ethnic Group | Unknown | + + + Author + + + | Author | [facility] | | | and [place] | + + + | Organization | [facility] | | | [...] Providers + +------+ + | Care Medical Certification Specialist Name | Role | Phone | + +------+ + | Susan Ahn MD | PCP | | + +------+ + Encounter Details +--------+ + + + + | Date | Type | Department | Care Team | Description | +--------+ + + + + | 05/26/ | Hospital | [facility] | Conversion | | | 2012 | Encounter | [facility] | Transaction, | | | | | OUTPATIENT | Provider Unknown | | | | | PROCEDURES [address] | | | [address] | (Fax) | | | | | [place], [place] | | | | | | [address] | | | | | | [phone] | | | +--------+ + + + [...] | | | | | [place] [address] | | | | | | [phone] | | | | | | | | +--------+ + + + + documented as of this encounter Visit Diagnoses Not on filedocumented in this encounter"
--- OUTSIDE RECORDS SUMMARY | ~2019-10-28 | XMS | Encounter Summary ---
Demographics + + + | Address | [address] | | | [place] [address] | + + + | Home Phone | | + + + | Preferred Language | Unknown | + + + | Marital Status | Single | + + + | Rastafarian Affiliation | 1013 | + + + | Race | Unknown | + + + | Ethnic Group | Unknown | + + + Author + + + | Author | [facility] | | | and [place] | + + + | Organization | [facility] | | | [...] Team Providers + +------+ + | Care Floorworker Lasting Name | Role | Phone | + [...] [address] | | | | | [address] | D | [place], | | | | | [place] | [place], | [place] [address] | | | | | INJECTION, 1 | [place] [address] | Phone: | | | | | [place] | Phone: | [phone] | | | | | CHEMOTHER, | [phone] | Fax: | | | | | IV INFUSION, | Fax: | [phone] | | | | | 1 HR | [phone] | | + +--------+ + + + + Encounter Details +--------+ + + + + | Date | Type | Department | Care Team | Description | +--------+ + + + + | 09/01/ | Procedure | [facility] | | MULTIPLE SCLEROSIS | | 2019 | visit | NEUROLOGY [address] | | (Primary Dx) | | | | [address] | | | | | | [place] | | | | | | [address] | | | | | | [phone] | | | +--------+ + + + [...] + + + | Blood Pressure | 134/86 | 09/01/2019 1:59 PM | | | | | PDT | | + + + + + | Pulse | 89 | 09/01/2019 1:59 PM | | | | | PDT | | + + + + + | Temperature | 36.5 C (97.7 F) | 09/01/2019 1:59 PM | | | | | PDT | | + + + + + | Respiratory Rate | - | - | | + + + + + | Oxygen Saturation | 97% | 09/01/2019 1:59 PM | | | | | PDT [...] encounter Progress Notes Beatris Tejeda RN - 09/01/2019 1:45 PM [id number] Pt presents for IV Tysabri infusion. Pt i dentification verified and patient taken to Infusion [place] [facility]. Informed consent was signed and the Touch Program questionaire completed. There are no contraindications to administration o f Tysabri. 1400 IV access was obtained without difficulty in the left forearm using a 24 GA 0.75 IV ca theter. Pt tolerated well. 1404 Medication is IV Tysabri 300mg/15mL diluted in 100mL of 0.9% Normal Saline immediately prior to infusion. The infusion was started as an IVPB at a rate of 115 mL/hr utilizing an Ecochlor IV pump. Primary solution is 100 mL NS. 1504 Tysabri infusion completed. Line flushed and IV Saline locked. Pt resting comfortably for post-infusion observation period. 1604 Observation period completed. No reaction observed, pt [...] [address] | | | | | | [employer] [address] | | | | | | [place] [address] | | | | | | [phone] | | | | | | | [...] 300 mg in | New Bag | 09/02/20 | 300 mg | 115 | Left Arm | | sodium chloride 0.9% 100 mL IVPB | | 19 2:04 | | mL/hr | | | 300 mg, Intravenous, Administer | | PM PDT | | | | | over 1 Hours, ONCE, 09/01/19 | | | | | | | [...] chloride 0.9% (NS) | New Bag | 09/01/20 | 100 mLs | 100 | Left Arm | | infusion at 100 mL/hr, | | 19 2:04 | | mL/hr | | | Intravenous, FIXED VOLUME (see | | PM PDT | | | | | admin instruction), Starting Tue | | | | | | | 09/01/19 at 1430 | | | | | | + +---------+ +---------+-------+ + +---+---+ | | | +---+---+ documented in this encounter"
--- OUTSIDE RECORDS SUMMARY | ~2019-10-28 | XMS | Encounter Summary ---
Demographics + + + | Address | [address] | | | [place] [address] | + + + | Home Phone | | + + + | Preferred Language | Unknown | + + + | Marital Status | Single | + + + | Mormon Affiliation | 1013 | + + + | Race | Unknown | + + + | Ethnic Group | Unknown | + + + Author + + + | Author | [facility] | | | and [place] | + + + | Organization | [facility] | | | and [...] Team Providers + +------+ + | Care Crew Boat Operator Name | Role | Phone | [...] Specialty | Gastroenterol | Diagnoses | | [facility] | | | Services | ogy | Nonspecific | [place], | GASTROENTEROL | | | Required | | abnormal | [place], | OGY [address]21 | | | | | results of | [address] | | | | | liver | [place], [place] | [place] [address] | | | | | function | [address] [place] | [place], [place] | | | | | study | [place], [place] | [address] | | | | | Nonspecific | [address] | Phone: | | | | | (abnormal) | Phone: | [phone] | | | | | findings on | [phone] | Fax: | | | | | radiological | Fax: | [phone] | | | | | and other | [phone] | | | | | | examination [...] | [address] [place] | [place], [place] [address] | function study | | | | [address] [place], [place] | [place], [place] | (Primary Dx); | | | | [address] | [address] | Nonspecific | | | | [phone] | | (abnormal) findings | | | [...] [address] | | | | | | [address] | | | | | | [place] [address] | | | | | | [phone] | | | | | | | [...]
--- OUTSIDE RECORDS SUMMARY | ~2019-10-28 | XMS | Encounter Summary ---
Demographics + + + | Address | [address] | | | [place] [address] | + + + | Home Phone [...] Providers + +------+ + | Care Hoop Cutter Name | Role | Phone | + +------+ + | Freddie Woodward MD | PCP | | + +------+ + Encounter Details +--------+ + + + + | Date | Type | Department | Care Team | Description | +--------+ + + + + | 06/23/ | Hospital | [facility] | Conversion | | | 2012 | Encounter | [facility] | Transaction, | | | | | OUTPATIENT | Provider Unknown | | | | | PROCEDURES [address] | | | [address] | (Fax) | | | | | [place], [place] | | | | | | [address] | | | | | | [phone] | | | +--------+ + + + [...] encounter Progress Notes Denis Stokes PA - 06/23/2013 1:12 PM PDTFormatting of this note might be different fro m the original. Progress Notes by Denis Stokes PA-C at 06/23/13 1312 Author: Denis Stokes PA-C Service: (none) Author Type: Physician Hvac Mechanical Engineer - Certified Filed: 06/23/13 0584 Date of Service: 06/23/131311 Status: Signed Metal Spinner: Denis Stokes PA-C (Physician Hvac Mechanical Engineer - Certified) The patient was seen today at 1:10 pm in my office prior to her Tysabri infusion at the Out patient procedures. She denies any new neurological symptoms or changes. No new medications. Specifically no immunosuppressant medications or any medical condition that would affect her immune system. Specifically no HIV, AIDs, Leukemia, Lymphoma or any other condition. We also discussed that she will take her CD with previous brain MRI at [facility] to [facility] radiology so that they may scan her images and radiologist to do formal comparison. documented in this e ncounter Plan of [...] | | | | | [place] [address] | | | | | | [phone] | | | | | | | | +--------+ + + + + documented as of this encounter Visit Diagnoses Not on filedocumented in this encounter"
--- OUTSIDE RECORDS SUMMARY | ~2019-10-28 | XMS | Encounter Summary ---
Demographics + + + | Address | [address] | | | [place] [address] | + + + | Home Phone | | + + + | Preferred Language | Unknown | + + + | Marital Status | Single | + + + | Congregational Affiliation | 1013 | + + + | Race | Unknown | + + + | Ethnic Group | Unknown | + + + Author + + + | Author | [facility] | | | and [place] | + + + | Organization | [facility] | | | [...] Team Providers + +------+ + | Care Mail Technician Name | Role | Phone | + +------+ + PCP | Unavailable | + +------+ + Encounter Details +--------+ + + + + | Date | Type | Department | Care Team | Description | +--------+ + + + + | 03/10/ | Hospital | [facility] | Kaz Martin MD | | | 2006 | Encounter | MED CTR GENERIC OP | [address], [place] | | | | | CONV DEPT [address] | [address] [place], [place] | | | | | [place], | [address] | | | | | [place] [address] | | | | | | [phone] | | | +--------+ + + + [...] 01/26/ | Office | Neurology | Denis tSokes, | | | 2019 | Visit | | [address] | | | | | | [place] | | | | | | [place] [address] | | | | | | [phone] | | | | | | | | +--------+ + + + + documented as of this encounter Visit Diagnoses Not on filedocumented in this encounter"
--- OUTSIDE RECORDS SUMMARY | ~2019-10-28 | XMS | Encounter Summary ---
Demographics + + + | Address | [address] | | | [place] [address] | + + + | Home Phone [...] Team Providers + +------+ + | Care Comptometrist Name | Role | Phone | + +------+ + | Freddie Woodward MD | PCP | | + +------+ + Encounter Details +--------+ + + + + | Date | Type | Department | Care Team | Description | +--------+ + + + + | 06/22/ | Hospital | [facility] | Conversion | | | 2013 | Encounter | [facility] | Transaction, | | | | | OUTPATIENT | Provider Unknown | | | | | PROCEDURES [address] | | | | [address] | (Fax) | | | | | [place], [place] | | | | | | [address] | | | | | | [phone] | | | +--------+ + + + [...] | | | | | [place] [address] | | | | | | [phone] | | | | | | | | +--------+ + + + + documented as of this encounter Visit Diagnoses Not on filedocumented in this encounter"
--- OUTSIDE RECORDS SUMMARY | ~2019-10-28 | XMS | Encounter Summary ---
Demographics + + + | Address | [address] | | | [place] [address] | + + + | Home Phone [...] Team Providers + +------+ + | Care Air Brake Worker Name | Role | Phone | + +------+ + | Freddie Woodward MD | PCP | | + +------+ + Encounter Details +--------+ + + + + | Date | Type | Department | Care Team | Description | +--------+ + + + + | 05/09/ | Orders Only | [facility] | Denis Stokes, | | | 2016 | | [address] | [address] | | | | | [place], [place] | [address] | | | | | [address] | [place] [address] | | | | | [phone] | [phone] | | | | | | | [...] | | | | | [place] [address] | | | | | | [phone] | | | | | | | | +--------+ + + + + documented as of this encounter Procedures + +--------+ + + + | Procedure Name | Priori | Date/Time | Associated Diagnosis | Comments | | | ty | | | | + +--------+ + + + | ARMANDO VIRUS AB W/INDEX, | Routin | 05/09/2016 | | Results for this | | QUAL, REFLEX INHIB | e | 1:39 PM | | procedure are in the | | ASSAY | | PDT | | results section. | + +--------+ + + + documented in this encounter Results ARMANDO Virus Antbody W/Index, Qual, Reflex (05/09/2016 1:39 PM PDT) + + + + + + | Component | Value | Ref Range | Performed | Pathologist | | | | | At | Signature | + + + + + + | Index Value | 0.14Comment: Testing | | EXTERNAL | | | | performed at [facility] | | LAB | | | | [place], [address] | | | | | | [place] | | | | | | [address] | | | | + + + [...] | | | | | | DETECTED, SEE | | | | | | | | | | | | INHIBITION ASSAY RESULT | | | | | | TO FOLLOW | | | | | | FOR THE | | | | | | FINAL ANTIBODY RESULT. | | | | | | POSITIVE: | | | | | | ANTIBODIES TO ARMANDO VIRUS | | | | | | (JCV) DETECTED | | | | | | INDICATING | | | | | | THE PATIENT HAS BEEN | | | | | | EXPOSED | | | | | | TO JCV AT AN | | | | | | UNDETERMINED TIME.THE | | | | | | STRATIFY [...] | | | | | performed at [facility] | | | | | | [facility], [address] | | | [address], [place] | | | | | | [address] | | | | + + + [...]
--- OUTSIDE RECORDS SUMMARY | ~2019-10-28 | XMS | Encounter Summary ---
Demographics + + + | Address | [address] | | | [place] [address] | + + + | Home Phone | | + + + | Preferred Language | Unknown | + + + | Marital Status | Single | + + + | Baptist Affiliation | 1013 | + + + | Race | Unknown | + + + | Ethnic Group | Unknown | + + + Author + + + | Author | [facility] | | | and [place] | + + + | Organization | [facility] | | [...] Team Providers + +------+ + | Care Fundraising Sale Representative Name | Role | Phone | + +------+ + PCP | Unavailable | + +------+ + Encounter Details +--------+ + + + + | Date | Type | Department | Care Team | Description | +--------+ + + + + | 09/06/ | [facility] | [facility] | | | | 1995 - | Encounter | MED CTR GENERIC IP | | | | | | CONV DEPT [address] | | | | 09/08/ | | [address], | | | | 1997 | | [place] [address] | | | | | | [phone] | | | +--------+ + + + [...] | | | | | [place] [address] | | | | | | [phone] | | | | | | | | +--------+ + + + + documented as of this encounter Visit Diagnoses Not on filedocumented in this encounter"
--- OUTSIDE RECORDS SUMMARY | ~2019-10-28 | XMS | Encounter Summary ---
Demographics + + + | Address | [address] | | | [place] [address] | + + + | Home Phone [...] + + + | Author | [facility] | | | and [place] | + + + | Organization | [facility] | | [...] Team Providers + +------+ + | Care Laundry Washer Name | Role | Phone | + +------+ + | Freddie Woodward MD | PCP | | + +------+ + Encounter Details +--------+ + + + + | Date | Type | Department | Care Team | Description | +--------+ + + + + | 03/09/ | Hospital | [facility] | Conversion | | | 2014 | Encounter | [facility] | Transaction, | | | | | OUTPATIENT | Provider Unknown | | | | | PROCEDURES [address] | | [address] | (Fax) | | | | | [place], [place] | | | | | | [address] | | | | | | [phone] | | | +--------+ + + + [...] | | | | | [place] [address] | | | | | | [phone] | | | | | | | | +--------+ + + + + documented as of this encounter Visit Diagnoses Not on filedocumented in this encounter"
--- OUTSIDE RECORDS SUMMARY | ~2019-10-28 | XMS | Encounter Summary ---
Demographics + + + | Address | [address] | | | [place] [address] | + + + | Home Phone | | + + + | Preferred Language | Unknown | + + + | Marital Status | Single | + + + | Gnosticism Affiliation | 1013 | + + + | Race | Unknown | + + + | Ethnic Group | Unknown | + + + Author + + + | Author | [facility] | | | and [place] | + + + | Organization | [facility] | | | [...] Team Providers + +------+ + | Care Nursing Assistants Teacher Name | Role | Phone | + +------+ + | Freddie Woodward MD | PCP | | + +------+ + Encounter Details +--------+ + + + + | Date | Type | Department | Care Team | Description | +--------+ + + + + | 10/13/ | Hospital | [facility] | Conversion | | | 2012 | Encounter | [facility] | Transaction, | | | | | OUTPATIENT | Provider Unknown | | | | | PROCEDURES [address] | (Fax) | | | | | [place], [place] | | | | | | [address] | | | | | | [phone] | | | +--------+ + + + [...] | | | | | [place] [address] | | | | | | [phone] | | | | | | | | +--------+ + + + + documented as of this encounter Visit Diagnoses Not on filedocumented in this encounter"
--- OUTSIDE RECORDS SUMMARY | ~2019-10-28 | XMS | Encounter Summary ---
Demographics + + + | Address | [address] | | | [place] [address] | + + + | Home Phone | | + + + | Preferred Language | Unknown | + + + | Marital Status | Single | + + + | Restoration Affiliation | 1013 | + + + | Race | Unknown | + + + | Ethnic Group | Unknown | + + + Author + + + | Author | [facility] | | | and [place] | + + + | Organization | [facility] | | | [...] Team Providers + +------+ + | Care Antisubmarine Weapons Officer Name | Role | Phone | + +------+ + | Freddie Woodward MD | PCP | | + +------+ + Encounter Details +--------+ + + + + | Date | Type | Department | Care Team | Description | +--------+ + + + + | 01/31/ | Hospital | [facility] | Conversion | Multiple sclerosis | | 2016 | Encounter | [facility] | Transaction, | ([facility]) | | | | [address] | Provider Unknown | | | | | [place], [place] | | | | | | [address] | (Fax) | | | | | [phone] | | | +--------+ + + + [...] + + + | Blood Pressure | - | - | | + [...] + + + + | Weight | 91.2 kg (201 lb) | 02/01/2016 10:54 AM | | | | | PST | | + + + + + | Height | - | - | | + + + + + | Body Mass Index | 36.76 | 01/04/2016 3:27 PM | | | | | PST | | + + + + + documented in this encounter Medications at Time of Discharge [...] D | | | | | | [place] [address] | | | | | | [phone] | | | | | | | | +--------+ + + + + documented as of this encounter Procedures + +--------+ + + + | Procedure Name | Priori | Date/Time | Associated Diagnosis | Comments | | | ty | | | | + +--------+ + + + | MRI BRAIN W WO | Routin | 02/01/2016 | | Results for this | | CONTRAST | e | 11:21 AM | | procedure are in the | | | | PST | | results section. | + +--------+ + + + documented in this encounter Results MRI Brain w wo Contrast (02/01/2016 11:21 AM PST) + + | Specimen | + + | | + + + + + | Impressions | Performed At | + + + | 1. There is no interval change in numerous white matter lesions | | | throughout the brain parenchyma. There are no new lesions. Findings | | | suggest stability of multiple sclerosis. 2. Imaging findings | | | suggestive of previous chronic optic neuritis. Electronically | | | signed by Adeel Collado MD on 02/01/2016 11:48 AM | | + + + + + + | Narrative | Performed At | + + + | [place] 1965 MRI BRAIN W WO CONTRAST 02/01/2016 11:21 AM | | | HISTORY: Underlying history of multiple sclerosis, progression of | | | disease evaluation, tingling in the hand, fingers with spasms of the | | | lower extremity COMPARISON: MRI, 06/05/2013 TECHNIQUE: Imaging | | | was performed on a 1.5 Gisselle MRI system. Multiplanar sequences | | | according to a standard department protocol were acquired with and | | | without contrast. Contrast: MultiHance. Dose: 18 mL. FINDINGS: | | | There is no evidence of acute ischemia. No midline shift is noted. The | | | ventricular system is normal. No uncal or tonsillar herniation is | | | present. There is no intra-axial mass or extra-axial fluid. The major | | | intracranial vessels demonstrate normal T2 flow voids. On | | | gradient imaging, no abnormal susceptibility artifact is demonstrated. | | | The bone marrow demonstrates normal signal intensity. The pituitary | | | gland is normal. The craniocervical junction is maintained. There are | | | multifocal punctate areas of hyperintense T2 signal along the | | | subcortical, deep and periventricular white matter. The number of the | | | white matter lesions is stable. Previously noted white matter lesions | | | are unchanged in size. The pituitary gland is normal. The | | | craniocervical junction is maintained. The brainstem shows normal | | | volume and signal. There appears to be subtle increased signal | | | intensity of the left optic tract with increased signal and slight | | | decreased volume of the left aspect of the optic chiasm. | | | Hyperintense T2 signal is noted of the right optic nerve. There also | | | is a suggestion of mild increased signal intensity of the left optic | | | nerve. The extraocular muscles are symmetric and normal in size. | | | No inflammation is noted in the orbits. Meckel's cave demonstrates | | | normal signal intensity. Following gadolinium administration, no | | | parenchymal, meningeal or dural enhancement is present. The dural | | | venous sinuses are normally opacified. The mastoid air cells are well | | | aerated. The inner ear structures are normal. The orbits and globes | | | are normal. The paranasal sinuses are clear. | | + + + + + | Procedure Note | + + | Neri, Rad Conversion - 07/16/2019 7:13 AM PDT [place]MRI BRAIN W WO | | CONTRAST02/01/2016 11:21 AM HISTORY: Underlying history of multiple sclerosis, progression | | of disease evaluation, tingling in the hand, fingers with spasms of the lower extremity | | COMPARISON: MRI, 06/05/2013 TECHNIQUE:Imaging was performed on a 1.5 Gisselle MRI system. | | Multiplanar sequences according to a standard department protocol were acquired with and | | without contrast.Contrast: MultiHance. Dose: 18 mL. FINDINGS: There is no evidence of | | acute ischemia. No midline shift is noted. The ventricular system is normal. No uncal or | | tonsillar herniation is present. There is no intra-axial mass or extra-axial fluid. The | | major intracranial vessels demonstrate normal T2 flow voids. On gradient imaging, no | | abnormal susceptibility artifact is demonstrated. The bone marrow demonstrates normal | | signal intensity. The pituitary gland is normal. The craniocervical junction is | | maintained. There are multifocal punctate areas of hyperintense T2 signal along the | | subcortical, deep and periventricular white matter. The number of the white matter | | lesions is stable. Previously noted white matter lesions are unchanged in size. The | | pituitary gland is normal. The craniocervical junction is maintained. The brainstem | | shows normal volume and signal. There appears to be subtle increased signal intensity of | | the left optic tract with increased signal and slight decreased volume of the left | | aspect of the optic chiasm. Hyperintense T2 signal is noted of the right optic nerve. | | There also is a suggestion of mild increased signal intensity of the left optic nerve. | | The extraocular muscles are symmetric and normal in size. No inflammation is noted in | | the orbits. Meckel's cave demonstrates normal signal intensity. Following gadolinium | | administration, no parenchymal, meningeal or dural enhancement is present. The dural | | venous sinuses are normally opacified. The mastoid air cells are well aerated. The inner | | ear structures are normal. The orbits and globes are normal. The paranasal sinuses are | | clear. IMPRESSION: 1. There is no interval change in numerous white matter lesions | | throughout the brain parenchyma. There are no new lesions. Findings suggest stability of | | multiple sclerosis.2. Imaging findings suggestive of previous chronic optic neuritis. | | | |1. There is no interval change in numerous white matter lesions throughout the brain paren chyma. There are no new lesions. Findings suggest stability of multiple sclerosis. | |2. Imaging findings suggestive of previous chronic optic neuritis. | | | | | + + documented in this encounter Visit Diagnoses + + | Diagnosis | + + | Multiple sclerosis (HCC) Multiple sclerosis | + + documented in this encounter"
--- OUTSIDE RECORDS SUMMARY | ~2019-10-28 | XMS | Encounter Summary ---
Demographics + + + | Address | [address] | | | [place] [address] | + + + | Home Phone | | + + + | Preferred Language | Unknown | + + + | Marital Status | Single | + + + | Confucianism Affiliation | 1013 | + + + [...] Team Providers + +------+ + | Care Filling Hauler Name | Role | Phone | + +------+ + PCP | Unavailable | + +------+ + Encounter Details +--------+ + + + + | Date | Type | Department | Care Team | Description | +--------+ + + + + | 02/18/ | [facility] | [facility] | | | | 2006 | Encounter | MED CTR EMERGENCY | | | | | | CENTER [address] | | | | | | [place], [place] | | | | | | [address] | | | | | | [phone] | | | +--------+ + + + [...] | | | | | [place] [address] | | | | | | [phone] | | | | | | | | +--------+ + + + + documented as of this encounter Visit Diagnoses Not on filedocumented in this encounter"
--- OUTSIDE RECORDS SUMMARY | ~2019-10-28 | XMS | Encounter Summary ---
Demographics + + + | Address | [address] | | | [place] [address] | + + + | Home Phone [...] Team Providers + +------+ + | Care Associate Manager Affiliate Marketing Name | Role | Phone | + +------+ + | Freddie Woodward MD | PCP | | + +------+ + Encounter Details +--------+ + + + + | Date | Type | Department | Care Team | Description | +--------+ + + + + | 08/17/ | Hospital | [facility] | Conversion | | | 2013 | Encounter | [facility] | Transaction, | | | | | OUTPATIENT | Provider Unknown | | | | | PROCEDURES [address] | | [address] | (Fax) | | | | | [place], [place] | | | | | | [address] | | | | | | [phone] | | | +--------+ + + + [...] | | | | | [place] [address] | | | | | | [phone] | | | | | | | | +--------+ + + + + documented as of this encounter Visit Diagnoses Not on filedocumented in this encounter"
--- OUTSIDE RECORDS SUMMARY | ~2019-10-28 | XMS | Encounter Summary ---
Demographics + + + | Address | [address] | | | [place] [address] | + + + | Home Phone [...] Author + + + | Author | [facility] | | | and [place] | + + + | Organization | [facility] | | | [...] Team Providers + +------+ + | Care Bilingual Elementary School Teacher Name | Role | Phone | + +------+ + PCP | Unavailable | + +------+ + Encounter Details +--------+ + + + + | Date | Type | Department | Care Team | Description | +--------+ + + + + | 08/15/ | [facility] | [facility] | | | | 1998 - | Encounter | MED CTR [facility] | | | | | | [facility] [address] | | | | [address] | | [address], | | | | 2000 | | [place] [address] | | | | | | [phone] | | | +--------+ + + + [...] | | | | | [place] [address] | | | | | | [phone] | | | | | | | | +--------+ + + + + documented as of this encounter Visit Diagnoses Not on filedocumented in this encounter"
--- OUTSIDE RECORDS SUMMARY | ~2019-10-28 | XMS | Encounter Summary ---
Demographics + + + | Address | [address] | | | [place] [address] | + + + | Home Phone [...] Team Providers + +------+ + | Care Clarity Developer Name | Role | Phone | + +------+ + PCP | Unavailable | + +------+ + Encounter Details +--------+ + + + + | Date | Type | Department | Care Team | Description | +--------+ + + + + | 10/15/ | Hospital | [facility] | [place], | | | 2006 | Encounter | MED CTR EMERGENCY | Lucio Plaza MD [address] | | | | | [address] | [address] | | | | | [place], [place] | [place] [address] | | | | | [address] | [phone] | | | | | [phone] | | | +--------+ + + + [...] | | | | | [place] [address] | | | | | | [phone] | | | | | | | | +--------+ + + + + documented as of this encounter Visit Diagnoses Not on filedocumented in this encounter"
--- OUTSIDE RECORDS SUMMARY | ~2019-10-28 | XMS | Encounter Summary ---
Demographics + + + | Address | [address] | | | [place] [address] | + + + | Home Phone | | + + + | Preferred Language | Unknown | + + + | Marital Status | Single | + + + | Buddhist Affiliation | 1013 | + + + | Race | Unknown | + + + | Ethnic Group | Unknown | + + + Author + + + | Author | [facility] | | | and [place] | + + + | Organization | [facility] | | | [...] Team Providers + +------+ + | Care Geotechnical Operating Engineer Name | Role | Phone | + +------+ + PCP | Unavailable | + +------+ + Encounter Details +--------+ + + + + | Date | Type | Department | Care Team | Description | +--------+ + + + + | 01/30/ | [facility] | [facility] | | | | 2000 | Encounter | MED CTR LABORATORY | | | | | | [address] | | | | | | [place] | | | | | | [address] | | | | | | [phone] | | | +--------+ + + + [...] | | | | | [place] [address] | | | | | | [phone] | | | | | | | | +--------+ + + + + documented as of this encounter Visit Diagnoses Not on filedocumented in this encounter"
--- OUTSIDE RECORDS SUMMARY | ~2019-10-28 | XMS | Encounter Summary ---
Demographics + + + | Address | [address] | | | [place] [address] | + + + | Home Phone [...] Team Providers + +------+ + | Care Residential Interior Designer Name | Role | Phone | + [...] | SR | | | | | [phone] | | | +--------+ + + + [...] Leon | | | | | | [place] [address] | | | | | | [phone] | | | | | | | [...]
--- OUTSIDE RECORDS SUMMARY | ~2019-10-28 | XMS | Encounter Summary ---
Demographics + + + | Address | [address] | | | [place] [address] | + + + | Home Phone | | + + + | Preferred Language | Unknown | + + + | Marital Status | Single | + + + | Spiritism Affiliation | 1013 | + + + | Race | Unknown | + + + | Ethnic Group | Unknown | + + + Author + + + | Author | [facility] | | | and [place] | + + + | Organization | [facility] | | [...] Providers + +------+ + | Care Medical Sales Specialist Name | Role | Phone | + +------+ + PCP | Unavailable | + +------+ + Encounter Details +--------+ + + + + | Date | Type | Department | Care Team | Description | +--------+ + + + + | 02/20/ | [facility] | [facility] | | | | 2006 | Encounter | MED CTR XRAY [address] | | | | | [address] | | | | | | [place] [address] | | | | | | [phone] | | | +--------+ + + + [...] | | | | | [place] [address] | | | | | | [phone] | | | | | | | | +--------+ + + + + documented as of this encounter Visit Diagnoses Not on filedocumented in this encounter"
--- OUTSIDE RECORDS SUMMARY | ~2019-10-28 | XMS | Encounter Summary ---
Demographics + + + | Address | [address] | | | [place] [address] | + + + | Home Phone | | + + + | Preferred Language | Unknown | + + + | Marital Status | Single | + + + | Temple Affiliation | 1013 | + + + [...] Team Providers + +------+ + | Care Life Science Research Assistant Name | Role | Phone | + +------+ + PCP | Unavailable | + +------+ + Encounter Details +--------+ + + + + | Date | Type | Department | Care Team | Description | +--------+ + + + + | 02/12/ | [facility] | [facility] | | | | 2000 | Encounter | MED CTR XRAY [address] | | | | | [address] | | | | | | [place] [address] | | | | | | [phone] | | | +--------+ + + + [...] | | | | | [place] [address] | | | | | | [phone] | | | | | | | | +--------+ + + + + documented as of this encounter Visit Diagnoses Not on filedocumented in this encounter"
--- OUTSIDE RECORDS SUMMARY | ~2019-10-28 | XMS | Clinical Summary ---
Demographics + + + | Address | [address] | | | [place] [address] | + + + | Home Phone [...] Team Providers + +------+ + | Care Commercial Lending Relationship Manager Name | Role | Phone | + +------+ + | Lucy Godinez PA-C | PCP | | + +------+ + Allergies + + + + + + | Active Allergy | Reactions | Severity | Noted | Comments | | | | | Date | | + + + + + + | Oxycodone | Other (See Comments) | Medium | 02/12/20 | Severe withdrawal | | | | | 12 | when stopped. | + + + + + + | Oxycodone Hcl | | | | | + + + + + + | Zolpidem | Other (See Comments) | Medium | 02/12/20 | Walks in sleep | | | | | 12 | Sleep walking. | + + + + + + | Zolpidem Tartrate | | | | Walks in sleep | + + + + + + Medications + + + +---------+------+------+-------+ | Medication | Sig | Dispensed | Refills | Star | End | Statu | | | | | | t | Date | s | | | | | | Date | | | + + + +---------+------+------+-------+ | albuterol (PROAIR | Inhale 2 puffsonce a | | 0 | 09/1 | | Activ | | HFA) 90 mcg/puff | day as needed for | | | 3/20 | | e | | inhaler | Shortness of breath | | | 12 | | | + + + +---------+------+------+-------+ | simvastatin | Take 1 tablet by | | 0 | 09/1 | | Activ | | (ZOCOR) 20 mg tablet | mouth after supper | | | 3/20 | | e | | | or before bedtime | | | 12 | | | | | every day | | | | | | + + + +---------+------+------+-------+ | fluticasone | Inhale 2 sprays in | | 0 | 09/1 | | Activ | | (FLONASE) 50 | each nostril once | | | 3/20 | | e | | mcg/nasal spray | daily | | | 12 | | | + + + +---------+------+------+-------+ | | Take 50 mg by mouth | | 0 | 09/1 | | Activ | | hydrochlorothiazide | Daily. | | | 3/20 | | e | | (HYDRODIURIL) 50 MG | | | | 12 | | | | tablet | | | | | | | + + + +---------+------+------+-------+ | metroNIDAZOLE | 1 application | | 0 | 09/1 | | Activ | | (METROGEL) 1 % gel | topically once a day | | | 3/20 | | e | | | | | | 12 | | | + + + +---------+------+------+-------+ | esomeprazole | Take 40 mg by mouth | | 0 | 09/1 | | Activ | | (NEXIUM) 40 mg | Daily. | | | 02/18 | | e | | capsule | | | | 12 | | | + + + +---------+------+------+-------+ | ondansetron | Take 4 mg by mouth | | 0 | | | Activ | | (ZOFRAN) 4 mg tablet | every 8 hours as | | | | | e | | | needed. | | | | | | + + + +---------+------+------+-------+ | LORazepam (ATIVAN) | Take 1 mg by mouth | | 0 | | | Activ | | 1 mg tablet | every 6 hours as | | | | | e | | | needed. | | | | | | + + + +---------+------+------+-------+ | zonisamide | Take 300 mg by mouth | | 0 | | | Activ | | (ZONEGRAN) 100 mg | nightly. | | | | | e | | capsule | | | | | | | + + + +---------+------+------+-------+ | baclofen | Take 1 tablet by | | 0 | 01/1 | | Activ | | (LIORESAL) 10 mg | mouth nightly. | | | 6/20 | | e | | tablet | | | | 19 | | | + + + +---------+------+------+-------+ | cetirizine | Take 10 mg by mouth | | 0 | | | Activ | | (ZYRTEC) 10 mg | daily. | | | | | e | | tablet | | | | | | | + + + +---------+------+------+-------+ | desvenlafaxine | Take 50 mg by mouth | | 0 | | | Activ | | (PRISTIQ) 50 mg ER | daily. | | | | | e | | tablet | | | | | | | + + + +---------+------+------+-------+ | estradiol | Place 1 patch onto | | 0 | 02/2 | | Activ | | (VIVELLE-DOT) 0.05 | the skin once a | | | 2/20 | | e | | mg/24 hr | week. | | | 17 | | | + + + +---------+------+------+-------+ | | Take 2.5 mg by mouth | | 0 | | | Activ | | medroxyPROGESTERone | daily. | | | | | e | | (PROVERA) 2.5 mg | | | | | | | | tablet | | | | | | | + + + +---------+------+------+-------+ | melatonin 5 mg | Take 2 tablets by | | 0 | | | Activ | | tablet | mouth nightly. | | | | | e | + + + +---------+------+------+-------+ | meloxicam (MOBIC) | Take 15 mg by mouth | | 0 | | | Activ | | 15 mg tablet | daily. | | | | | e | + + + +---------+------+------+-------+ | omeprazole | Take 20 mg by mouth | | 0 | | | Activ | | (PRILOSEC) 20 mg | 2 (two) times daily. | | | | | e | | capsule | | | | | | | + + + +---------+------+------+-------+ | tamsulosin | Take 0.4 mg by mouth | | 0 | | | Activ | | (FLOMAX) 0.4 mg CAPS | After dinner. | | | | | e | + + + +---------+------+------+-------+ | zoster | inject 0.5 | | 0 | 12/1 | | Activ | | recombinant, PF, | milliliter | | | 3/20 | | e | | (SHINGRIX) 50 | intramuscularly | | | 18 | | | | mcg/0.5 mL vaccine | | | | | | | | injection | | | | | | | + + + +---------+------+------+-------+ | Cholecalciferol | 5000 units by twice | | 0 | | | Activ | | (VITAMIN D3) 5000 | a week | | | | | e | | UNIT/ML LIQD | | | | | | | + + + +---------+------+------+-------+ | gabapentin | Take 1 capsule by | | 0 | 05/1 | | Activ | | (NEURONTIN) 300 mg | mouth two times | | | 0/20 | | e | | capsule | daily. | | | 17 | | | + + + +---------+------+------+-------+ | | Take 12.5 mg by | | 0 | | | Activ | | hydroCHLOROthiazide | mouth daily. | | | | | e | | 25 mg tablet | | | | | | | + + + +---------+------+------+-------+ | levothyroxine | Take 50 mcg by mouth | | 0 | | | Activ | | (SYNTHROID) 50 mcg | daily. | | | | | e | | tablet | | | | | | | + + + +---------+------+------+-------+ | prazosin | Take 6 mg by mouth | | 0 | 05/1 | | Activ | | (MINIPRESS) 2 MG | nightly. | | | 0/20 | | e | | capsule | | | | 17 | | | + + + +---------+------+------+-------+ | traMADol (ULTRAM) | Take 2 tablet by | | 0 | 05/1 | | Activ | | 50 mg tablet | mouth 3 (three) | | | 0/20 | | e | | | times daily. 1-2 | | | 17 | | | | | tabs by mouth | | | | | | + + + +---------+------+------+-------+ | linaCLOtide | Take 24 mg by mouth | | 0 | | | Activ | | (LINZESS PO) | daily. | | | | | e | + + + +---------+------+------+-------+ | cholecalciferol | Take 2,000 Units by | | 0 | | | Activ | | (VITAMIN D-3) 1,000 | mouth Three times a | | | | | e | | units capsule | week. | | | | | | + + + +---------+------+------+-------+ | amantadine | Take 1 capsule by | 180 | 3 | 10/0 | | Activ | | (SYMMETREL) 100 mg | mouth in morning and | capsule | | 7/20 | | e | | capsule | 1 mid-day as | | | 19 | | | | | directed. | | | | | | + + + +---------+------+------+-------+ | estradiol | | | 0 | 09/0 | | Activ | | (CLIMARA) 0.05 mg/24 | | | | 5/20 | | e | | hr | | | | 19 | | | + + + +---------+------+------+-------+ Active Problems + + + | Problem | Noted Date | + + + | TORTOUS COLON | 01/08/2012 | + + + | CHANGE IN BOWEL HABITS | 12/31/2011 | + + + | ABDOMINAL PAIN-GENERALIZED | 12/31/2011 | + + + | Obesity | 12/31/2011 | + + + + + | Overview: CINTHYA [id number] Decision | + + + +---+ | MULTIPLE SCLEROSIS | | + +---+ + + | Overview: Start Tysagabrielai: Oct 2012 | | | | JCV- Negative-Index value: 0.16 (10/2013) | | JCV antibody intermediate, Negative (04/06/14). | | JCV antibody Negative 10/12/14 (0.18). | | Negative 04/06/15 (0.18). | + + + +---+ | IRRITABLE BOWEL SYNDROME | | + +---+ | INSOMNIA | | + +---+ | TOBACCO ABUSE | | + +---+ | CONSTIPATION, CHRONIC | | + +---+ | GASTROESOPHAGEAL REFLUX DISEASE | | + +---+ | PEDAL EDEMA | | + +---+ Encounters +--------+ + + + + | Date | Type | Specialty | Care Team | Description | +--------+ + + + + | 10/27/ | Clinical | Neurology | | MULTIPLE SCLEROSIS | | 2018 | Support | | | (Primary Dx); | | | | | | Encounter for | | | | | | medication | | | | | | monitoring | +--------+ + + + + | 10/27/ | Orders Only | Neurology | Denis Stokes, | MULTIPLE SCLEROSIS; | | 2018 | | | WAN | Encounter for | | | | | | medication | | | | | | monitoring | +--------+ + + + + | 10/13/ | Documentati | Neurology | Lizz Elmore | Orquidea (Touch | | 2018 | on | | [employer] | Reauthorization) | +--------+ + + + + | 09/29/ | Clinical | Neurology | | MULTIPLE SCLEROSIS | | 2018 | Support | | | (Primary Dx) | +--------+ + + + + | 09/29/ | Hospital | Radiology | Denis Stokes, | Multiple sclerosis | | 2018 | Encounter | | PA-Jacqueline | ([facility]) | +--------+ + + + + | 09/07/ | Refill | Neurology | Denis Stokes, | Medication Refill | | 2018 | | | NINAC | | +--------+ + + + + | 09/01/ | Procedure | Neurology | | MULTIPLE SCLEROSIS | | 2018 | visit | | | (Primary Dx) | +--------+ + + + + | 08/04/ | Procedure | Neurology | | MULTIPLE SCLEROSIS | | 2018 | visit | | | (Primary Dx) | +--------+ + + + + from Last 3 Months Immunizations + + + + | Name | Administration Dates | Next Due | + + + + | PNEUMOCOCCAL | 04/04/2011 | | | POLYSACCHARIDE | | | | 23-VALENT (PPSV23) | | | + + + + Family History + + +------+ + | Medical History | Relation | Name | Comments | + + +------+ + | Diabetes | Father | | | + + +------+ + | Heart disease | Father | | | + + +------+ + | High blood pressure | Mother | | | + + +------+ + | Diabetes | Other | | | + + +------+ + | Cancer | Paternal | | | | | Grandfath | | | | | er | | | + + +------+ + | Clotting disorder | Paternal | | | | | Grandfath | | | | | er | | | + + +------+ + | Diabetes | Paternal | | | | | Grandmoth | | | | | er | | | + + +------+ + + +------+--------+ + | Relation | Name | Status | Comments | + +------+--------+ + | Father | | Alive | | + +------+--------+ + | Mother | | Alive | | + +------+--------+ + | Other | | | | + +------+--------+ + | Paternal Grandfather | | | | + +------+--------+ + | Paternal Grandmother | | Alive | | + +------+--------+ + Social History + + + +--------+------+ [...] + + + | Blood Pressure | 147/86 | 10/27/2019 1:56 PM | | | | | PST | | + + + + + | Pulse | 86 | 10/27/2019 1:56 PM | | | | | PST | | + + + + + | Temperature | 36.1 C (97 F) | 10/27/2019 1:56 PM | | | | | PST | | + + + + + | Respiratory Rate | 18 | 07/08/2019 2:53 PM | | | | | PDT | | + + + + + | Oxygen Saturation | 98% | 10/27/2019 1:56 PM | | | | | PST | | + + + + + | Inhaled Oxygen | - | - | | | Concentration | | | | + + + + + | Weight | 85.2 kg (187 lb 12.8 | 07/07/2019 12:13 PM | | | | oz) | PDT | | + + + + + | Height | 157.5 cm (5' 2") | 07/07/2019 12:13 PM | | | | | PDT | | + + + + + | Body Mass Index | 34.35 | 07/07/2019 12:13 PM | | | | | PDT | | + + + + + Plan of Treatment +--------+ + + + [...] [place] | | | | | | [employer] [address] | | | | | | [place] [address] | | | | | | [phone] | | | | | | | | +--------+ + + + + + + + + + | Health Maintenance | Due Date | Last Done | Comments | + + + + + | Hepatitis C | | | | | Screening | 3 | | | + + + + + | Urine Drug Screening | | | | | | 9 | | | + + + + + | Cervical Cancer | | | | | Screening (Pap) | 3 | | | + + + + + | Breast Cancer | | | | | Screening | 8 | | | + + + + + | Adult Annual | | | | | Wellness Visit | 9 | | | + + + + + | Colorectal Cancer | | 01/08/2012 | | | Screening | 2 | | | | (Colonoscopy) | | | | + + + + + | Vaccine: | | 07/29/2015 | | | Dtap/Tdap/Td (2 - | 5 | | | | Td) | | | | + + + + + | Vaccine: Zoster | Completed | 11/13/2018, 07/17/2018 | | + + + + + | Vaccine: Influenza | Completed | 09/24/2019, 07/17/2018, | | | | | 08/19/2017, Additional history | | | | | exists | | + + + + + Procedures + +--------+ + + + | Procedure Name | Priori | Date/Time | Associated Diagnosis | Comments | | | ty | | | | + +--------+ + + + | MRI BRAIN WO | Routin | 09/29/2019 | Multiple sclerosis | Results for this | | CONTRAST | e | 12:42 PM | (HCC) | procedure are in the | | | | PDT | | results section. | + +--------+ + + + from Last 3 Months Results MRI Brain wo Contrast (09/29/2019 12:42 PM PDT) + + | Specimen | + + | | + + + + + | Impressions | Performed At | + + + | Stable appearance of multifocal white matter lesions consistent with | [facility] | | multiple sclerosis. No new lesions. Signed by: Heaven, | | | Blaze Adeel Sign Date/Time: 09/29/2019 2:27 PM | | + + + + + + | Narrative | Performed At | + + + | MRI BRAIN WITHOUT CONTRAST CLINICAL INFORMATION: Multiple | [facility] | | sclerosis follow up. COMPARISON: MRI BRAIN WO CONTRAST LIMITED | | | (04/26/2017); MRI BRAIN W WO CONTRAST (02/01/2016); MRI BRAIN WO | | | CONTRAST LIMITED (06/05/2013); PROCEDURE: Sagittal T1, axial FLAIR, | | | axial T2, axial T1, axial gradient susceptibility, coronal T2, axial | | | DWI. FINDINGS: Brain: There is no evidence of acute ischemia | | | noted. Hyperintense T2 signal seen along the left external capsule | | | is stable. Additional multifocal areas of T2 FLAIR signal along the | | | periventricular, subcortical and deep white matter are similar to | | | prior study. No new lesions are noted. Ventricles and | | | extra-axial fluid spaces: Normal. Sella, suprasellar cistern, and | | | orbits: Normal. Major vascular flow voids: Normal. Calvarium | | | and extracranial soft tissues: Normal. Paranasal sinuses and | | | mastoid air cells: Normal. | | + + + + + | Procedure Note | + + | Neri, Rad Results In - 09/29/2019 2:30 PM PDT | | MRI BRAIN WITHOUT CONTRAST | | | | CLINICAL INFORMATION: | | Multiple sclerosis follow up. | | | | COMPARISON: | | MRI BRAIN WO CONTRAST LIMITED (04/26/2017); MRI BRAIN W WO CONTRAST | | (02/01/2016); MRI BRAIN WO CONTRAST LIMITED (06/05/2013); | | | | PROCEDURE: | | Sagittal T1, axial FLAIR, axial T2, axial T1, axial gradient | | susceptibility, coronal T2, axial DWI. | | | | FINDINGS: | | Brain: There is no evidence of acute ischemia noted. Hyperintense T2 | | signal seen along the left external capsule is stable. Additional | | multifocal areas of T2 FLAIR signal along the periventricular, | | subcortical and deep white matter are similar to prior study. No new | | lesions are noted. | | | | Ventricles and extra-axial fluid spaces: Normal. | | | | Sella, suprasellar cistern, and orbits: Normal. | | | | Major vascular flow voids: Normal. | | | | Calvarium and extracranial soft tissues: Normal. | | | | Paranasal sinuses and mastoid air cells: Normal. | | | | IMPRESSION: | | Stable appearance of multifocal white matter lesions consistent with | | multiple sclerosis. No new lesions. | | | | | | | | Signed by: Blaze Collado Richard | | Sign Date/Time: 09/29/2019 2:27 PM | + + + +---------+ + + | Performing | Address | City/State/Zipcode | Phone Number | | Organization | | | | + +---------+ + + | [facility] | | | | + +---------+ + + from Last 3 Months Insurance + +--------+ +--------+ +---------+--------+ | Paresh | Noeli | Subscriber | Effect | Phone | Address | Type | | | t Plan | ID | hugo | | | | | | / | | Dates | | | | | | Group | | | | | | + +--------+ +--------+ +---------+--------+ | MEDICARE | MEDICA | [id number] | | [phone] | | Medica | | | RE | | 015-Pr | 5 | | re | | | PART A | | esent | | | | | | AND B | | | | | | + +--------+ +--------+ +---------+--------+ | MEDICARE SUPPLEMENT | MEDICA | [id number] | 07/02/20 | [phone] | | Indemn | | OTHER | RE | | 17-Pre | 0 | | ity | | | SUPPLE | | sent | | | | | | MENT | | | | | | | | OTHER | | | | | | + +--------+ +--------+ +---------+--------+ | [employer]AN | MODA | [id number] | | [phone] | | Medica | | MEDICAID HMO | HEALTH | | 012-Pr | 1 | | id | | | MDCD | | esent | | | | | | [place]MO [place] | | | | | | + +--------+ +--------+ +---------+--------+ + +--------+ +--------+ + + | Guarantor Name | Accoun | Relation to | Date | Phone | Billing Address | | | t Type | Patient | of | | | | | | | | | | + +--------+ +--------+ + + | Yane Lama | Person | Self [birth year] | [birth year] | al/Fam | | 1965 | [phone] | [place], [place] | | | nick | | | 3 (Home) | [address] | | | | | | [phone] | | | | | | | 4 (Work) | | + +--------+ +--------+ + + | KelbyYane Eeautumnwill | Person | Self | [birth year] | [address] | | | al/Fam | | 1965 | [phone] | [place] | | | nick | | | 3 (Home) | [address] | + +--------+ +--------+ + + Advance Directives + + + + + | Type | Date Recorded | Patient | Explanation | | | | Inker | | + + + + + | Power of | | | | | Engine Pilot | | | | + + + + + | Advance | | | | | Directive | | | | + + + + +
--- OUTSIDE RECORDS SUMMARY | ~2019-10-28 | XMS | Encounter Summary ---
Demographics + + + | Address | [address] | | | [place] [address] | + + + | Home Phone | | + + + | Preferred Language | Unknown | + + + | Marital Status | Single | + + + | Zoroastrianism Affiliation | 1013 | + + + | Race | Unknown | + + + | Ethnic Group | Unknown | + + + Author + + + | Author | [facility] | | | and [place] | + + + | Organization | [facility] | | | [...] Team Providers + +------+ + | Care Plating Inspector Name | Role | Phone | + +------+ + | Freddie Woodward MD | PCP | | + +------+ + Encounter Details +--------+ + + + + | Date | Type | Department | Care Team | Description | +--------+ + + + + | 07/02/ | Abstract | [facility] [place] | [facility], | | | 2012 | | GASTROENTEROLOGY | [address] | | | | | [address] [place] | [place] | | | | | [address] [place], [place] | [place], [place] | | | | | [address] | [address] | | | | | [phone] | | | +--------+ + + + [...] | | | | | [place] [address] | | | | | | [phone] | | | | | | | | +--------+ + + + + documented as of this encounter Visit Diagnoses Not on filedocumented in this encounter"
--- OUTSIDE RECORDS SUMMARY | ~2019-10-28 | XMS | Encounter Summary ---
Demographics + + + | Address | [address] | | | [place] [address] | + + + | Home Phone [...] + + + | Author | [facility] | | | and [place] | + + + | Organization | [facility] | | | [...] Team Providers + +------+ + | Care Speech/Language Therapist Name | Role | Phone | + +------+ + | Freddie Woodward MD | PCP | | + +------+ + Encounter Details +--------+ + + + + | Date | Type | Department | Care Team | Description | +--------+ + + + + | 06/05/ | Hospital | [facility] | Conversion | Multiple sclerosis | | 2013 | Encounter | [facility] MRI | Transaction, | ([facility]) | | | | [address] | Provider Unknown | | | | | [place], [place] | | | | | | [address] | (Fax) | | | | | [phone] | | | +--------+ + + + [...] | | | | | [place] [address] | | | | | | [phone] | | | | | | | | +--------+ + + + + documented as of this encounter Procedures + +--------+ + + + | Procedure Name | Priori | Date/Time | Associated Diagnosis | Comments | | | ty | | | | + +--------+ + + + | MRI BRAIN WO | Routin | 06/05/2013 | | Results for this | | CONTRAST LIMITED | e | 2:38 PM | | procedure are in the | | | | PDT | | results section. | + +--------+ + + + documented in this encounter Results MRI Brain wo Contrast Limited (06/05/2013 2:38 PM PDT) + + | Specimen | + + | | + + + + | Addenda | + + | Addendum by Lalo Castro MD on 03/11/2014 4:07 PM I have been asked to compare | | the MRI performed elsewhere on 05/21/12 study performed here, last year on 06/05/13. The | | imaging sequences are not identical there are are the the imaging instruments. | | Therefore, a variation in image detection is to be expected. Insofar as the largest | | lesion is concerned, that lesions seen in the right parietal lobe just above the | | lateral ventricle was present on the prior study and is unchanged on the 2013 study. | | Other smaller lesions are more evident on the 2013 study done at 2012 study but | | whether this is a function of disease progression or variations in imaging is | | indeterminate. | + + + + + | Narrative | Performed At | + + + | [facility] MRI BRAIN WO LIMITED 06/05/2013 2:17 PM HISTORY: | | | 48 years. Female. Tysabri treatment for multiple sclerosis in this | | | patient. Evaluate for PML TECHNIQUE: 1.5 Gisselle magnet with | | | diffusion and flair sequences COMPARISON: None FINDINGS: The | | | diffusion sequence is unremarkable. The T2 sequence does demonstrate | | | plaque formation at multiple supratentorial locations. These are | | | scattered bilaterally throughout the frontal parietal lobe white | | | matter tracks of variable dimension. The largest on the right is in | | | the white matter tract with a diameter of 3 x 4 mm, image 7/5 and on | | | the left near the frontal horn, image 10/5 at 9 by 6 mm. No | | | infratentorial plaque is seen. The Pontomedullary area appears normal. | | | No involvement of the corpus callosum is seen There is no MR | | | evidence of PML. on this study. IMPRESSION: 1. Confirms | | | multiple sclerosis with multifocal plaques in the supratentorial white | | | matter. No evidence of PML. | | + + + + + | Procedure Note | + + | Darrin He Conversion - 07/24/2019 5:54 PM PDT [facility] BRAIN WO | | LIMITED06/05/2013 2:17 PM HISTORY:48 years. Female. Tysabri treatment for multiple | | sclerosis in this patient. Evaluate for PML TECHNIQUE:1.5 Gisselle magnet with diffusion | | and flair sequences COMPARISON:None FINDINGS:The diffusion sequence is unremarkable. The | | T2 sequence does demonstrate plaque formation at multiple supratentorial locations. | | These are scattered bilaterally throughout the frontal parietal lobe white matter tracks | | of variable dimension. The largest on the right is in the white matter tract with a | | diameter of 3 x 4 mm, image 7/5 and on the left near the frontal horn, image 10/5 at 9 | | by 6 mm. No infratentorial plaque is seen. The Pontomedullary area appears normal. No | | involvement of the corpus callosum is seen There is no MR evidence of PML. on this | | study. IMPRESSION:1. Confirms multiple sclerosis with multifocal plaques in the | | supratentorial white matter. No evidence of PML. | |FINDINGS: | |The diffusion sequence is unremarkable. The T2 sequence does demonstrate plaque formation a t multiple supratentorial locations. These are scattered bilaterally throughout the frontal parietal lobe white matter tracks of | |variable dimension. The largest on | | the right is in the white matter tract with a diameter of 3 x 4 mm, image 7/5 and on the l eft near the frontal horn, image 10/5 at 9 by 6 mm. No infratentorial plaque is seen. The Po ntomedullary area appears normal. No | |involvement of the corpus callosum | | is seen | | | |There is no MR evidence of PML. on this study. | | | |IMPRESSION: | |1. Confirms multiple sclerosis with multifocal plaques in the supratentorial white matter. No evidence of PML. | | | | | + + documented in this encounter Visit Diagnoses + + | Diagnosis | + + | Multiple sclerosis (HCC) Multiple sclerosis | + + documented in this encounter"
--- OUTSIDE RECORDS SUMMARY | ~2019-10-28 | XMS | Encounter Summary ---
Demographics + + + | Address | [address] | | | [place] [address] | + + + | Home Phone | | + + + | Preferred Language | Unknown | + + + | Marital Status | Single | + + + | Scientology Affiliation | 1013 | + + + | Race | Unknown | + + + | Ethnic Group | Unknown | + + + Author + + + | Author | [facility] | | | and [place] | + + + | Organization | [facility] | | | [...] Team Providers + +------+ + | Care Lead Pressman Name | Role | Phone | + +------+ + PCP | Unavailable | + +------+ + Encounter Details +--------+ + + + + | Date | Type | Department | Care Team | Description | +--------+ + + + + | 03/07/ | Hospital | [facility] | Unknown, | | | 1992 | Encounter | [facility] X[facility] [address] | MD Marlena | | | | | [place] | | | | | | [place] [address] | (Fax) | | | | | [phone] | | | +--------+ + + + [...] | | | | | [place] [address] | | | | | | [phone] | | | | | | | | +--------+ + + + + documented as of this encounter Visit Diagnoses Not on filedocumented in this encounter"
--- OUTSIDE RECORDS SUMMARY | ~2019-10-28 | XMS | Encounter Summary ---
Demographics + + + | Address | [address] | | | [place] [address] | + + + | Home Phone | | + + + | Preferred Language | Unknown | + + + | Marital Status | Single | + + + | Jew Affiliation | 1013 | + + + | Race | Unknown | + + + | Ethnic Group | Unknown | + + + Author + + + | Author | [facility] | | | and [place] | + + + | Organization | [facility] | | | and [place] | + + + | Address | Unknown | + + + | Phone | Unavailable | + + + Support + + +---------+ + | Name | Relationship | Address | Phone | + + +---------+ + | Juancarlos Welsl | ECON | Unknown | | + + +---------+ + | Yaneli Wells | ECON | Unknown | | + + +---------+ + Care Team Providers + +------+ + | Care Service Delivery Supervisor Name | Role | Phone | + +------+ + | Freddie Woodward MD | PCP | | + +------+ + Encounter Details +--------+ + + + + | Date | Type | Department | Care Team | Description | +--------+ + + + + | 12/26/ | Orders Only | [facility] | [place] Carr[place]io, | | | 2016 | | [address] | [address] | | | | | [place], [place] | [address] | | | | | [address] | [place] [address] | | | | | [phone] | [phone] | | | | | | | [...] | | | | | [place] [address] | | | | | | [phone] | | | | | | | | +--------+ + + + + documented as of this encounter Procedures + +--------+ + + + | Procedure Name | Priori | Date/Time | Associated Diagnosis | Comments | | | ty | | | | + +--------+ + + + | ARMANDO VIRUS AB W/INDEX, | Routin | 11/20/2017 | | Results for this | | QUAL, REFLEX INHIB | e | 1:20 PM | | procedure are in the | | ASSAY | | PST | | results section. | + +--------+ + + + | ARMANDO VIRUS AB W/INDEX, | Routin | 05/08/2017 | | Results for this | | QUAL, REFLEX INHIB | e | 6:37 PM | | procedure are in the | | ASSAY | | PDT | | results section. | + +--------+ + + + | ARMANDO VIRUS AB W/INDEX, | Routin | 12/26/2016 | | Results for this | | QUAL, REFLEX INHIB | e | 1:57 PM | | procedure are in the | | ASSAY | | PST | | results section. | + +--------+ + + + documented in this encounter Results ARMANDO Virus Antbody W/Index, Qual, Reflex (11/20/2017 1:20 PM PST) + + + + + + | Component | Value | Ref Range | Performed | Pathologist | | | | | At | Signature | + + + + + + | Index Value | 0.12 | | EXTERNAL | | | | [...] | | | + +---------+ + + ARMANDO Virus Antbody W/Ross, Qual Reflex (05/08/2017 6:37 PM PDT) + + + + + + | Component | Value | Ref Range | Performed | Pathologist | | | | | At | Signature | + + + + + + | Index Value | 0.16 | | EXTERNAL | | | | [...] JCV-SPECIFIC | | | | | | ANTIBODIES. | | | | + + + + + + + + | Specimen | + + | | + + + +---------+ + + | Performing | Address | City/State/Zipcode | Phone Number | | Organization | | | | + +---------+ + + | EXTERNAL LAB | | | | + +---------+ + + ARMANDO Virus Antbody W/Endy Hawkins Reflex (12/26/2016 1:57 PM PST) + + + + + + | Component | Value | Ref Range | Performed | Pathologist | | | | | At | Signature | + + + + + + | Index Value | 0.23 | | EXTERNAL | | | | | | LAB | | + + + + + + | HLA | INDETERMINATE | | EXTERNAL | | | Antibody | (A)Comment: INDEX | | LAB | | | Result | INTERPRETIVE CRITERIA: | | | | | | <0.20 NEGATIVE | | | | [...] JCV-SPECIFIC | | | | | | ANTIBODIES. | | | | + + + [...]
--- OUTSIDE RECORDS SUMMARY | ~2019-10-28 | XMS | Encounter Summary ---
Demographics + + + | Address | [address] | | | [place] [address] | + + + | Home Phone | | + + + | Preferred Language | Unknown | + + + | Marital Status | Single | + + + | Methodist Affiliation | 1013 | + + + [...] Team Providers + +------+ + | Care Sales Recruitment Specialist Name | Role | Phone | + +------+ + PCP | Unavailable | + +------+ + Encounter Details +--------+ + + + + | Date | Type | Department | Care Team | Description | +--------+ + + + + | 11/06/ | [facility] | [facility] | | | | 1999 - | Encounter | MED CTR MED ONC | | | | | | [address] | | | | 11/07/ | | [place] [address] | | | | 1999 | | [phone] | | | +--------+ + + + [...] | | | | | [place] [address] | | | | | | [phone] | | | | | | | | +--------+ + + + + documented as of this encounter Visit Diagnoses Not on filedocumented in this encounter"
--- OUTSIDE RECORDS SUMMARY | ~2019-10-28 | XMS | Encounter Summary ---
Demographics + + + | Address | [address] | | | [place] [address] | + + + | Home Phone | | + + + | Preferred Language | Unknown | + + + | Marital Status | Single | + + + | Yazidism Affiliation | 1013 | + + + | Race | Unknown | + + + | Ethnic Group | Unknown | + + + Author + + + | Author | [facility] | | | and [place] | + + + | Organization | [facility] | | | [...] Team Providers + +------+ + | Care Ophthalmic Medical Technician Name | Role | Phone | + +------+ + | Freddie Woodward MD | PCP | | + +------+ + Encounter Details +--------+ + + + + | Date | Type | Department | Care Team | Description | +--------+ + + + + | 11/06/ | Orders Only | [facility] | Denis Stokes, | | | 2017 | | [address] | [place] | | | | | [place], [place] | [address] | | | | | [address] | [place] [address] | | | | | [phone] | | | | | | | [...] | | | | | [place] [address] | | | | | | [phone] | | | | | | | | +--------+ + + + + documented as of this encounter Procedures + +--------+ + + + | Procedure Name | Priori | Date/Time | Associated Diagnosis | Comments | | | ty | | | | + +--------+ + + + | ARMANDO VIRUS AB W/INDEX, | Routin | 11/06/2018 | | Results for this | | QUAL, REFLEX INHIB | e | 7:39 PM | | procedure are in the | | ASSAY | | PST | | results section. | + +--------+ + + + documented in this encounter Results ARMANDO Virus Antbody W/Index, Qual, Reflex (11/06/2018 7:39 PM PST) + + + + + [...] | | | | | Antibodies to ARMNADO virus | | | | | | [...]
--- OUTSIDE RECORDS SUMMARY | ~2019-10-28 | XMS | Encounter Summary ---
Demographics + + + | Address | [address] | | | [place] [address] | + + + | Home Phone [...] Team Providers + +------+ + | Care Prepress Technician Name | Role | Phone | + +------+ + PCP | Unavailable | + +------+ + Encounter Details +--------+ + + + + | Date | Type | Department | Care Team | Description | +--------+ + + + + | 01/22/ | [facility] | [facility] | | | | 2006 | Encounter | MED CTR LABORATORY | | | | | | [address] | | | | | | [place] | | | | | | [address] | | | | | | [phone] | | | +--------+ + + + [...] | | | | | [place] [address] | | | | | | [phone] | | | | | | | | +--------+ + + + + documented as of this encounter Visit Diagnoses Not on filedocumented in this encounter"
--- OUTSIDE RECORDS SUMMARY | ~2019-10-28 | XMS | Encounter Summary ---
Demographics + + + | Address | [address] | | | [place] [address] | + + + | Home Phone | | + + + | Preferred Language | Unknown | + + + | Marital Status | Single | + + + | Jew Affiliation | 1013 | + + + | Race | Unknown | + + + | Ethnic Group | Unknown | + + + Author + + + | Author | [facility] | | | and [place] | + + + | Organization | [facility] | | [...] Team Providers + +------+ + | Care Superintendent Radio Communications Name | Role | Phone | + +------+ + | Susan Ahn MD | PCP | | + +------+ + Encounter Details +--------+ + + + + | Date | Type | Department | Care Team | Description | +--------+ + + + + | 05/26/ | Hospital | [facility] | Conversion | | | 2012 | Encounter | [facility] | Transaction, | | | | | OUTPATIENT | Provider Unknown | | | | | PROCEDURES [address] | [address] | (Fax) | | | | | [place], [place] | | | | | | [address] | | | | | | [phone] | | | +--------+ + + + [...] | | | | | [place] [address] | | | | | | [phone] | | | | | | | | +--------+ + + + + documented as of this encounter Visit Diagnoses Not on filedocumented in this encounter"
--- OUTSIDE RECORDS SUMMARY | ~2019-10-28 | XMS | Encounter Summary ---
Demographics + + + | Address | [address] | | | [place] [address] | + + + | Home Phone | | + + + | Preferred Language | Unknown | + + + | Marital Status | Single | + + + | Christian Affiliation | 1013 | + + + [...] Team Providers + +------+ + | Care Yard Goods Salesperson Name | Role | Phone | + [...] | 07/13/ | Telephone | [address] | [facility], | Appointment (MRI) | | 2012 | | GASTROENTEROLOGY | KEYANA Rayo [address] | | | | | [address] [place] | [place], [address] | | | | | [address] [place], [place] | [place], [place] | | | | | [address] | [address] | | | | | [phone] | | | +--------+ + + + [...] | | | | | [place] [address] | | | | | | [phone] | | | | | | | | +--------+ + + + + documented as of this encounter Visit Diagnoses Not on filedocumented in this encounter"
--- OUTSIDE RECORDS SUMMARY | ~2019-10-28 | XMS | Encounter Summary ---
Demographics + + + | Address | [address] | | | [place] [address] | + + + | Home Phone | | + + + | Preferred Language | Unknown | + + + | Marital Status | Single | + + + | Mormonism Affiliation | 1013 | + + + | Race | Unknown | + + + | Ethnic Group | Unknown | + + + Author + + + | Author | [facility] | | | and [place] | + + + | Organization | [facility] | | | and [place] | + + + | Address | Unknown | + + + | Phone | Unavailable | + + + Support + + +---------+ + | Name | Relationship | Address | Phone | + + +---------+ + | Ronenliberty Wells | ECON | Unknown | | + + +---------+ + | Yaneli Wells | ECON | Unknown | | + + +---------+ + Care Team Providers + +------+ + | Care Vermin Exterminator Name | Role | Phone | + [...] Closed | | Radiology | Diagnoses | Divya, | [facility] | | | | | Multiple | [place] | [address] | | | | | sclerosis | [address] | | | | | (HCC) | [address] | [place], [place] | | | | | Procedures | [address] | [address] | | | | | MRI Brain wo | D | Phone: | | | | | Contrast | [place], | [phone] | | | | | | [place] [address] | Fax: | | | | | | Phone: | [phone] | | | | | | [phone] | | | | | | | Fax: | | | | | | | [phone] | | +--------+--------+ + + + + Reason for Visit Diagnostic/Screening (Routine) +--------+--------+ + + + + | Status | Reason | Specialty | Diagnoses / | Referred By | Referred To | | | | | Procedures | Contact | Contact | +--------+--------+ + + + + | Closed | | Radiology | Diagnoses | Divya, | [facility] | | | | | Multiple | [place] | [address] | | | | | sclerosis | [address] | | | | | (HCC) | [address] | [place], [place] | | | | | Procedures | [address] | [address] | | | | | MRI Brain wo | D | Phone: | | | | | Contrast | [place], | [phone] | | | | | | [place] [address] | Fax: | | | | | | Phone: | [phone] | | | | | | [phone] | | | | | | | Fax: | | | | | | | [phone] | | +--------+--------+ + + + + Encounter Details +--------+ + + + + | Date | Type | Department | Care Team | Description | +--------+ + + + + | 09/29/ | Hospital | [facility] | Denis Stokes, | Multiple sclerosis | | 2019 | Encounter | [facility] MRI [address] | (HCC) | | | | [address] | [address] | | | | | [place], [place] | [place] [address] | | | | | [address] | [phone] | | | | | [phone] | | | +--------+ + + + [...] + + + +---------+ + + | amantadine | Take 1 capsule by | 180 | 3 | 09/07/20 | | | (SYMMETREL) 100 mg | mouth in morning and | capsule | | 19 | | | capsule | 1 mid-day as | | | | | | | directed. | | | | | + + + +---------+ + + | baclofen | Take 1 tablet by | | 0 | 12/17/19 | | | (LIORESAL) 10 mg | mouth nightly. | | | 19 | | | tablet | | | | | | + + + +---------+ + + | cetirizine | Take 10 mg by mouth | | 0 | | | | (ZYRTEC) 10 mg | daily. | | | | | | tablet | | | | | | + + + +---------+ + + | cholecalciferol | Take 2,000 Units by | | 0 | | | | (VITAMIN D-3) 1,000 | mouth Three times a | | | | | | units capsule | week. | | | | | + + + +---------+ + + | Cholecalciferol | 5000 units by twice | | 0 | | | | (VITAMIN D3) 5000 | a week | | | | | | UNIT/ML LIQD | | | | | | + + + +---------+ + + | desvenlafaxine | Take 50 mg by mouth | | 0 | | | | (PRISTIQ) 50 mg ER | daily. | | | | | | tablet | | | | | | + + + +---------+ + + | esomeprazole | Take 40 mg by mouth | | 0 | 08/14/20 | | | (NEXIUM) 40 mg | Daily. | | | 12 | | | capsule | | | | | | + + + +---------+ + + | estradiol | | | 0 | 08/06/20 | | | (CLIMARA) 0.05 mg/24 | | | | 19 | | | hr | | | | | | + [...] mg by mouth | | 0 | 09/13/20 | | | hydrochlorothiazide | Daily. | | | 12 | | | (HYDRODIURIL) 50 MG | | | | | | | tablet | | | | | | + + + +---------+ + + | | Take 12.5 mg by | | 0 | | | | hydroCHLOROthiazide | mouth daily. | | | | | | 25 mg tablet | | | | | | + + + +---------+ + + | levothyroxine | Take 50 mcg by mouth | | 0 | | | | (SYNTHROID) 50 mcg | daily. | | | | | | tablet | | | | | | + + + +---------+ + + | linaCLOtide | Take 24 mg by mouth | | 0 | | | | (LINZESS PO) | daily. | | | | | + + + +---------+ + + | LORazepam (ATIVAN) | Take 1 mg by mouth | | 0 | | | | 1 mg tablet | every 6 hours as | | | | | | | needed. | | | | | + + + +---------+ + + | | Take 2.5 mg by mouth | | 0 | | | | medroxyPROGESTERone | daily. | | | | | | (PROVERA) 2.5 mg | | | | | | | tablet | | | | | | + + + +---------+ + + | melatonin 5 mg | Take 2 tablets by | | 0 | | | | tablet | mouth nightly. | | | | | + + + +---------+ + + | meloxicam (MOBIC) | Take 15 mg by mouth | | 0 | | | | 15 mg tablet | daily. | | | | | + + + +---------+ + + | metroNIDAZOLE | 1 application | | 0 | 08/14/20 | | | (METROGEL) 1 % gel | topically once a day | | | 12 | | + + + +---------+ + + | omeprazole | Take 20 mg by mouth | | 0 | | | | (PRILOSEC) 20 mg | 2 (two) times daily. | | | | | | capsule [...] + + + +---------+ + + | tamsulosin | Take 0.4 mg by mouth | | 0 | | | | (FLOMAX) 0.4 mg CAPS | After dinner. | | | | | + + [...] + + + +---------+ + + | zoster | inject 0.5 | | 0 | 11/13/20 | | | recombinant, PF, | milliliter | | | 18 | | | (SHINGRIX) 50 | intramuscularly | | | | | | mcg/0.5 mL vaccine | | | | | | | injection | | | | | | + [...] | | | | | [place] [address] | | | | | | [phone] | | | | | | | [...] this encounter Results MRI Brain wo Contrast (09/29/2019 12:42 PM PDT) + + | Specimen | + + | | + + + + + | Impressions | Performed At | + + + | Stable appearance of multifocal white matter lesions consistent with | [facility] | | multiple sclerosis. No new lesions. Signed by: Heaven | | | Blaze Adeel Sign Date/Time: [...] + + | Performing | Address | City/State/[facility] | Phone Number | | Organization | | | | + +---------+ + + | [facility] | | | | + +---------+ + + documented in this encounter Visit Diagnoses + + | Diagnosis | + + | Multiple sclerosis (HCC) Multiple sclerosis | + + documented in this encounter"
--- OUTSIDE RECORDS SUMMARY | ~2019-10-28 | XMS | Encounter Summary ---
Demographics + + + | Address | [address] | | | [place] [address] | + + + | Home Phone | | + + + | Preferred Language | Unknown | + + + | Marital Status | Single | + + + | Latter-Day Affiliation | 1013 | + + + | Race | Unknown | + + + | Ethnic Group | Unknown | + + + Author + + + | Author | [facility] | | | and [place] | + + + | Organization | [facility] | | | [...] Team Providers + +------+ + | Care Tool And Die Repair Name | Role | Phone | + +------+ + | Freddie Woodward MD | PCP | | + +------+ + Encounter Details +--------+ + + + + | Date | Type | Department | Care Team | Description | +--------+ + + + + | 09/15/ | Hospital | [facility] | Conversion | | | 2012 | Encounter | [facility] | Transaction, | | | | | OUTPATIENT | Provider Unknown | | | | | PROCEDURES [address] | [address] | (Fax) | | | | | [place], [place] | | | | | | [address] | | | | | | [phone] | | | +--------+ + + + [...] | | | | | [place] [address] | | | | | | [phone] | | | | | | | | +--------+ + + + + documented as of this encounter Visit Diagnoses Not on filedocumented in this encounter"
--- OUTSIDE RECORDS SUMMARY | ~2019-10-28 | XMS | Encounter Summary ---
Demographics + + + | Address | [address] | | | [place] [address] | + + + | Home Phone | | + + + | Preferred Language | Unknown | + + + | Marital Status | Single | + + + | Yarsanism Affiliation | 1013 | + + + | Race | Unknown | + + + | Ethnic Group | Unknown | + + + Author + + + | Author | [facility] | | | and [place] | + + + | Organization | [facility] | | [...] Team Providers + +------+ + | Care External Relations Director Name | Role | Phone | + +------+ + | Freddie Woodward MD | PCP | | + +------+ + Reason for Visit +--------+ + | Reason | Comments | +--------+ + | Other | pancreas | +--------+ + Evaluate & Treat (Routine) +--------+--------+ + + + + | Status | Reason | Specialty | Diagnoses / | Referred By | Referred To | | | | | Procedures | Contact | Contact | +--------+--------+ + + + + | Closed | | Gastroenterol | Diagnoses | Crissy, | Veronica, | | | | ogy | Obstruction | Freddie Paula, | Kaz Quiñones MD | | | | | of bile | [address] | [address], | | | | | duct | [address] | [place] [address] | | | | | Procedures | [place], | [place], | | | | | Evaluate and | [place] [address] | [place] [address] | | | | | Treat | Phone: | Phone: | | | | | | [phone] | [phone] | | | | | | Fax: | Fax: | | | | | | [phone] | [phone] | +--------+--------+ + + + + Encounter Details +--------+---------+ + + + | Date | Type | Department | Care Team | Description | +--------+---------+ + + + | 07/07/ | Office | [facility] [place] | [place], | Abdominal pain | | 2012 | Visit | GASTROENTEROLOGY | KEYANA Rayo [address] | (Primary Dx); ALT | | | | [address] [place] | [address], [place] [address] | (SGPT) level raised; | | | | [address] [place], [place] | [place], [place] | Pancreatic ductal | | | | [address] | [address] | abnormality; Other | | | | [phone] | | symptoms involving | | | | | | digestive system | +--------+---------+ + + + Social History + + [...] + + + | Blood Pressure | 116/78 | 07/07/2013 11:30 AM | | | | | PDT | | + + + + + | Pulse | 74 | 07/07/2013 11:30 AM | | | | | PDT | | + + + + + | Temperature | 36.1 C (97 F) | 07/07/2013 11:30 AM | | | | | PDT | | + + + + + | Respiratory Rate | 16 | 07/07/2013 11:30 AM | | | | | PDT | | + + + + + | Oxygen Saturation | - | - | | + + + + + | Inhaled Oxygen | - | - | | | Concentration | | | | + + + + + | Weight | 85.7 kg (189 lb) | 07/07/2013 11:30 AM | | | | | PDT | | + + + + + | Height | 157.5 cm (5' 2") | 07/07/2013 11:30 AM | | | | | PDT | | + + + + + | Body Mass Index | 34.57 | 07/07/2013 11:30 AM | | | | | PDT | | + + + + + documented in this encounter Progress Notes Perri Oquendo ARNP - 07/07/2013 11:42 AM PDTFormatting of this note might be differe nt from the original. Yane Lama is a 48 y.o. female with a history of multiple sclerosis here for followup e levated LFTs. History of present illness: Patient notes that she began to have increasing pain on the right side of her abdomen for t he past 2 months. She has pain with having BM. It feels like her "insides are coming out". Stools are painful and feel like burning sensation. She states she has painful BM about 30 minutes after eatin g. Types of foods do not seem to effect BM. Patient is status post cholecystectomy due to biliary colic. Prior to this she underwent a n ERCP with Dr. Elder. It appears he was unable to cannulate the common bile duct. However , she developed post ERCP pancreatitis resulting in hospitalization for 4 days. MRCP was no rmal at that time. She was reevaluated for epigastric pain radiated into her back in 2006. She was seen in [facility] office by Dr. Martin for "recurrent episodes of pancreatitis".Following appointment with Dr Loretta Martin she was diagnosed with epigastric pain, probably related to biliary dyskinesia and q uestionable microlithiasis. She then underwent an EGD with ERCP with Dr. Martin. She was fo und to have abnormal placement of her pancreatic duct. A pancreatic stent was placed and wa s removed approximately 2 weeks later. She has been stable since 2 months ago. During emergency appendectomy, she states she was told she had fatty liver. Denies fevers, chills, jaundice, or itching. Allergies Allergen Reactions Ambien Walks in sleep Oxycodone Hcl Past Medical History Diagnosis Date Impaired fasting glucose Abnormal involuntary movements Allergic rhinitis, cause unspecified Irritable bowel syndrome Unspecified constipation Insomnia, unspecified Intervertebral lumbar disc disorder with myelopathy, lumbar region Tobacco use disorder Edema Obstruction of bile duct Esophageal reflux Multiple sclerosis Candidiasis of skin and nails Ingrowing nail Nightmares Unspecified pruritic disorder Other specified disease of hair and hair follicles Prurigo Other specified disease of white blood cells Other malaise and fatigue Excessive or frequent menstruation Other dysfunctions of sleep stages or arousal from sleep Other alteration of consciousness Unspecified disorder of the teeth and supporting structures Atypical face pain Other and unspecified hyperlipidemia Chronic pancreatitis Multiple sclerosis Obstruction of bile duct Impaired fasting glucose Past Surgical History Procedure Date Appendectomy Stent pancreas Cholecystectomy Tonsillectomy and adenoidectomy Family History Problem Relation Age of Onset High blood pressure Mother Diabetes Father Heart disease Father Diabetes Paternal Grandmother History Social History Marital Status: Single Spouse Name: N/A Number of Children: N/A Years of Education: N/A Occupational History Not on file. Social History Main Topics Smoking status: Current Everyday Smoker Types: Cigarettes Smokeless tobacco: Never Used Alcohol Use: No Drug Use: No Sexually Active: Not on file Other Topics Concern Not on file Social History Narrative No narrative on file Review of systems: Constitutional:Denies any fevers, chills, or unintentional weight loss. Respiratory:Denies shortness of breath, cough or wheezing. Gastrointestinal: Negative except for stated above. Cardiovascular:Denies chest pain, palpitations, or swelling to legs Physical exam: General: well developed, well nourished, in no acute distress. Head: normocephalic and atraumatic Eyes: Sclera clear Mouth: MMM Lungs: Clear to auscultate bilaterally and throughout Heart: regular rate and rhythm Abdomen: Soft, mildly tender to palpation over entire abdomen, non distended, bowel tones positi ve times 4 quadrants, negative Randall's sign, negative rebound tenderness, no guarding, no h epatosplenomegaly palpated. Msk: symmetrical with no deformity, with normal posture and gait, normal strength. Extremities: no clubbing, cyanosis, edema, or deformity noted Neurologic: no focal deficits, cranial nerves II-XII grossly intact Skin: intact without lesions or rashes. Psych: alert and cooperative; normal mood and affect; normal attention span and concentration. Laboratory 05/22/2013 : WBC 6.5 Hemoglobin 15.0 Hematocrit 44.9 Platelets 202,000 Na 138 K 3.8 Cl 106 CO2 21 BUN 9 Creatinine 0.9 Total Bili 1.1 AST 31 ALT 52 Alk Phos 93 Total Protein 6.4 Albumin 4.5 Assessment 1. Abdominal pain 2. ALT (SGPT) level raised 52 U/L 3. 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 Other symptoms involving digestive system Plan: Discussed that the mild elevation in her liver function tests may be due to previously diag nosed fatty liver. However, due to her history, will discuss further with Dr. Martin. Patient is on depression she may require another pancreatic stent. Discussed this not like ly due to very mild elevation in ALT. Will likely recommend imaging first. Will follow up with results. Patient is to call with any question or concerns. Any fevers, chills, chest pain, SOB or other serious symptoms patient is to call the office or go to ER . Cc: Freddie Woodward Reviewed most recent labs, imaging, and procedures. documented in this encounter Plan of Treatment [...] | | | | | [place] [address] | | | | | | [phone] | | | | | | | | +--------+ + + + + documented as of this encounter Visit Diagnoses + + | Diagnosis | + + | Abdominal pain - Primary Abdominal pain, unspecified site | + + | ALT (SGPT) level raised Nonspecific elevation of levels of transaminase or lactic | | acid dehydrogenase (LDH) | + + | Pancreatic ductal abnormality Other specified disease of pancreas | + + | Other symptoms involving digestive system(787.99) Other symptoms involving digestive | | system | + + documented in this encounter
--- OUTSIDE RECORDS SUMMARY | ~2019-10-28 | XMS | Encounter Summary ---
Demographics + + + | Address | [address] | | | [place] [address] | + + + | Home Phone | | + + + | Preferred Language | Unknown | + + + | Marital Status | Single | + + + | Zoroastrian Affiliation | 1013 | + + + | Race | Unknown | + + + | Ethnic Group | Unknown | + + + Author + + + | Author | [facility] | | | and [place] | + + + | Organization | [facility] | | | and [...] Team Providers + +------+ + | Care Apprentice Plumber Name | Role | Phone | + +------+ + | Freddie Woodward MD | PCP | | + +------+ + Encounter Details +--------+ + + + + | Date | Type | Department | Care Team | Description | +--------+ + + + + | 01/31/ | Hospital | [facility] | Conversion | Multiple sclerosis | | 2016 | Encounter | [facility] | Transaction, | ([facility]) | | | | [address] | Provider Unknown | | | | | [place], [place] | | | | | | [address] | (Fax) | | | | | [phone] | | | +--------+ + + + [...] D | | | | | | [place] [address] | | | | | | [phone] | | | | | | | [...]
--- OUTSIDE RECORDS SUMMARY | ~2019-10-28 | XMS | Encounter Summary ---
Demographics + + + | Address | [address] | | | [place] [address] | + + + | Home Phone | | + + + | Preferred Language | Unknown | + + + | Marital Status | Single | + + + | Anabaptism Affiliation | 1013 | + + + | Race | Unknown | + + + | Ethnic Group | Unknown | + + + Author + + + | Author | [facility] | | | and [place] | + + + | Organization | [facility] | | [...] Team Providers + +------+ + | Care Door Assembler Name | Role | Phone | + +------+ + PCP | Unavailable | + +------+ + Encounter Details +--------+ + + + + | Date | Type | Department | Care Team | Description | +--------+ + + + + | 10/20/ | [facility] | [facility] | | | | 2006 | Encounter | MED CTR XRAY [address] | | | | | | [address] | | | | | | [place] [address] | | | | | | [phone] | | | +--------+ + + + [...] | | | | | [place] [address] | | | | | | [phone] | | | | | | | | +--------+ + + + + documented as of this encounter Visit Diagnoses Not on filedocumented in this encounter"
--- OUTSIDE RECORDS SUMMARY | ~2019-10-28 | XMS | Encounter Summary ---
Demographics + + + | Address | [address] | | | [place] [address] | + + + | Home Phone [...] Team Providers + +------+ + | Care Manager Environmental Services Name | Role | Phone | + +------+ + PCP | Unavailable | + +------+ + Encounter Details +--------+ + + + + | Date | Type | Department | Care Team | Description | +--------+ + + + + | 04/18/ | [facility] | [facility] | | | | 2008 | Encounter | MED CTR LABORATORY | | | | | | [address] | | | | | | [place] | | | | | | [address] | | | | | | [phone] | | | +--------+ + + + [...] | | | | | [place] [address] | | | | | | [phone] | | | | | | | | +--------+ + + + + documented as of this encounter Visit Diagnoses Not on filedocumented in this encounter"
--- OUTSIDE RECORDS SUMMARY | ~2019-10-28 | XMS | Encounter Summary ---
Demographics + + + | Address | [address] | | | [place] [address] | + + + | Home Phone [...] | + + +---------+ + | Juancarlos Ewlls | ECON | Unknown | | + + +---------+ + | Yaneli Wells | ECON | Unknown | | + + +---------+ + Care Team Providers + +------+ + | Care Script Reader Name | Role | Phone | + +------+ + | Freddie Woodward MD | PCP | | + +------+ + Encounter Details +--------+ + + + + | Date | Type | Department | Care Team | Description | +--------+ + + + + | 11/20/ | Orders Only | [facility] | Denis [place], | | | 2017 | | [address] | [address] | | | | | [place], [place] | [address] | | | | | [address] | [place] [address] | | | | | [phone] | [phone] | | | | | | | [...] | | | | | [place] [address] | | | | | | [phone] | | | | | | | | +--------+ + + + + documented as of this encounter Procedures + +--------+ + + + | Procedure Name | Priori | Date/Time | Associated Diagnosis | Comments | | | ty | | | | + +--------+ + + + | VITAMIN D, | Routin | 11/20/2017 | | Results for this | | DEFICIENCY SCREEN | e | 3:32 PM | | procedure are in the | | (25-HYDROXY) | | PST | | results section. | + +--------+ + + + documented in this encounter Results Vitamin D, Deficiency Screen (25-Hydroxy) (11/20/2017 3:32 PM PST) + + + + + + | Component | Value | Ref Range | Performed | Pathologist | | | | | At | Signature | + + + + + + | Vit D, | 38Comment: <20 ng/mL | 30 - 150 ng/mL | EXTERNAL | | | 25-Hydroxy | Suggests deficiency | | LAB | | | | of 25-OH Vitamin D. | | | | | | 20-29 ng/mL | | | | | | Suggests a relative | | | | | | insufficiency of 25-OH | | | | | | Vitamin D. 30-150 ng/mL | | | | | | Suggests a sufficient | | | | | | level of 25-OH Vitamin | | | | | | D. >150 ng/mL | | | | | | Toxic level of 25-OH | | | | | | Vitamin D. Blood levels | | | | | | of 25 Hydroxy Vitamin D | | | | | | vary with the extent of | | | | | | sun exposure. Values | | | | | | tend to be highest in | | | | | | late summer and lowest | | | | | | in the spring. Values | | | | | | also tend to decrease | | | | | | with age, due to | | | | | | decreased precursor | | | | | | synthesis in the skin. | | | | + + + [...]
--- OUTSIDE RECORDS SUMMARY | ~2019-10-28 | XMS | Encounter Summary ---
Demographics + + + | Address | [address] | | | [place] [address] | + + + | Home Phone | | + + + | Preferred Language | Unknown | + + + | Marital Status | Single | + + + | Jehovah'S Witness Affiliation | 1013 | + + + [...] Team Providers + +------+ + | Care Solar System Installer Name | Role | Phone | + +------+ + | Freddie Woodward MD | PCP | | + +------+ + Encounter Details +--------+ + + + + | Date | Type | Department | Care Team | Description | +--------+ + + + + | 09/14/ | Hospital | [facility] | Conversion | | | 2013 | Encounter | [facility] | Transaction, | | | | | OUTPATIENT | Provider Unknown | | | | | PROCEDURES [address] | (Fax) | | | | | [place], [place] | | | | | | [address] | | | | | | [phone] | | | +--------+ + + + [...] | | | | | [place] [address] | | | | | | [phone] | | | | | | | | +--------+ + + + + documented as of this encounter Visit Diagnoses Not on filedocumented in this encounter"
--- OUTSIDE RECORDS SUMMARY | ~2019-10-28 | XMS | Encounter Summary ---
Demographics + + + | Address | [address] | | | [place] [address] | + + + | Home Phone [...] + + + | Author | [facility] | | | and [place] | + + + | Organization | [facility] | | | [...] Team Providers + +------+ + | Care Kier Pleater Name | Role | Phone | + +------+ + PCP | Unavailable | + +------+ + Encounter Details +--------+ + + + + | Date | Type | Department | Care Team | Description | +--------+ + + + + | 09/17/ | [facility] | [facility] | | | | 2005 | Encounter | MED CTR LABORATORY | | | | | | [address] | | | | | | [place] | | | | | | [address] | | | | | | [phone] | | | +--------+ + + + [...] | | | | | [place] [address] | | | | | | [phone] | | | | | | | | +--------+ + + + + documented as of this encounter Visit Diagnoses Not on filedocumented in this encounter"
--- OUTSIDE RECORDS SUMMARY | ~2019-10-28 | XMS | Clinical Summary ---
Demographics + + + | Address | [address] | | | [place] [address] | + + + | Home Phone | | + + + | Preferred Language | Unknown | + + + | Marital Status | | + + + | Quaker Affiliation | 1013 | + + + | Race | Unknown | + + + | Ethnic Group | Unknown | + + + Author + + + | Author | [facility] (Historical as of | | | 07-18-19) | + + + | Organization | [facility] (Historical as of | | | 07-18-19) | + + + | Address | [...] Team Providers + +------+ + | Care Bowling Ball Molder Name | Role | Phone | + +------+ + | Lucy Godinez PA-C | PP | Unavailable | + +------+ + Allergies + + [...] | + + + + + + Current Medications + + +---------+---------+------+------+-------+ | Prescription | Sig. | Disp. | Refills | Star | End | Statu | | | | | | t | Date | s | | | | | | Date | | | + + +---------+---------+------+------+-------+ | simvastatin | Take 20 mg by mouth | | | | | Activ | | (ZOCOR) 20 MG tablet | nightly. | | | | | e | + + +---------+---------+------+------+-------+ | omeprazole | Take 20 mg by mouth | | | | | Activ | | (PRILOSEC) 20 MG | 2 (two) times daily. | | | | | e | | capsule | | | | | | | + + +---------+---------+------+------+-------+ | ondansetron | Take 4 mg by mouth | | | | | Activ | | (ZOFRAN) 4 MG tablet | every 8 (eight) | | | | | e | | | hours as needed. | | | | | | + + +---------+---------+------+------+-------+ | Multiple Vitamin | Take by mouth | | | | | Activ | | (MULTI-VITAMIN PO) | daily. | | | | | e | + + +---------+---------+------+------+-------+ | levothyroxine | Take 50 mcg by mouth | | | | | Activ | | (SYNTHROID) 50 MCG | daily. | | | | | e | | tablet | | | | | | | + + +---------+---------+------+------+-------+ | fluticasone | 2 sprays by Each | | | | | Activ | | (FLONASE) 50 MCG/ACT | Nare route daily. | | | | | e | | nasal | | | | | | | + + +---------+---------+------+------+-------+ | cetirizine | Take 10 mg by mouth | | | | | Activ | | (ZYRTEC) 10 MG | daily. | | | | | e | | tablet | | | | | | | + + +---------+---------+------+------+-------+ | tamsulosin | Take 0.4 mg by mouth | | | | | Activ | | (FLOMAX) 0.4 MG | After dinner. | | | | | e | | capsule | | | | | | | + + +---------+---------+------+------+-------+ | estradiol | Place 1 patch onto | | | 02/2 | | Activ | | (VIVELLE-DOT/MINIVEL | the skin once a | | | 2/20 | | e | | LE) 0.05 MG/24HR | week. | | | 17 | | | + + +---------+---------+------+------+-------+ | | Take 2.5 mg by mouth | | | | | Activ | | medroxyPROGESTERone | daily. | | | | | e | | (PROVERA) 2.5 MG | | | | | | | | tablet | | | | | | | + + +---------+---------+------+------+-------+ | | Take 12.5 mg by | | | | | Activ | | hydrochlorothiazide | mouth daily. | | | | | e | | (HYDRODIURIL) 25 MG | | | | | | | | tablet | | | | | | | + + +---------+---------+------+------+-------+ | Melatonin 5 MG | Take 2 tablets by | | | | | Activ | | TABS | mouth nightly. | | | | | e | + + +---------+---------+------+------+-------+ | Probiotic Product | Take 1 capsule by | | | | | Activ | | (PROBIOTIC DAILY PO) | mouth nightly. | | | | | e | + + +---------+---------+------+------+-------+ | meloxicam (MOBIC) | Take 15 mg by mouth | | | | | Activ | | 15 MG tablet | daily. | | | | | e | + + +---------+---------+------+------+-------+ | Linaclotide | Take 24 mg by mouth | | | | | Activ | | (LINZESS PO) | daily. | | | | | e | + + +---------+---------+------+------+-------+ | prazosin | Take 6 mg by mouth | | | 05/1 | | Activ | | (MINIPRESS) 2 MG | nightly. | | | 0/20 | | e | | capsule | | | | 17 | | | + + +---------+---------+------+------+-------+ | gabapentin | Take 1 capsule by | 270 | 3 | 05/1 | | Activ | | (NEURONTIN) 300 MG | mouth 3 (three) | capsule | | 0/20 | | e | | capsule | times daily. | | | 17 | | | + + +---------+---------+------+------+-------+ | traMADol (ULTRAM) | Take 1 tablet by | 30 | | 05/1 | | Activ | | 50 MG tablet | mouth 3 (three) | tablet | | 0/20 | | e | | | times daily. 1-2 | | | 17 | | | | | tabs by mouth | | | | | | + + +---------+---------+------+------+-------+ | desvenlafaxine | Take 50 mg by mouth | | | | | Activ | | (PRISTIQ) 50 MG 24 | daily. | | | | | e | | hr tablet | | | | | | | + + +---------+---------+------+------+-------+ | Cholecalciferol | Take 1 capsule by | 12 | 0 | 12/2 | | Activ | | (VITAMIN D3) 15743 | mouth once a week. | capsule | | 0/20 | | e | | units CAPS | | | | 17 | | | + + +---------+---------+------+------+-------+ | amantadine | Take 1 capsule by | 180 | 3 | 08/0 | | Activ | | (SYMMETREL) 100 MG | mouth in morning and | capsule | | 8/20 | | e | | capsule | 1 mid-day as | | | 18 | | | | | directed. | | | | | | + + +---------+---------+------+------+-------+ | albuterol (PROAIR | Inhale 2 puffsonce a | | | 09/1 | | Activ | | HFA) 108 (90 Base) | day as needed for | | | 3/20 | | e | | MCG/ACT inhaler | Shortness of breath | | | 12 | | | + + +---------+---------+------+------+-------+ | SHINGRIX 50 | inject 0.5 | | 0 | 12/1 | | Activ | | MCG/0.5ML injection | milliliter | | | 3/20 | | e | | | intramuscularly | | | 18 | | | + + +---------+---------+------+------+-------+ | baclofen | Take 1 tablet by | 90 | 3 | 01/1 | | Activ | | (LIORESAL) 10 mg | mouth nightly. | tablet | | 6/20 | | e | | tabletIndications: | | | | 19 | | | | Muscle spasm | | | | | | | + + +---------+---------+------+------+-------+ | Cyanocobalamin | Take by mouth. | | | | | Activ | | (B-12 PO) | | | | | | e | + + +---------+---------+------+------+-------+ Active Problems + + + | Problem | Noted Date | + + + | Multiple sclerosis (HCC) | 07/17/2012 | + + + + + | Overview: Start Jessemateo: Oct 2012 | | | | JCV- Negative-Index value: 0.16 (10/2013) | | JCV antibody intermediate, Negative (04/06/14). | | JCV antibody Negative 10/12/14 (0.18). | | Negative 04/06/15 (0.18). | + + Family History + + +------+ [...] | Comments | + +------+--------+ + | Other | | | | + +------+--------+ + | Paternal Grandfather | | | | + +------+--------+ + Social History + + + +--------+ + | Tobacco Use | Types | Packs/Day | Years | Date | | | | | Used | | + + + +--------+ + | Former Smoker | Cigarettes | 0.25 | 10 | Quit: 12/02/2013 | + + + +--------+ + + +---+---+---+ | Smokeless Tobacco: | | | | | Never Used | | | | + +---+---+---+ + + | Tobacco Cessation: Counseling Given: Yes | + + + + +---------+ + | Alcohol Use | Drinks/We | oz/Week | Comments | | | ek | | | + + +---------+ + | No | | | | + + +---------+ + + + + | Sex Assigned at | Date Recorded | | | | + + + | Not on file | | + + + Last Filed Vital Signs + + + + | Vital Sign | Reading | Time Taken | + + + + | Blood Pressure | 126/80 | 07/07/2019 1:15 PM PDT | + + + + | Pulse | 87 | 07/07/2019 1:15 PM PDT | + + + + | Temperature | 36.4 C (97.6 F) | 07/07/2019 1:15 PM PDT | + + + + | Respiratory Rate | 18 | 07/07/2019 1:15 PM PDT | + + + + | Oxygen Saturation | 94% | 07/07/2019 1:15 PM PDT | + + + + | Inhaled Oxygen | - | - | | Concentration | | | + + + + | Weight | 85.2 kg (187 lb 12.8 | 07/07/2019 12:03 PM PDT | | | oz) | | + + + + | Height | 157.5 cm (5' 2") | 07/07/2019 12:03 PM PDT | + + + + | Body Mass Index | 34.35 | 07/07/2019 12:03 PM PDT | + + + + Plan of Treatment + + + + + | Health Maintenance | Due Date | Last Done | Comments | + + + + + | Vaccine: | | | | | Dtap/Tdap/Td (1 - | 2 | | | | Tdap) | | | | + + + + + | Cervical Cancer | | | | | Screening (Pap) | 3 | | | + + + + + | Breast Cancer | | | | | Screening | 3 | | | | (Mammogram) | | | | + + + + + | Colon Cancer | | | | | Screening | 3 | | | | (Colonoscopy) | | | | + + + + + | Vaccine: Zoster (1 | | | | | of 2) | 3 | | | + + + + + | Vaccine: Influenza | | | | | (#1) | 9 | | | + + + + + Results Not on filefrom Last 3 Months Insurance + +--------+ +------+-------+ + | Payer | Benefi | Subscriber | Type | Phone | Address | | | t Plan | ID | | | | | | / | | | | | | | Group | | | | | + +--------+ +------+-------+ + | MEDICARE | MEDICA | [id number] | | | [address] | | | RE | | | | [place] [id number] | | | IP-OP | | | | | + +--------+ +------+-------+ + | COMMERCIAL OTHER | COMMER | [id number] | | | | | | CIAL | | | | | | | GENERI | | | | | | | C PLAN | | | | | + +--------+ +------+-------+ + + +--------+ +--------+ + + | Guarantor Name | Accoun | Relation to | Date | Phone | Billing Address | | | t Type | Patient | of | | | | | | | | | | + +--------+ +--------+ + + | ROX LEE | Person | Self | [birth year] | Home: | | | | al/Fam | | 1965 | [phone] [place] | | | nick | | | [phone] | [address] | + +--------+ +--------+ + +
--- OUTSIDE RECORDS SUMMARY | ~2019-10-28 | XMS | Encounter Summary ---
Demographics + + + | Address | [address] | | | [place] [address] | + + + | Home Phone [...] Team Providers + +------+ + | Care Senior Category Manager Name | Role | Phone | + +------+ + PCP | Unavailable | + +------+ + Encounter Details +--------+ + + + + | Date | Type | Department | Care Team | Description | +--------+ + + + + | 10/13/ | [facility] | [facility] | | | | 2006 | Encounter | MED CTR XRAY [address] | | | | | | [address] | | | | | | [place] [address] | | | | | | [phone] | | | +--------+ + + + [...] | | | | | [place] [address] | | | | | | [phone] | | | | | | | | +--------+ + + + + documented as of this encounter Visit Diagnoses Not on filedocumented in this encounter"
--- OUTSIDE RECORDS SUMMARY | ~2019-10-28 | XMS | Encounter Summary ---
Demographics + + + | Address | [address] | | | [place] [address] | + + + | Home Phone | | + + + | Preferred Language | Unknown | + + + | Marital Status | Single | + + + | Pentecostalism Affiliation | 1013 | + + + [...] Providers + +------+ + | Care Director Of Acquisitions Name | Role | Phone | + +------+ + | Freddie Woodward MD | PCP | | + +------+ + Encounter Details +--------+ + + + + | Date | Type | Department | Care Team | Description | +--------+ + + + + | 10/12/ | Orders Only | [facility] | Denis Stokes, | | | 2013 | | NEUROLOGY [address] | PA-C [address] | | | | | [address] | DRIVE [facility] [address] | | | | | [place], [place] | [place] [address] | | | | | [address] | [phone] | | | | | [phone] | | | +--------+ + + + [...] D | | | | | | [place] [address] | | | | | | [phone] | | | | | | | [...] OF JCV-SPECIFIC ANTIBODIES. Specimen: | | | [id number] Requisition: [id number] | | + + + + +---------+ + + | Performing | Address | City/State/Zipcode | Phone Number | | Organization | | | | + +---------+ + + | EXTERNAL LAB | | | | + +---------+ + + documented in this encounter Visit Diagnoses Not on filedocumented in this encounter"
--- OUTSIDE RECORDS SUMMARY | ~2019-10-28 | XMS | Encounter Summary ---
Demographics + + + | Address | [address] | | | [place] [address] | + + + | Home Phone [...] Author + + + | Author | [facility] | | | and [place] | + + + | Organization | [facility] | | [...] Team Providers + +------+ + | Care Cytotechnologist Supervisor Name | Role | Phone | + +------+ + | Freddie Woodward MD | PCP | | + +------+ + Encounter Details +--------+ + + + + | Date | Type | Department | Care Team | Description | +--------+ + + + + | 06/23/ | Hospital | [facility] | Conversion | | | 2012 | Encounter | [facility] | Transaction, | | | | | OUTPATIENT | Provider Unknown | | | | | PROCEDURES [address] | | [address] | (Fax) | | | | | [place], [place] | | | | | | [address] | | | | | | [phone] | | | +--------+ + + + [...] Stokes PA-C Service: (none) Author Type: Physician Farmworker - Certified Filed: 06/23/13 4054 Date of Service: 06/23/131311 Status: Signed Embedded Software Design Engineer: Denis Stokes PA-C (Physician Farmworker - Certified) The patient was seen today [...] her CD with previous brain MRI at [facility] to [facility] radiology so that they may scan [...] | | | | | [place] [address] | | | | | | [phone] | | | | | | | | +--------+ + + + + documented as of this encounter Visit Diagnoses Not on filedocumented in this encounter"
--- OUTSIDE RECORDS SUMMARY | ~2019-10-28 | XMS | Encounter Summary ---
Demographics + + + | Address | [address] | | | [place] [address] | + + + | Home Phone | | + + + | Preferred Language | Unknown | + + + | Marital Status | Single | + + + | Worship Affiliation | 1013 | + + + [...] Team Providers + +------+ + | Care Health Assessment And Treatment Teacher Name | Role | Phone | [...] [address] | | | | | [place], [place] | [address] | | | | | [address] | [place] [address] | | | | | [phone] | [phone] | | | | | | | [...] | | | | | [place] [address] | | | | | | [phone] | | | | | | | [...]
--- OUTSIDE RECORDS SUMMARY | ~2019-10-28 | XMS | Encounter Summary ---
Demographics + + + | Address | [address] | | | [place] [address] | + + + | Home Phone | | + + + | Preferred Language | Unknown | + + + | Marital Status | Single | + + + | Sabianist Affiliation | Unknown | + + + | Race | White | + + + | Ethnic Group | Not or | + + + Author + + + | Author | [facility] | + + + | Organization | [facility] | + + + | Address | Unknown | + + + | Phone | Unavailable | + + + Support + + +---------+ + | Name | Relationship | Address | Phone | + + +---------+ + | Kristina Dill | ECON | Unknown | Unavailable | + + +---------+ + Care Team Providers + +------+ + | Care Front End Architect Name | Role | Phone | + +------+ + | Freddie Woodward MD | PCP | | + +------+ + Reason for Visit + + + | Reason | Comments | + + + | New Patient Visit | | + + + Consultation (Routine) +--------+--------+ + + + + | Status | Reason | Specialty | Diagnoses / | Referred By | Referred To | | | | | Procedures | Contact | Contact | +--------+--------+ + + + + | Closed | | Gastroenterol | Diagnoses | Crissy, | Sam, | | | | ogy | Abdominal | Freddie Chen MD | Ceferino | | | | | pain | [address] | MD Ted | | | | | Procedures | [place] | [address] | | | | | CONSULT TO | [place] | Ave | | | | | GASTROENTERO | [address] | [place], [place] | | | | | [place] | Phone: | [address] | | | | | | [phone] | Phone: | | | | | | Fax: | [phone] | | | | | | [phone] | Fax: | | | | | | | [phone] | +--------+--------+ + + + + Encounter Details +--------+---------+ + + + | Date | Type | Department | Care Team | Description | +--------+---------+ + + + | 11/09/ | Office | Digestive Health | Ceferino Vargas | IBS (irritable bowel | | 2012 | Visit | Center at [facility] [address] | [address] | syndrome) (Primary | | | | [address] | [address] [place], | Dx); Abnormal LFTs | | | | Mailcode: [place] | [place] [address] | (liver function | | | | for Health and | [phone] | tests); Abnormal | | | | Healing, [address] | | magnetic resonance | | | | [place], [place] | | imaging of liver | | | | [address] | | | | | | [phone] | | | +--------+---------+ + + + Social History + +-------+ [...] + documented in this encounter Progress Notes Ceferino Vargas MD - 11/09/2013 2:14 PM PSTFormatting of this note might be diffe rent from the original. Yane Lama is an 48 y.o. female who is referred by Freddie Woodward for evaluation and manag ement of Abdominal pain and abnormal liver imaging The history is as follows:Abdominal pain and altered bowels since childhood with alternatin g loose stools and constipation. Also prior hx biliary pancreatitis by chart, Rxed with ERCP in appx 2006. This summer developed looser stools and worsening lower abdominal crampy pain with out radiation other than into groin. However, over the last 2 months has developed con stipation and lower abdominal cramps relieved with BMS. She has no upper pain, no RUQ pain a nd no radiation indicative of a pancreatic biliary source. However, because of very low int ermittent elevations in transaminase (normal bili and alk phos) she had a CT/MR that was marii d as intrahepatic strictures. Those studies were not sent with her or in advance, but are in consistant with her pain location (infraumbilical) and associated with BMS or LTs. Weight de creased this summer but now increasing again (200-180-189). Apetite not good but stable. No extraintestinal sxs No current outpatient prescriptions on file. No current facility-administered medications for this visit. 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 Eyes: Non icteric Neck: No thyroid enlargement or adenopathy Cardiovascular: Normal Pulmonary: Lungs are clear to auscultation bilaterally Lymphatic: No supraclavicular, umbilical or inguinal adenopathy noted Musculoskeletal: No edema, erythema or joint abnormality Skin: No rash Neurological: Normal Psychological: Alert and oriented, good historian Abdomen: Bowel sounds present, no masses, organomegally appreciated. Diffusely tender espec ially over sigmoid colon in LLQ Data reviewed:Prior CT/MR, liver tests Impression/Plan: 1) She has life-long IBS with her lower abdominal pain and altered bowel habits typical of this. Currently she is in a "constipation phase with clear infraumbilical pain relieved with BM. She should be offered a bowel prep then maintained on an osmotic (e.g. Miralax) and if needed stimulant regimen once her colon is evacuated. 2) Minimal transient elevation in AST likely related to fatty liver. Her MRCP does not make sense given her normal alk phos, absence of sxs and no prior liver disease. At this time I would suggest repeating the MR at 6 months and if stable just monitor liver tests once-twice yearly documented in this encounter Plan of Treatment Not on filedocumented as of this encounter Visit Diagnoses + + | Diagnosis | + + | IBS (irritable bowel syndrome) - Primary Irritable bowel syndrome | + + | Abnormal LFTs (liver function tests) Other abnormal blood chemistry | + + | Abnormal magnetic resonance imaging of liver Nonspecific (abnormal) findings on | | radiological and other examination of biliary tract | + + documented in this encounter
--- OUTSIDE RECORDS SUMMARY | ~2019-10-28 | XMS | Encounter Summary ---
Demographics + + + | Address | [address] | | | [place] [address] | + + + | Home Phone | | + + + | Preferred Language | Unknown | + + + | Marital Status | Single | + + + | Jain Affiliation | 1013 | + + + [...] Team Providers + +------+ + | Care Warehouse Incentive Selector Name | Role | Phone | + [...] | | | | [facility] | [address] | | | | | level raised | [place], | [place], | | | | | Abdominal | [address] | [place] | | | | | pain | [address], [place] | [address] | | | | | Pancreatic | [address] [place] | Phone: | | | | | ductal | [place], [place] | [phone] | | | | | abnormality | [address] | Fax: | | | | | Procedures | Phone: | [phone] | | | | | MRI Abdomen | [phone] | | | | | | wo Contrast | Fax: | | | | | | | [phone] | | +--------+--------+ + + + + Encounter Details +--------+ + + + + | Date | Type | Department | Care Team | Description | +--------+ + + + + | 07/17/ | Hospital | [facility] | [facility], | ALT (SGPT) level | | 2013 | Encounter | MED CTR XRAY [address] | [place], [address] | raised; Abdominal | | | | [address] [place] | [place], [place] [address] | pain; Pancreatic | | | | [place] [address] | [place], [place] | ductal abnormality | | | | [phone] | [address] | | | | | | | [...] D | | | | | | [place] [address] | | | | | | [phone] | | | | | | | [...] Performed At | + + + | [facility] | [place] | | Department [address] [facility] | [facility] | | [ rep [address]] [ rep [facility] | | st zip] Signed | - IMAGING | | | | | Patient Name: ROX LEE Physician: | | | BRID. : 1965 Age: 48 Sex: F Unit #: [id number] | | | Exam Date: 07/17/13 Location[place] [facility] [place] | | | Report #: [id number] Page: | | | %(RAD)RES..mtdd.print.filter("pg") of %(RAD) | | | RES..mtdd.print.filter("tpg") | | | | | | Accession Number: [id number] | | | CT OF ABDOMEN WITHOUT [...] | | | Transcribed Date/Time: 07/17/2013 10:02 Lift Mechanic: | | | <<Signature on File>> | | | Kaz | | | Elaine Forman MD07/18/13 0958 <Electronically signed by Kaz Henry | | | Dasia MILLS> Kaz Forman MD 07/17/13 0930 | | | Lift Mechanic: AudioBoo [id number]/16/13 1002 | | | SOREN Marie | | + + + + + + + + | Performing | Address | City/State/Zipcode | Phone Number | | Organization | | | | + + + + + | [address] | [address] | [place] | [phone] | | [facility] | | [address] | | | - IMAGING | | [...]
--- OUTSIDE RECORDS SUMMARY | ~2019-10-28 | XMS | Encounter Summary ---
Demographics + + + | Address | [address] | | | [place] [address] | + + + | Home Phone [...] + + | Author | [facility] | | | and [place] | + + + | Organization | [facility] | | | [...] Team Providers + +------+ + | Care Cashier Name | Role | Phone | + +------+ + PCP | Unavailable | + +------+ + Encounter Details +--------+ + + + + | Date | Type | Department | Care Team | Description | +--------+ + + + + | 04/15/ | [facility] | [facility] | | | | 1999 - | Encounter | MED CTR GENERIC PSY | | | | | | CONV DEPT [address] | | | | 04/18/ | | [address], | | | | 1999 | | [place] [address] | | | | | | [phone] | | | +--------+ + + + [...] | | | | | [place] [address] | | | | | | [phone] | | | | | | | | +--------+ + + + + documented as of this encounter Visit Diagnoses Not on filedocumented in this encounter"
--- OUTSIDE RECORDS SUMMARY | ~2019-10-28 | XMS | Encounter Summary ---
Demographics + + + | Address | [address] | | | [place] [address] | + + + | Home Phone | | + + + | Preferred Language | Unknown | + + + | Marital Status | Single | + + + | Lutheran Affiliation | 1013 | + + + | Race | Unknown | + + + | Ethnic Group | Unknown | + + + Author + + + | Author | [facility] | | | and [place] | + + + | Organization | [facility] | [...] Team Providers + +------+ + | Care Body Corporate Manager Name | Role | Phone | + +------+ + PCP | Unavailable | + +------+ + Encounter Details +--------+ + + + + | Date | Type | Department | Care Team | Description | +--------+ + + + + | 08/02/ | [facility] | [facility] | | | | 1998 | Encounter | MED CTR XRAY [address] | | | | | | [address] | | | | | | [place] [address] | | | | | | [phone] | | | +--------+ + + + [...] | | | | | [place] [address] | | | | | | [phone] | | | | | | | | +--------+ + + + + documented as of this encounter Visit Diagnoses Not on filedocumented in this encounter"
--- OUTSIDE RECORDS SUMMARY | ~2019-10-28 | XMS | Encounter Summary ---
Demographics + + + | Address | [address] | | | [place] [address] | + + + | Home Phone [...] Team Providers + +------+ + | Care Assistant Media Planner Name | Role | Phone | + +------+ + | Freddie Woodward MD | PCP | | + +------+ + Encounter Details +--------+ + + + + | Date | Type | Department | Care Team | Description | +--------+ + + + + | 02/09/ | Hospital | [facility] | Conversion | | | 2014 | Encounter | [facility] | Transaction, | | | | | OUTPATIENT | Provider Unknown | | | | | PROCEDURES [address] | | | | | [address] | (Fax) | | | | | [place], [place] | | | | | | [address] | | | | | | [phone] | | | +--------+ + + + [...] | | | | | [place] [address] | | | | | | [phone] | | | | | | | | +--------+ + + + + documented as of this encounter Visit Diagnoses Not on filedocumented in this encounter"
--- OUTSIDE RECORDS SUMMARY | ~2019-10-28 | XMS | Encounter Summary ---
Demographics + + + | Address | [address] | | | [place] [address] | + + + | Home Phone | | + + + | Preferred Language | Unknown | + + + | Marital Status | Single | + + + | Adventism Affiliation | 1013 | + + + | Race | Unknown | + + + | Ethnic Group | Unknown | + + + Author + + + | Author | [facility] | | | and [place] | + + + | Organization | [facility] | | | [...] Team Providers + +------+ + | Care Therapeutic Case Manager Name | Role | Phone | [...] | Radiology | Diagnoses | Divya, | [facility] | | | | | Multiple | WAN [address] | [address] | | | | | sclerosis | [address] | | | | | (HCC) | [address] | [place], [place] | | | | | Procedures | DRIVE SU[address] | [address] | | | | | MRI Brain wo | D | Phone: | | | | | Contrast | [place], | [phone] | | | | | | [place] [address] | Fax: | | | | | | Phone: | [phone] | | | | | | [phone] | | | | | | | Fax: | | | | | | | [phone] | | +--------+--------+ + + + + Reason for Visit Diagnostic/Screening (Routine) +--------+--------+ + + + + | Status | Reason | Specialty | Diagnoses / | Referred By | Referred To | | | | | Procedures | Contact | Contact | +--------+--------+ + + + + | Closed | | Radiology | Diagnoses | Divya, | [facility] | | | | | Multiple | WAN Barrios | [address] | | | | | sclerosis | [address] | | | | | (HCC) | [address] | [place], [place] | | | | | Procedures | DRIVE [address] | [address] | | | | | MRI Brain wo | D | Phone: | | | | | Contrast | [place], | [phone] | | | | | | [place] [address] | Fax: | | | | | | Phone: | [phone] | | | | | | [phone] | | | | | | | Fax: | | | | | | | [phone] | | +--------+--------+ + + + + Encounter Details +--------+ + + + + | Date | Type | Department | Care Team | Description | +--------+ + + + + | 09/29/ | Hospital | [facility] | Denis Stokes, | Multiple sclerosis | | 2019 | Encounter | [facility] MRI [address] | (HCC) | | | | [address] | [address] | | | | | [place], [place] | [place] [address] | | | | | [address] | [phone] | | | | | [phone] | | | +--------+ + + + [...] | | | | | [place] [address] | | | | | | [phone] | | | | | | | [...] + + | Performing | Address | City/[facility] | Phone Number | | Organization | | | | + +---------+ + + | [facility] | | | | + +---------+ + + documented in this encounter Visit Diagnoses + + | Diagnosis | + + | Multiple sclerosis (HCC) Multiple sclerosis | + + documented in this encounter"
--- OUTSIDE RECORDS SUMMARY | ~2019-10-28 | XMS | Encounter Summary ---
Demographics + + + | Address | [address] | | | [place] [address] | + + + | Home Phone | | + + + | Preferred Language | Unknown | + + + | Marital Status | Single | + + + | Episcopalian Affiliation | 1013 | + + + | Race | Unknown | + + + | Ethnic Group | Unknown | + + + Author + + + | Author | [facility] | | | and [place] | + + + | Organization | [facility] | | [...] Team Providers + +------+ + | Care Stack Supervisor Name | Role | Phone | [...] [address] | | | | | [place] | D | D [place], | | | | | [address] | [place], | [place] [address] | | | | | INJECTION, 1 | [place] [address] | Phone: | | | | | [place] | Phone: | [phone] | | | | | CHEMOTHER, | [phone] | Fax: | | | | | IV INFUSION, | Fax: | [phone] | | | | | 1 HR | [phone] | | + +--------+ + + + + Encounter Details +--------+ + + + + | Date | Type | Department | Care Team | Description | +--------+ + + + + | 09/29/ | Clinical | [facility] | | MULTIPLE SCLEROSIS | | 2019 | Support | NEUROLOGY [address] | | (Primary Dx) | | | | [address] | | | | | | [facility] [place] | | | | | | [address] | | | | | | [phone] | | | +--------+ + + + [...] Beatris Tejeda RN - 09/29/2019 1:45 PM [id number] Pt presents for IV Tysabri infusion. Pt i dentification verified and patient taken to Infusion [place] [facility]. Informed consent was signed and the [...] a rate of 115 mL/hr utilizing an [employer] IV pump. Primary solution is 100 mL [...] [address] | | | | | | [employer] [address] | | | | | | [place] [address] | | | | | | [phone] | | | | | | | [...]
--- OUTSIDE RECORDS SUMMARY | ~2019-10-28 | XMS | Encounter Summary ---
Demographics + + + | Address | [address] | | | [place] [address] | + + + | Home Phone | | + + + | Preferred Language | Unknown | + + + | Marital Status | Single | + + + | Episcopal Affiliation | 1013 | + + + [...] Team Providers + +------+ + | Care Berry Grower Name | Role | Phone | + +------+ + | Freddie Woodward MD | PCP | | + +------+ + Encounter Details +--------+ + + + + | Date | Type | Department | Care Team | Description | +--------+ + + + + | 04/06/ | Hospital | [facility] | Conversion | | | 2014 | Encounter | [facility] | Transaction, | | | | | OUTPATIENT | Provider Unknown | | | | | PROCEDURES [address] | | [address] | (Fax) | | | | | [place], [place] | | | | | | [address] | | | | | | [phone] | | | +--------+ + + + [...] | | | | | [place] [address] | | | | | | [phone] | | | | | | | | +--------+ + + + + documented as of this encounter Visit Diagnoses Not on filedocumented in this encounter"
--- OUTSIDE RECORDS SUMMARY | ~2019-10-28 | XMS | Encounter Summary ---
Demographics + + + | Address | [address] | | | [place] [address] | + + + | Home Phone [...] Team Providers + +------+ + | Care Mat Weaver Name | Role | Phone | + +------+ + PCP | Unavailable | + +------+ + Encounter Details +--------+ + + + + | Date | Type | Department | Care Team | Description | +--------+ + + + + | 04/26/ | [facility] | [facility] | | | | 1999 | Encounter | MED CTR LABORATORY | | | | | | [address] | | | | | | [place] | | | | | | [address] | | | | | | [phone] | | | +--------+ + + + [...] | | | | | [place] [address] | | | | | | [phone] | | | | | | | | +--------+ + + + + documented as of this encounter Visit Diagnoses Not on filedocumented in this encounter"
--- OUTSIDE RECORDS SUMMARY | ~2019-10-28 | XMS | Encounter Summary ---
Demographics + + + | Address | [address] | | | [place] [address] | + + + | Home Phone [...] Author + + + | Author | [facility] | | | and [place] | + + + | Organization | [facility] [...] Team Providers + +------+ + | Care Ct Mri Technologist Name | Role | Phone | + +------+ + PCP | Unavailable | + +------+ + Encounter Details +--------+ + + + + | Date | Type | Department | Care Team | Description | +--------+ + + + + | 04/11/ | [facility] | [facility] | | | | 1999 | Encounter | MED CTR GENERIC OP | | | | | | CONV DEPT [address] | | | | | | [place], | | | | | | [place] [address] | | | | | | [phone] | | | +--------+ + + + [...] | | | | | [place] [address] | | | | | | [phone] | | | | | | | | +--------+ + + + + documented as of this encounter Visit Diagnoses Not on filedocumented in this encounter"
--- OUTSIDE RECORDS SUMMARY | ~2019-10-28 | XMS | Encounter Summary ---
Demographics + + + | Address | [address] | | | [place] [address] | + + + | Home Phone | | + + + | Preferred Language | Unknown | + + + | Marital Status | Single | + + + | Uatsdin Affiliation | 1013 | + + + [...] Team Providers + +------+ + | Care Patient Care Technician Name | Role | Phone | + +------+ + | Freddie Woodward MD | PCP | | + +------+ + Encounter Details +--------+ + + + + | Date | Type | Department | Care Team | Description | +--------+ + + + + | 08/18/ | Hospital | [facility] | Conversion | | | 2012 | Encounter | [facility] | Transaction, | | | | | OUTPATIENT | Provider Unknown | | | | | PROCEDURES [address] | | [address] | (Fax) | | | | | [place], [place] | | | | | | [address] | | | | | | [phone] | | | +--------+ + + + [...] | | | | | [place] [address] | | | | | | [phone] | | | | | | | | +--------+ + + + + documented as of this encounter Visit Diagnoses Not on filedocumented in this encounter"
--- OUTSIDE RECORDS SUMMARY | ~2019-10-28 | XMS | Encounter Summary ---
Demographics + + + | Address | [address] | | | [place] [address] | + + + | Home Phone [...] + + + | Author | [facility] | | | and [place] | + + + | Organization | [facility] | | [...] Team Providers + +------+ + | Care Alternative Energy Engineer Name | Role | Phone | + +------+ + PCP | Unavailable | + +------+ + Encounter Details +--------+ + + + + | Date | Type | Department | Care Team | Description | +--------+ + + + + | 01/26/ | [facility] | [facility] | | | | 2000 | Encounter | MED CTR EMERGENCY | | | | | | CENTER [address] | | | | | | [place], [place] | | | | | | [address] | | | | | | [phone] | | | +--------+ + + + [...] | | | | | [place] [address] | | | | | | [phone] | | | | | | | | +--------+ + + + + documented as of this encounter Visit Diagnoses Not on filedocumented in this encounter"
--- OUTSIDE RECORDS SUMMARY | ~2019-10-28 | XMS | Encounter Summary ---
Demographics + + + | Address | [address] | | | [place] [address] | + + + | Home Phone [...] Team Providers + +------+ + | Care Tanbark Laborer Name | Role | Phone | + +------+ + PCP | Unavailable | + +------+ + Encounter Details +--------+ + + + + | Date | Type | Department | Care Team | Description | +--------+ + + + + | 04/01/ | [facility] | [facility] | | | | 2003 | Encounter | MED CTR LABORATORY | | | | | | [address] | | | | | | [place] | | | | | | [address] | | | | | | [phone] | | | +--------+ + + + [...] | | | | | [place] [address] | | | | | | [phone] | | | | | | | | +--------+ + + + + documented as of this encounter Visit Diagnoses Not on filedocumented in this encounter"
--- OUTSIDE RECORDS SUMMARY | ~2019-10-28 | XMS | Encounter Summary ---
Demographics + + + | Address | [address] | | | [place] [address] | + + + | Home Phone | | + + + | Preferred Language | Unknown | + + + | Marital Status | Single | + + + | Restoration Affiliation | 1013 | + + + | Race | Unknown | + + + | Ethnic Group | Unknown | + + + Author + + + | Author | [facility] | | | and [place] | + + + | Organization | [facility] | | | and [...] Team Providers + +------+ + | Care Regulatory Affairs Specialist Name | Role | Phone | + +------+ + PCP | Unavailable | + +------+ + Encounter Details +--------+ + + + + | Date | Type | Department | Care Team | Description | +--------+ + + + + | 10/22/ | [facility] | [facility] | | | | 2005 | Encounter | MED CTR XRAY [address] | | | | | | [address] | | | | | | [place] [address] | | | | | | [phone] | | | +--------+ + + + [...] | | | | | [place] [address] | | | | | | [phone] | | | | | | | | +--------+ + + + + documented as of this encounter Visit Diagnoses Not on filedocumented in this encounter"
--- OUTSIDE RECORDS SUMMARY | ~2019-10-28 | XMS | Encounter Summary ---
Demographics + + + | Address | [address] | | | [place] [address] | + + + | Home Phone [...] Team Providers + +------+ + | Care Cooking Instructor Name | Role | Phone | + +------+ + | Freddie Woodward MD | PCP | | + +------+ + Encounter Details +--------+ + + + + | Date | Type | Department | Care Team | Description | +--------+ + + + + | 08/18/ | Hospital | [facility] | Conversion | | | 2012 | Encounter | [facility] | Transaction, | | | | | OUTPATIENT | Provider Unknown | | | | | PROCEDURES [address] | | [address] | (Fax) | | | | | [place], [place] | | | | | | [address] | | | | | | [phone] | | | +--------+ + + + [...] | | | | | [place] [address] | | | | | | [phone] | | | | | | | | +--------+ + + + + documented as of this encounter Visit Diagnoses Not on filedocumented in this encounter"
--- OUTSIDE RECORDS SUMMARY | ~2019-10-28 | XMS | Encounter Summary ---
Demographics + + + | Address | [address] | | | [place] [address] | + + + | Home Phone [...] + + + | Author | [facility] | | | and [place] | + + + | Organization | [facility] | | | and [...] Team Providers + +------+ + | Care Restaurant Server Name | Role | Phone | + +------+ + PCP | Unavailable | + +------+ + Encounter Details +--------+ + + + + | Date | Type | Department | Care Team | Description | +--------+ + + + + | 01/31/ | [facility] | [facility] | | | | 2008 | Encounter | MED CTR XRAY [address] | | | | | [address] | | | | | | [place] [address] | | | | | | [phone] | | | +--------+ + + + [...] | | | | | [place] [address] | | | | | | [phone] | | | | | | | | +--------+ + + + + documented as of this encounter Visit Diagnoses Not on filedocumented in this encounter"
--- OUTSIDE RECORDS SUMMARY | ~2019-10-28 | XMS | Encounter Summary ---
Demographics + + + | Address | [address] | | | [place] [address] | + + + | Home Phone [...] + + + | Author | [facility] | | | and [place] | + + + | Organization | [facility] | | | and [...] Team Providers + +------+ + | Care Executive Assistant To General Counsel Name | Role | Phone | + [...] [address] | | | | | [place], [place] | [address] | | | | | [address] | [place] [address] | | | | | [phone] | [phone] | | | | | | | [...] [address] | | | | | | [address] | | | | | | [place] [address] | | | | | | [phone] | | | | | | | [...] | | | | using the [facility] | | | | | | [...]
--- OUTSIDE RECORDS SUMMARY | ~2019-10-28 | XMS | Encounter Summary ---
Demographics + + + | Address | [address] | | | [place] [address] | + + + | Home Phone [...] Team Providers + +------+ + | Care News Cameraman Name | Role | Phone | + [...] + + | 07/21/ | Refill | [facility] | Denis Stokes, | Medication Refill | | 2019 | | NEUROLOGY [address] | [address] | | | | | [address] | [address]IVE [facility] [address] | | | | | [place], [place] | [place] [address] | | | | | [address] | [phone] | | | | | [phone] | | | +--------+--------+ + + + [...] | | | | | [place] [address] | | | | | | [phone] | | | | | | | | +--------+ + + + + documented as of this encounter Visit Diagnoses Not on filedocumented in this encounter"
--- OUTSIDE RECORDS SUMMARY | ~2019-10-28 | XMS | Encounter Summary ---
Demographics + + + | Address | [address] | | | [place] [address] | + + + | Home Phone | | + + + | Preferred Language | Unknown | + + + | Marital Status | Single | + + + | Muslim Affiliation | 1013 | + + + | Race | Unknown | + + + | Ethnic Group | Unknown | + + + Author + + + | Author | [facility] | | | and [place] | + + + | Organization | [facility] | | | [...] Providers + +------+ + | Care Director Environmental Name | Role | Phone | + +------+ + PCP | Unavailable | + +------+ + Encounter Details +--------+ + + + + | Date | Type | Department | Care Team | Description | +--------+ + + + + | 04/11/ | [facility] | [facility] | | | | 1999 | Encounter | MED CTR GENERIC OP | | | | | | CONV DEPT [address] | | | | | | [place], | | | | | | [place] [address] | | | | | | [phone] | | | +--------+ + + + [...] | | | | | [place] [address] | | | | | | [phone] | | | | | | | | +--------+ + + + + documented as of this encounter Visit Diagnoses Not on filedocumented in this encounter"
--- OUTSIDE RECORDS SUMMARY | ~2019-10-28 | XMS | Encounter Summary ---
Demographics + + + | Address | [address] | | | [place] [address] | + + + | Home Phone [...] + + + | Author | [facility] | | | and [place] | + + + | Organization | [facility] | [...] Providers + +------+ + | Care Manager Home Improvement Name | Role | Phone | + +------+ + | Freddie Woodward MD | PCP | | + +------+ + Encounter Details +--------+ + + + + | Date | Type | Department | Care Team | Description | +--------+ + + + + | 12/15/ | Hospital | [facility] | Conversion | | | 2013 | Encounter | [facility] | Transaction, | | | | | OUTPATIENT | Provider Unknown | | | | | PROCEDURES [address] | | | | [address] | (Fax) | | | | | [place], [place] | | | | | | [address] | | | | | | [phone] | | | +--------+ + + + [...] | | | | | [place] [address] | | | | | | [phone] | | | | | | | | +--------+ + + + + documented as of this encounter Visit Diagnoses Not on filedocumented in this encounter"
--- OUTSIDE RECORDS SUMMARY | ~2019-10-28 | XMS | Encounter Summary ---
Demographics + + + | Address | [address] | | | [place] [address] | + + + | Home Phone [...] | + + +---------+ + | Juancarlos Wlels | ECON | Unknown | | + + +---------+ + | Yaneli Wells | ECON | Unknown | | + + +---------+ + Care Team Providers + +------+ + | Care Hand Tapper Name | Role | Phone | + +------+ + PCP | Unavailable | + +------+ + Encounter Details +--------+ + + + + | Date | Type | Department | Care Team | Description | +--------+ + + + + | 08/15/ | [facility] | [facility] | | | | 1998 - | Encounter | MED CTR [place] | | | | | | [facility] [address] | | | | 08/16/ | | [address], | | | | 2000 | | [place] [address] | | | | | | [phone] | | | +--------+ + + + [...] | | | | | [place] [address] | | | | | | [phone] | | | | | | | | +--------+ + + + + documented as of this encounter Visit Diagnoses Not on filedocumented in this encounter"
--- OUTSIDE RECORDS SUMMARY | ~2019-10-28 | XMS | Encounter Summary ---
Demographics + + + | Address | [address] | | | [place] [address] | + + + | Home Phone [...] Team Providers + +------+ + | Care Weigher Alloy Name | Role | Phone | + [...] [address] | | | | | [place] | D | D [place], | | | | | [address] | [place], | [place] [address] | | | | | INJECTION, 1 | [place] [address] | Phone: | | | | | [place] | Phone: | [phone] | | | | | CHEMOTHER, | [phone] | Fax: | | | | | IV INFUSION, | Fax: | [phone] | | | | | 1 HR | [phone] | | + +--------+ + + + + Encounter Details +--------+ + + + + | Date | Type | Department | Care Team | Description | +--------+ + + + + | 10/27/ | Clinical | [facility] | | MULTIPLE SCLEROSIS | | 2019 | Support | NEUROLOGY [address] | | (Primary Dx); | | | | [address] | | Encounter for | | | | [place] | | medication | | | | [address] | | monitoring | | | | [phone] | | | +--------+ + + + [...] D | | | | | | [place] [address] | | | | | | [phone] | | | | | | | | +--------+ + + + + + +------+--------+ + + | Name | Type | Priori | Associated Diagnoses | Date/Time | | | | ty | | | + +------+--------+ + + | ARMANDO Virus Antbody | Lab | Routin | MULTIPLE SCLEROSIS | 10/27/2019 7:42 PM | | W/Index, Qual, | | e | Encounter for | PST | | Reflex | | | medication | | | | | | monitoring | | + +------+--------+ + + + +------+--------+ + + | Name | Type | Priori | Associated Diagnoses | Order Schedule | | | | ty | | | + +------+--------+ + + | ARMANDO Virus Antbody | Lab | Routin | MULTIPLE SCLEROSIS | 1 Occurrences | | W/Index, Qual, | | e | Encounter for | starting 10/27/2019 | | Reflex | | | medication | until 10/27/2020 | | | | | monitoring | | + +------+--------+ + + documented as of this encounter Visit Diagnoses + + | Diagnosis | + + | MULTIPLE SCLEROSIS - Primary Multiple sclerosis | + + | Encounter for medication monitoring Encounter for therapeutic drug monitoring | + + documented in this encounter Administered Medications + +--------+---------+------+------+------+ | Medication Order | MAR | Action | Dose | Rate | Site | | | Action | Date | | | | + +--------+---------+------+------+------+ + +---+ | sodium chloride 0.9% (NS) | | | infusion at 100 mL/hr, | | | Intravenous, FIXED VOLUME (see | | | admin instruction), Starting Tubecky | | | 10/27/19 at 1430 | | + +---+ | | | + +---+ documented in this encounter"
--- OUTSIDE RECORDS SUMMARY | ~2019-10-28 | XMS | Encounter Summary ---
Demographics + + + | Address | [address] | | | [place] [address] | + + + | Home Phone | | + + + | Preferred Language | Unknown | + + + | Marital Status | Single | + + + | Quaker Affiliation | 1013 | + + + | Race | Unknown | + + + | Ethnic Group | Unknown | + + + Author + + + | Author | [facility] | | | and [place] | + + + | Organization | [facility] | | | [...] Providers + +------+ + | Care Chemical Milling Processor Name | Role | Phone | + [...] Description | +--------+--------+ + + + | 09/07/ | Refill | [facility] | Denis Stokes, | Medication Refill | | 2019 | | NEUROLOGY [address] | PA-Jacqueline [address] | | | | | [address] | [address]IVE [facility] [address] | | | | | [place], [place] | [place] [address] | | | | | [address] | [phone] | | | | | [phone] | | | +--------+--------+ + + + [...] | | | | | [place] [address] | | | | | | [phone] | | | | | | | | +--------+ + + + + documented as of this encounter Visit Diagnoses Not on filedocumented in this encounter"
--- OUTSIDE RECORDS SUMMARY | ~2019-10-28 | XMS | Encounter Summary ---
Demographics + + + | Address | [address] | | | [place] [address] | + + + | Home Phone [...] Team Providers + +------+ + | Care Family Law Legal Assistant Name | Role | Phone | + +------+ + | Freddie Woodward MD | PCP | | + +------+ + Encounter Details +--------+ + + + + | Date | Type | Department | Care Team | Description | +--------+ + + + + | 11/11/ | Hospital | [facility] | Conversion | | | 2012 | Encounter | [facility] | Transaction, | | | | | OUTPATIENT | Provider Unknown | | | | | PROCEDURES [address] | | | | [address] | (Fax) | | | | | [place], [place] | | | | | | [address] | | | | | | [phone] | | | +--------+ + + + [...] | | | | | [place] [address] | | | | | | [phone] | | | | | | | | +--------+ + + + + documented as of this encounter Visit Diagnoses Not on filedocumented in this encounter"
--- OUTSIDE RECORDS SUMMARY | ~2019-10-28 | XMS | Encounter Summary ---
Demographics + + + | Address | [address] | | | [place] [address] | + + + | Home Phone [...] Team Providers + +------+ + | Care Heel Burnisher Name | Role | Phone | + [...] [address] | | | | | [place] | D | D [place], | | | | | NATALIZ[place] | [place], | [place] [address] | | | | | INJECTION, 1 | [place] [address] | Phone: | | | | | [place] | Phone: | [phone] | | | | | CHEMOTHER, | [phone] | Fax: | | | | | IV INFUSION, | Fax: | [phone] | | | | | 1 HR | [phone] | | + +--------+ + + + + Encounter Details +--------+ + + + + | Date | Type | Department | Care Team | Description | +--------+ + + + + | 09/01/ | Procedure | [facility] | | MULTIPLE SCLEROSIS | | 2019 | visit | NEUROLOGY [address] | | (Primary Dx) | | | | [address] | | | | | | [place] | | | | | | [address] | | | | | | [phone] | | | +--------+ + + + [...] Beatris Tejeda RN - 09/01/2019 1:45 PM [id number] Pt presents for IV Tysabri infusion. Pt i dentification verified and patient taken to Infusion [facility] 3. Informed consent was signed and the [...] a rate of 115 mL/hr utilizing an Thanx IV pump. Primary solution is 100 mL [...] [place] | | | | | | [employer] [facility] | | | | | | [place] [address] | | | | | | [phone] | | | | | | | [...]
--- OUTSIDE RECORDS SUMMARY | ~2019-10-28 | XMS | Encounter Summary ---
Demographics + + + | Address | [address] | | | [place] [address] | + + + | Home Phone | | + + + | Preferred Language | Unknown | + + + | Marital Status | Single | + + + | Rastafarian Affiliation | 1013 | + + + | Race | Unknown | + + + | Ethnic Group | Unknown | + + + Author + + + | Author | [facility] | | | and [place] | + + + | Organization | [facility] | | [...] Team Providers + +------+ + | Care Headwaitress Name | Role | Phone | + +------+ + PCP | Unavailable | + +------+ + Encounter Details +--------+ + + + + | Date | Type | Department | Care Team | Description | +--------+ + + + + | 02/13/ | [facility] | [facility] | | | | 2000 | Encounter | MED CTR GENERIC OP | | | | | | CONV DEPT [address] | | | | | | [place], | | | | | | [place] [address] | | | | | | [phone] | | | +--------+ + + + [...] | | | | | [place] [address] | | | | | | [phone] | | | | | | | | +--------+ + + + + documented as of this encounter Visit Diagnoses Not on filedocumented in this encounter"
--- OUTSIDE RECORDS SUMMARY | ~2019-10-28 | XMS | Encounter Summary ---
Demographics + + + | Address | [address] | | | [place] [address] | + + + | Home Phone [...] Team Providers + +------+ + | Care Resident Assistant Name | Role | Phone | + +------+ + PCP | Unavailable | + +------+ + Encounter Details +--------+ + + + + | Date | Type | Department | Care Team | Description | +--------+ + + + + | 10/22/ | [facility] | [facility] | | | | 2005 | Encounter | MED CTR XRAY [address] | | | | | | [address] | | | | | | [place] [address] | | | | | | [phone] | | | +--------+ + + + [...] | | | | | [place] [address] | | | | | | [phone] | | | | | | | | +--------+ + + + + documented as of this encounter Visit Diagnoses Not on filedocumented in this encounter"
--- OUTSIDE RECORDS SUMMARY | ~2019-10-28 | XMS | Encounter Summary ---
Demographics + + + | Address | [address] | | | [place] [address] | + + + | Home Phone [...] Team Providers + +------+ + | Care Pest Control Service Technician Name | Role | Phone | + +------+ + | Freddie Woodward MD | PCP | | + +------+ + Encounter Details +--------+ + + + + | Date | Type | Department | Care Team | Description | +--------+ + + + + | 04/06/ | Orders Only | [facility] | Denis Stokes, | | | 2015 | | NEUROLOGY [address] | PA-C [address] | | | | | [address] | DRIVE [facility] [address] | | | | | [place], [place] | [place] [address] | | | | | [address] | [phone] | | | | | [phone] | | | +--------+ + + + [...] D | | | | | | [place] [address] | | | | | | [phone] | | | | | | | [...] EXTERNAL | | | | performed at [facility] | | LAB | | | | [facility] | | | | | | Diagnostics, [address] | | | | | | [address] | | | | | | [place] [address] | | | | + + + [...] | | | | | performed at [facility] | | | | | | [facility] | | | | | | Diagnostics, [address] | | | | | | [address] | | | | | | [place] [address] | | | | + + + [...]
--- OUTSIDE RECORDS SUMMARY | ~2019-10-28 | XMS | Encounter Summary ---
Demographics + + + | Address | [address] | | | [place] [address] | + + + | Home Phone | | + + + | Preferred Language | Unknown | + + + | Marital Status | Single | + + + | Pentecostal Affiliation | 1013 | + + + | Race | Unknown | + + + | Ethnic Group | Unknown | + + + Author + + + | Author | [facility] | | | and [place] | + + + | Organization | [facility] | | | and [...] Team Providers + +------+ + | Care Propulsion Systems Engineer Name | Role | Phone | [...] + + | 10/13/ | Documentati | [facility] | Lizz Elmore | [employer] | | 2019 | on | NEUROLOGY [address] | M, Feather [address] | Reauthorization) | | | | [place] | | | | | | [place] | | | | | | [address] | | | | | | [phone] | | | +--------+ + + + [...] of this encounter Progress Notes Lizz Elmore, Feather Shaper - 10/13/2019 8:20 AM Milton Mendozann [address] [...] [address] | | | | | | [place] [address] | | | | | | [phone] | | | | | | | | +--------+ + + + + documented as of this encounter Visit Diagnoses Not on filedocumented in this encounter
--- OUTSIDE RECORDS SUMMARY | ~2019-10-28 | XMS | Encounter Summary ---
Demographics + + + | Address | [address] | | | [place] [address] | + + + | Home Phone [...] Team Providers + +------+ + | Care Spool Sander Name | Role | Phone | + +------+ + | Freddie Woodward MD | PCP | | + +------+ + Encounter Details +--------+ + + + + | Date | Type | Department | Care Team | Description | +--------+ + + + + | 06/23/ | Orders Only | [facility] | Provider, | | | 2018 | | SYSTEM GENERIC OP | MD [address] | | | | | CONVERSION [address] | [place]. | | | | | [address] [place], [place] | [place] [address] | | | | | [address] | | | | | | [phone] | | | +--------+ + + + [...] | | | | | [place] [address] | | | | | | [phone] | | | | | | | | +--------+ + + + + documented as of this encounter Visit Diagnoses Not on filedocumented in this encounter"
--- OUTSIDE RECORDS SUMMARY | ~2019-10-28 | XMS | Encounter Summary ---
Demographics + + + | Address | [address] | | | [place] [address] | + + + | Home Phone | | + + + | Preferred Language | Unknown | + + + | Marital Status | Single | + + + | Yazidi Affiliation | 1013 | + + + | Race | Unknown | + + + | Ethnic Group | Unknown | + + + Author + + + | Author | [facility] | | | and [place] | + + + | Organization | [facility] | | [...] Team Providers + +------+ + | Care Bankruptcy Attorney Name | Role | Phone | + +------+ + | Freddie Woodward MD | PCP | | + +------+ + Encounter Details +--------+ + + + + | Date | Type | Department | Care Team | Description | +--------+ + + + + | 07/20/ | Hospital | [facility] | Conversion | | | 2013 | Encounter | [facility] | Transaction, | | | | | OUTPATIENT | Provider Unknown | | | | | PROCEDURES [address] | | | [address] | (Fax) | | | | | [place], [place] | | | | | | [address] | | | | | | [phone] | | | +--------+ + + + [...] | | | | | [place] [address] | | | | | | [phone] | | | | | | | | +--------+ + + + + documented as of this encounter Visit Diagnoses Not on filedocumented in this encounter"
--- OUTSIDE RECORDS SUMMARY | ~2019-10-28 | XMS | Encounter Summary ---
Demographics + + + | Address | [address] | | | [place] [address] | + + + | Home Phone | | + + + | Preferred Language | Unknown | + + + | Marital Status | Single | + + + | Uatsdin Affiliation | 1013 | + + + | Race | Unknown | + + + | Ethnic Group | Unknown | + + + Author + + + | Author | [facility] | | | and [place] | + + + | Organization | [facility] [...] Providers + +------+ + | Care Clinical Cytogenetics Director Name | Role | Phone | + +------+ + | Freddie Woodward MD | PCP | | + +------+ + Encounter Details +--------+ + + + + | Date | Type | Department | Care Team | Description | +--------+ + + + + | 06/01/ | Abstract | [facility] | [facility], | | | 2012 | | GASTROENTEROLOGY | [address] | | | | | [address] [place] | [place], [place] [address] | | | | | [address] [place], [place] | [place], [place] | | | | | [address] | [address] | | | | | [phone] | | | +--------+ + + + [...] | | | | | [place] [address] | | | | | | [phone] | | | | | | | | +--------+ + + + + documented as of this encounter Visit Diagnoses Not on filedocumented in this encounter"
--- OUTSIDE RECORDS SUMMARY | ~2019-10-28 | XMS | Encounter Summary ---
Demographics + + + | Address | [address] | | | [place] [address] | + + + | Home Phone [...] + + + | Author | [facility] | | | and [place] | + + + | Organization | [facility] | | [...] Team Providers + +------+ + | Care Aircraft Cabin Cleaner Name | Role | Phone | + +------+ + | Freddie Woodward MD | PCP | | + +------+ + Encounter Details +--------+ + + + + | Date | Type | Department | Care Team | Description | +--------+ + + + + | 10/12/ | Hospital | [facility] | Conversion | | | 2013 | Encounter | [facility] | Transaction, | | | | | OUTPATIENT | Provider Unknown | | | | | PROCEDURES [address] | | [address] | (Fax) | | | | | [place], [place] | | | | | | [address] | | | | | | [phone] | | | +--------+ + + + [...] | | | | | [place] [address] | | | | | | [phone] | | | | | | | | +--------+ + + + + documented as of this encounter Visit Diagnoses Not on filedocumented in this encounter"
--- OUTSIDE RECORDS SUMMARY | ~2019-10-28 | XMS | Encounter Summary ---
Demographics + + + | Address | [address] | | | [place] [address] | + + + | Home Phone | | + + + | Preferred Language | Unknown | + + + | Marital Status | Single | + + + | Synagogue Affiliation | 1013 | + + + [...] + + + + | 02/18/ | [facility] | [facility] | | | | 2006 | Encounter | MED CTR EMERGENCY | | | | | | CENTER [address] | | | | | | [place], [place] | | | | | | [address] | | | | | | [phone] | | | +--------+ + + + [...] | | | | | [place] [address] | | | | | | [phone] | | | | | | | | +--------+ + + + + documented as of this encounter Visit Diagnoses Not on filedocumented in this encounter"
--- OUTSIDE RECORDS SUMMARY | ~2019-10-28 | XMS | Encounter Summary ---
Demographics + + + | Address | [address] | | | [place] [address] | + + + | Home Phone [...] Team Providers + +------+ + | Care Orange Grower Name | Role | Phone | + +------+ + PCP | Unavailable | + +------+ + Encounter Details +--------+ + + + + | Date | Type | Department | Care Team | Description | +--------+ + + + + | 09/30/ | [facility] | [facility] | | | | 2006 | Encounter | MED CTR XRAY [address] | | | | | | [address] | | | | | | [place] [address] | | | | | | [phone] | | | +--------+ + + + [...] | | | | | [place] [address] | | | | | | [phone] | | | | | | | | +--------+ + + + + documented as of this encounter Visit Diagnoses Not on filedocumented in this encounter"
--- OUTSIDE RECORDS SUMMARY | ~2019-10-28 | XMS | Encounter Summary ---
Demographics + + + | Address | [address] | | | [place] [address] | + + + | Home Phone | | + + + | Preferred Language | Unknown | + + + | Marital Status | Single | + + + | Confucianist Affiliation | 1013 | + + + [...] Team Providers + +------+ + | Care Community Health Nursing Director Name | Role | Phone | + +------+ + | Freddie Woodward MD | PCP | | + +------+ + Reason for Visit +--------+ + | Reason | Comments | +--------+ + | Other | referral to tertiary center | +--------+ + Encounter Details +--------+ + + + + | Date | Type | Department | Care Team | Description | +--------+ + + + + | 08/10/ | Telephone | [facility] | Kaz Martin MD | Other (referral to | | 2012 | | GASTROENTEROLOGY | [address] [facility] | tertiary center) | | | | [address] [facility] | [address] [place], [place] | | | | | [address] [place], [place] | [address] | | | | | [address] | | | | | | [phone] | | | +--------+ + + + [...] | | | | | [place] [address] | | | | | | [phone] | | | | | | | | +--------+ + + + + documented as of this encounter Visit Diagnoses Not on filedocumented in this encounter"
--- OUTSIDE RECORDS SUMMARY | ~2019-10-28 | XMS | Encounter Summary ---
Demographics + + + | Address | [address] | | | [place] [address] | + + + | Home Phone | | + + + | Preferred Language | Unknown | + + + | Marital Status | Single | + + + | Anglican Affiliation | 1013 | + + + [...] Team Providers + +------+ + | Care Law Instructor Name | Role | Phone | + +------+ + | Freddie Woodward MD | PCP | | + +------+ + Encounter Details +--------+ + + + + | Date | Type | Department | Care Team | Description | +--------+ + + + + | 11/09/ | Hospital | [facility] | Conversion | | | 2014 | Encounter | [facility] | Transaction, | | | | | OUTPATIENT | Provider Unknown | | | | | PROCEDURES [address] | | [address] | (Fax) | | | | | [place], [place] | | | | | | [address] | | | | | | [phone] | | | +--------+ + + + [...] | | | | | [place] [address] | | | | | | [phone] | | | | | | | | +--------+ + + + + documented as of this encounter Visit Diagnoses Not on filedocumented in this encounter"
--- OUTSIDE RECORDS SUMMARY | ~2019-10-28 | XMS | Encounter Summary ---
Demographics + + + | Address | [address] | | | [place] [address] | + + + | Home Phone | | + + + | Preferred Language | Unknown | + + + | Marital Status | Single | + + + | Jainism Affiliation | 1013 | + + + | Race | Unknown | + + + | Ethnic Group | Unknown | + + + Author + + + | Author | [facility] | | | and [place] | + + + | Organization | [facility] | | [...] Team Providers + +------+ + | Care Flake Cutter Operator Name | Role | Phone | + +------+ + | Freddie Woodward MD | PCP | | + +------+ + Encounter Details +--------+ + + + + | Date | Type | Department | Care Team | Description | +--------+ + + + + | 09/14/ | Hospital | [facility] | Conversion | | | 2013 | Encounter | [facility] | Transaction, | | | | | OUTPATIENT | Provider Unknown | | | | | PROCEDURES [address] | | | [address] | (Fax) | | | | | [place], [place] | | | | | | [address] | | | | | | [phone] | | | +--------+ + + + [...] | | | | | [place] [address] | | | | | | [phone] | | | | | | | | +--------+ + + + + documented as of this encounter Visit Diagnoses Not on filedocumented in this encounter"
--- OUTSIDE RECORDS SUMMARY | ~2019-10-28 | XMS | Encounter Summary ---
Demographics + + + | Address | [address] | | | [place] [address] | + + + | Home Phone | | + + + | Preferred Language | Unknown | + + + | Marital Status | Single | + + + | Confucianist Affiliation | 1013 | + + + | Race | Unknown | + + + | Ethnic Group | Unknown | + + + Author + + + | Author | [facility] | | | and [place] | + + + | Organization | [facility] | | [...] Team Providers + +------+ + | Care Meat Supervisor Name | Role | Phone | + +------+ + PCP | Unavailable | + +------+ + Encounter Details +--------+ + + + + | Date | Type | Department | Care Team | Description | +--------+ + + + + | 01/31/ | [facility] | [facility] | | | | 2008 | Encounter | MED CTR XRAY [address] | | | | | | [address] | | | | | | [place] [address] | | | | | | [phone] | | | +--------+ + + + [...] | | | | | [place] [address] | | | | | | [phone] | | | | | | | | +--------+ + + + + documented as of this encounter Visit Diagnoses Not on filedocumented in this encounter"
--- OUTSIDE RECORDS SUMMARY | ~2019-10-28 | XMS | Encounter Summary ---
Demographics + + + | Address | [address] | | | [place] [address] | + + + | Home Phone | | + + + | Preferred Language | Unknown | + + + | Marital Status | Single | + + + | Hinduism Affiliation | 1013 | + + + | Race | Unknown | + + + | Ethnic Group | Unknown | + + + Author + + + | Author | [facility] | | | and [place] | + + + | Organization | [facility] | | [...] Providers + +------+ + | Care Assistant Activities Director Name | Role | Phone | + +------+ + PCP | Unavailable | + +------+ + Encounter Details +--------+ + + + + | Date | Type | Department | Care Team | Description | +--------+ + + + + | 04/11/ | [facility] | [facility] | | | | 1999 - | Encounter | MED CTR MED ONC | | | | | | [address] | | | | 04/15/ | | [place] [address] | | | | 1999 | | [phone] | | | +--------+ + + + [...] | | | | | [place] [address] | | | | | | [phone] | | | | | | | | +--------+ + + + + documented as of this encounter Visit Diagnoses Not on filedocumented in this encounter"
--- OUTSIDE RECORDS SUMMARY | ~2019-10-28 | XMS | Encounter Summary ---
Demographics + + + | Address | [address] | | | [place] [address] | + + + | Home Phone [...] Team Providers + +------+ + | Care Ends Breakage Clerk Name | Role | Phone | + +------+ + PCP | Unavailable | + +------+ + Encounter Details +--------+ + + + + | Date | Type | Department | Care Team | Description | +--------+ + + + + | 12/12/ | [facility] | [facility] | | | | 2000 | Encounter | MED CTR LABORATORY | | | | | | [address] | | | | | | [place] | | | | | | [address] | | | | | | [phone] | | | +--------+ + + + [...] | | | | | [place] [address] | | | | | | [phone] | | | | | | | | +--------+ + + + + documented as of this encounter Visit Diagnoses Not on filedocumented in this encounter"
--- OUTSIDE RECORDS SUMMARY | ~2019-10-28 | XMS | Encounter Summary ---
Demographics + + + | Address | [address] | | | [place] [address] | + + + | Home Phone | | + + + | Preferred Language | Unknown | + + + | Marital Status | Single | + + + | Christianity Affiliation | 1013 | + + + [...] Team Providers + +------+ + | Care Engagement Mgr Name | Role | Phone | + +------+ + PCP | Unavailable | + +------+ + Encounter Details +--------+ + + + + | Date | Type | Department | Care Team | Description | +--------+ + + + + | 04/01/ | [facility] | [facility] | | | | 2003 | Encounter | MED CTR LABORATORY | | | | | | [address] | | | | | | [place] | | | | | | [address] | | | | | | [phone] | | | +--------+ + + + [...] | | | | | [place] [address] | | | | | | [phone] | | | | | | | | +--------+ + + + + documented as of this encounter Visit Diagnoses Not on filedocumented in this encounter"
--- OUTSIDE RECORDS SUMMARY | ~2019-10-28 | XMS | Encounter Summary ---
Demographics + + + | Address | [address] | | | [place] [address] | + + + | Home Phone | | + + + | Preferred Language | Unknown | + + + | Marital Status | Single | + + + | Holiness Affiliation | 1013 | + + + [...] Team Providers + +------+ + | Care Quick Technician Name | Role | Phone | [...] [address] | | | | | [place], [place] | [address] | | | | | [address] | [place] [address] | | | | | [phone] | [phone] | | | | | | | [...] | | | | | [place] [address] | | | | | | [phone] | | | | | | | [...]
--- OUTSIDE RECORDS SUMMARY | ~2019-10-28 | XMS | Encounter Summary ---
Demographics + + + | Address | [address] | | | [place] [address] | + + + | Home Phone [...] Team Providers + +------+ + | Care Wood Cut Engraver Name | Role | Phone | + [...] + + | 08/10/ | Telephone | [facility] | Kaz Martin MD | Other (referral to | | 2012 | | GASTROENTEROLOGY | [address] [facility] | tertiary center) | | | | [address] [facility] | [address] [place], [place] | | | | | [address] [place], [place] | [address] | | | | | [address] | | | | | | [phone] | | | +--------+ + + + [...] | | | | | [place] [address] | | | | | | [phone] | | | | | | | | +--------+ + + + + documented as of this encounter Visit Diagnoses Not on filedocumented in this encounter"
--- OUTSIDE RECORDS SUMMARY | ~2019-10-28 | XMS | Encounter Summary ---
Demographics + + + | Address | [address] | | | [place] [address] | + + + | Home Phone [...] + + + | Author | [facility] | | | and [place] | + + + | Organization | [facility] | | | [...] Team Providers + +------+ + | Care Network Operations Manager Name | Role | Phone | + +------+ + PCP | Unavailable | + +------+ + Encounter Details +--------+ + + + + | Date | Type | Department | Care Team | Description | +--------+ + + + + | 11/13/ | [facility] | [facility] | | | | 1999 | Encounter | MED CTR LABORATORY | | | | | | [address] | | | | | | [place] | | | | | | [address] | | | | | | [phone] | | | +--------+ + + + [...] | | | | | [place] [address] | | | | | | [phone] | | | | | | | | +--------+ + + + + documented as of this encounter Visit Diagnoses Not on filedocumented in this encounter"
--- OUTSIDE RECORDS SUMMARY | ~2019-10-28 | XMS | Encounter Summary ---
Demographics + + + | Address | [address] | | | [place] [address] | + + + | Home Phone [...] Providers + +------+ + | Care Medical Program Specialist Name | Role | Phone | + +------+ + PCP | Unavailable | + +------+ + Encounter Details +--------+ + + + + | Date | Type | Department | Care Team | Description | +--------+ + + + + | 04/18/ | [facility] | [facility] | | | | 2008 | Encounter | MED CTR LABORATORY | | | | | | [address] | | | | | | [place] | | | | | | [address] | | | | | | [phone] | | | +--------+ + + + [...] | | | | | [place] [address] | | | | | | [phone] | | | | | | | | +--------+ + + + + documented as of this encounter Visit Diagnoses Not on filedocumented in this encounter"
--- OUTSIDE RECORDS SUMMARY | ~2019-10-28 | XMS | Encounter Summary ---
Demographics + + + | Address | [address] | | | [place] [address] | + + + | Home Phone [...] Team Providers + +------+ + | Care Presentation Manager Name | Role | Phone | + +------+ + | Freddie Woodward MD | PCP | | + +------+ + Encounter Details +--------+ + + + + | Date | Type | Department | Care Team | Description | +--------+ + + + + | 07/21/ | Hospital | [facility] | Conversion | | | 2012 | Encounter | [facility] | Transaction, | | | | | OUTPATIENT | Provider Unknown | | | | | PROCEDURES [address] | | | | [address] | (Fax) | | | | | [place], [place] | | | | | | [address] | | | | | | [phone] | | | +--------+ + + + [...] | | | | | [place] [address] | | | | | | [phone] | | | | | | | | +--------+ + + + + documented as of this encounter Visit Diagnoses Not on filedocumented in this encounter"
--- OUTSIDE RECORDS SUMMARY | ~2019-10-28 | XMS | Encounter Summary ---
Demographics + + + | Address | [address] | | | [place] [address] | + + + | Home Phone [...] Team Providers + +------+ + | Care Metal Cabinet Finisher Name | Role | Phone | + +------+ + PCP | Unavailable | + +------+ + Encounter Details +--------+ + + + + | Date | Type | Department | Care Team | Description | +--------+ + + + + | 09/30/ | [facility] | [facility] | | | | 2006 | Encounter | MED CTR XRAY [address] | | | | | | [address] | | | | | | [place] [address] | | | | | | [phone] | | | +--------+ + + + [...] | | | | | [place] [address] | | | | | | [phone] | | | | | | | | +--------+ + + + + documented as of this encounter Visit Diagnoses Not on filedocumented in this encounter"
--- OUTSIDE RECORDS SUMMARY | ~2019-10-28 | XMS | Encounter Summary ---
Demographics + + + | Address | [address] | | | [place] [address] | + + + | Home Phone | | + + + | Preferred Language | Unknown | + + + | Marital Status | Single | + + + | Protestant Affiliation | 1013 | + + + [...] Providers + +------+ + | Care Medical Director Name | Role | Phone | + +------+ + PCP | Unavailable | + +------+ + Encounter Details +--------+ + + + + | Date | Type | Department | Care Team | Description | +--------+ + + + + | 02/21/ | [facility] | [facility] | | | | 1999 | Encounter | MED CTR GENERIC OP | | | | | | CONV DEPT [address] | | | | | | [place], | | | | | | [place] [address] | | | | | | [phone] | | | +--------+ + + + [...] | | | | | [place] [address] | | | | | | [phone] | | | | | | | | +--------+ + + + + documented as of this encounter Visit Diagnoses Not on filedocumented in this encounter"
--- OUTSIDE RECORDS SUMMARY | ~2019-10-28 | XMS | Encounter Summary ---
Demographics + + + | Address | [address] | | | [place] [address] | + + + | Home Phone [...] Providers + +------+ + | Care Director Recreation Center Name | Role | Phone | + +------+ + | Lucy Godinez PA-C | PCP | | + +------+ + Encounter Details +--------+ + + + + | Date | Type | Department | Care Team | Description | +--------+ + + + + | 10/27/ | Orders Only | [facility] | Denis Stokes, | MULTIPLE SCLEROSIS; | | 2018 | | NEUROLOGY [address] | PA-C [address] | Encounter for | | | | [address] | [address] | medication | | | | [place], [place] | [place] [address] | monitoring | | | | [address] | [phone] | | | | | [phone] | | | +--------+ + + + [...] | | | | | [place] [address] | | | | | | [phone] | | | | | | | [...]
--- OUTSIDE RECORDS SUMMARY | ~2019-10-28 | XMS | Encounter Summary ---
Demographics + + + | Address | [address] | | | [place] [address] | + + + | Home Phone | | + + + | Preferred Language | Unknown | + + + | Marital Status | Single | + + + | Sikhism Affiliation | 1013 | + + + [...] Team Providers + +------+ + | Care Touch Up Painter Hand Name | Role | Phone | + +------+ + PCP | Unavailable | + +------+ + Encounter Details +--------+ + + + + | Date | Type | Department | Care Team | Description | +--------+ + + + + | 04/11/ | [facility] | [facility] | | | | 1999 - | Encounter | MED CTR MED ONC | | | | | | [address] | | | | 04/15/ | | [place] [address] | | | | 1999 | | [phone] | | | +--------+ + + + [...] | | | | | [place] [address] | | | | | | [phone] | | | | | | | | +--------+ + + + + documented as of this encounter Visit Diagnoses Not on filedocumented in this encounter"
--- OUTSIDE RECORDS SUMMARY | ~2019-10-28 | XMS | Encounter Summary ---
Demographics + + + | Address | [address] | | | [place] [address] | + + + | Home Phone | | + + + | Preferred Language | Unknown | + + + | Marital Status | Single | + + + | Sikh Affiliation | 1013 | + + + [...] Providers + +------+ + | Care Guest Experience Specialist Name | Role | Phone | + +------+ + PCP | Unavailable | + +------+ + Encounter Details +--------+ + + + + | Date | Type | Department | Care Team | Description | +--------+ + + + + | 11/06/ | [facility] | [facility] | | | | 1999 - | Encounter | MED CTR MED ONC | | | | | | [address] | | | | 11/07/ | | [place] [address] | | | | 1999 | | [phone] | | | +--------+ + + + [...] | | | | | [place] [address] | | | | | | [phone] | | | | | | | | +--------+ + + + + documented as of this encounter Visit Diagnoses Not on filedocumented in this encounter"
--- OUTSIDE RECORDS SUMMARY | ~2019-10-28 | XMS | Encounter Summary ---
Demographics + + + | Address | [address] | | | [place] [address] | + + + | Home Phone [...] Team Providers + +------+ + | Care Rda Name | Role | Phone | + +------+ + | Freddie Woodward MD | PCP | | + +------+ + Encounter Details +--------+ + + + + | Date | Type | Department | Care Team | Description | +--------+ + + + + | 02/18/ | Hospital | [facility] | Conversion | Pain | | 2014 | Encounter | CONVERSION DEP [address] | Transaction, | | | | | [address] | Provider Unknown | | | | | [place], [place] | [phone] | | | | | [address] | (Fax) | | | | | [phone] | | | +--------+ + + + [...] D | | | | | | [facility] [place] [address] | | | | | | [phone] | | | | | | | [...]
--- OUTSIDE RECORDS SUMMARY | ~2019-10-28 | XMS | Encounter Summary ---
Demographics + + + | Address | [address] | | | [place] [address] | + + + | Home Phone | | + + + | Preferred Language | Unknown | + + + | Marital Status | Single | + + + | Buddhism Affiliation | Unknown | + + + | Race | White | + + + | Ethnic Group | Not or | + + + Author + + + | Author | [facility] | + + + | Organization | [facility] | + + + | Address | Unknown | + + + | Phone | Unavailable | + + + Support + + +---------+ + | Name | Relationship | Address | Phone | + + +---------+ + | Kristina Dill | ECON | Unknown | Unavailable | + + +---------+ + Care Team Providers + +------+ + | Care Diamond Die Maker Name | Role | Phone | [...] | | | | | [address] | [address] | [place], [place] | | | | | [place] | Phone: | [address] | | | | | | [phone] | Phone: | | | | | | Fax: | [phone] | | | | | | [phone] | Fax: | | | | | | | [phone] | +--------+--------+ + + + + Encounter Details +--------+---------+ + + + | Date | Type | Department | Care Team | Description | +--------+---------+ + + + | 11/09/ | Office | [facility] | Ceferino Vargas | IBS (irritable bowel | | 2012 | Visit | Center at [facility] [address] | [address] | syndrome) (Primary | | | | [address] | [address] [place], | Dx); Abnormal LFTs | | | | Mailcode: [place] | [place] [address] | (liver function | | | | for Health and | [phone] | tests); Abnormal | | | | Healing, [address] | | magnetic resonance | | | | [place], [place] | | imaging of liver | | | | [address] | | | | | | [phone] | | | +--------+---------+ + + + [...] Years of Education: N/A Occupational History Prior farmworker, 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
--- OUTSIDE RECORDS SUMMARY | ~2019-10-28 | XMS | Encounter Summary ---
Demographics + + + | Address | [address] | | | [place] [address] | + + + | Home Phone | | + + + | Preferred Language | Unknown | + + + | Marital Status | Single | + + + | Caodaism Affiliation | 1013 | + + + [...] Team Providers + +------+ + | Care Budget Technician Name | Role | Phone | [...] | Transaction, | | | | | [place], [place] | Provider Unknown | | | | | [address] | [phone] | | | | | [phone] | | | +--------+ + + + [...] [address] | | | | | | [employer] [address] | | | | | | [place] [address] | | | | | | [phone] | | | | | | | [...] + + + | Test Code | [id number]: CORRECTED | | EXTERNAL | | | | ON 04/07 AT 1350: | | LAB | | | | PREVIOUSLY REPORTED | | | | | | [id number] ON 04/14 | | | | | | AT 1115: PREVIOUSLY | | | | | | REPORTED 78795, | | | | | | CORRECTED ON 04/07 AT | | | | | | 0613: PREVIOUSLY | | | | | | REPORTED [phone] | | | | + + + [...]
--- OUTSIDE RECORDS SUMMARY | ~2019-10-28 | XMS | Encounter Summary ---
Demographics + + + | Address | [address] | | | [place] [address] | + + + | Home Phone [...] Team Providers + +------+ + | Care Teller Supervisor Name | Role | Phone | + +------+ + | Freddie Woodward MD | PCP | | + +------+ + Encounter Details +--------+ + + + + | Date | Type | Department | Care Team | Description | +--------+ + + + + | 05/12/ | Orders Only | [facility] | Denis Stokes, | | | 2019 | | [address] | [place] | | | | | [place], [place] | [address] | | | | | [address] | [place] [address] | | | | | [phone] | [phone] | | | | | | | [...] | | | | | [place] [address] | | | | | | [phone] | | | | | | | | +--------+ + + + + documented as of this encounter Procedures + +--------+ + + + | Procedure Name | Priori | Date/Time | Associated Diagnosis | Comments | | | ty | | | | + +--------+ + + + | ARMANDO VIRUS AB W/INDEX, | Routin | 05/12/2019 | | Results for this | | QUAL, REFLEX INHIB | e | 6:50 PM | | procedure are in the | | ASSAY | | PDT | | results section. | + +--------+ + + + documented in this encounter Results ARMANDO Virus Antbody W/Index, Qual, Reflex (05/12/2019 6:50 PM PDT) + + + + + + | Component | Value | Ref Range | Performed | Pathologist | | | | | At | Signature | + + + + + + | Index Value | 0.15 | | EXTERNAL | | | | [...]
--- OUTSIDE RECORDS SUMMARY | ~2019-10-28 | XMS | Encounter Summary ---
Demographics + + + | Address | [address] | | | [place] [address] | + + + | Home Phone | | + + + | Preferred Language | Unknown | + + + | Marital Status | Single | + + + | Rastafarian Affiliation | 1013 | + + + | Race | Unknown | + + + | Ethnic Group | Unknown | + + + Author + + + | Author | [facility] | | | and [place] | + + + | Organization | [facility] | | [...] Team Providers + +------+ + | Care Child Care Centre Director Name | Role | Phone | [...] [address] | | | | | [place], [place] | [address] | | | | | [address] | [place] [address] | | | | | [phone] | [phone] | | | | | | | [...] | | | | | [place] [address] | | | | | | [phone] | | | | | | | [...]
--- OUTSIDE RECORDS SUMMARY | ~2019-10-28 | XMS | Encounter Summary ---
Demographics + + + | Address | [address] | | | [place] [address] | + + + | Home Phone [...] + + + | Author | [facility] | | | and [place] | + + + | Organization | [facility] | | [...] Providers + +------+ + | Care Service Line Coordinator Name | Role | Phone | + +------+ + PCP | Unavailable | + +------+ + Encounter Details +--------+ + + + + | Date | Type | Department | Care Team | Description | +--------+ + + + + | 05/20/ | [facility] | [facility] | | | | 2008 | Encounter | MED CTR XRAY [address] | | | | | | [address] | | | | | | [place] [address] | | | | | | [phone] | | | +--------+ + + + [...] | | | | | [place] [address] | | | | | | [phone] | | | | | | | | +--------+ + + + + documented as of this encounter Visit Diagnoses Not on filedocumented in this encounter"
--- OUTSIDE RECORDS SUMMARY | ~2019-10-28 | XMS | Encounter Summary ---
Demographics + + + | Address | [address] | | | [place] [address] | + + + | Home Phone | | + + + | Preferred Language | Unknown | + + + | Marital Status | Single | + + + | Orthodoxy Affiliation | 1013 | + + + [...] Team Providers + +------+ + | Care Rectangular Tank Cooper Name | Role | Phone | + +------+ + PCP | Unavailable | + +------+ + Encounter Details +--------+ + + + + | Date | Type | Department | Care Team | Description | +--------+ + + + + | 09/23/ | [facility] | [facility] | | | | 2006 | Encounter | MED CTR LABORATORY | | | | | | [address] | | | | | | [place] | | | | | | [address] | | | | | | [phone] | | | +--------+ + + + [...] | | | | | [place] [address] | | | | | | [phone] | | | | | | | | +--------+ + + + + documented as of this encounter Visit Diagnoses Not on filedocumented in this encounter"
--- OUTSIDE RECORDS SUMMARY | ~2019-10-28 | XMS | Encounter Summary ---
Demographics + + + | Address | [address] | | | [place] [address] | + + + | Home Phone [...] Team Providers + +------+ + | Care Hat Blocker Name | Role | Phone | + +------+ + PCP | Unavailable | + +------+ + Encounter Details +--------+ + + + + | Date | Type | Department | Care Team | Description | +--------+ + + + + | 02/18/ | [facility] | [facility] | | | | 2006 | Encounter | MED CTR LABORATORY | | | | | | [address] | | | | | | [place] | | | | | | [address] | | | | | | [phone] | | | +--------+ + + + [...] | | | | | [place] [address] | | | | | | [phone] | | | | | | | | +--------+ + + + + documented as of this encounter Visit Diagnoses Not on filedocumented in this encounter"
--- OUTSIDE RECORDS SUMMARY | ~2019-10-28 | XMS | Encounter Summary ---
Demographics + + + | Address | [address] | | | [place] [address] | + + + | Home Phone [...] Team Providers + +------+ + | Care Middle School History Teacher Name | Role | Phone | [...] [address] | | | | | [place], [place] | [address] | | | | | [address] | [place] [address] | | | | | [phone] | [phone] | | | | | | | [...] | | | | | [place] [address] | | | | | | [phone] | | | | | | | [...]
--- OUTSIDE RECORDS SUMMARY | ~2019-10-28 | XMS | Encounter Summary ---
Demographics + + + | Address | [address] | | | [place] [address] | + + + | Home Phone [...] Team Providers + +------+ + | Care Jogger Operator Name | Role | Phone | + +------+ + | Freddie Woodward MD | PCP | | + +------+ + Encounter Details +--------+ + + + + | Date | Type | Department | Care Team | Description | +--------+ + + + + | 06/01/ | Abstract | [facility] [place] | [facility], | | | 2012 | | GASTROENTEROLOGY | [address] | | | | | [address] [place] | [place] [address] | | | | | [address] [place], [place] | [place], [place] | | | | | [address] | [address] | | | | | [phone] | | | +--------+ + + + [...] | | | | | [place] [address] | | | | | | [phone] | | | | | | | | +--------+ + + + + documented as of this encounter Visit Diagnoses Not on filedocumented in this encounter"
--- OUTSIDE RECORDS SUMMARY | ~2019-10-28 | XMS | Encounter Summary ---
Demographics + + + | Address | [address] | | | [place] [address] | + + + | Home Phone | | + + + | Preferred Language | Unknown | + + + | Marital Status | Single | + + + | Uatsdin Affiliation | Unknown | + + + | Race | White | + + + | Ethnic Group | Not or | + + + Author + + + | Author | [facility] | + + + | Organization | [facility] | + + + | Address | Unknown | + + + | Phone | Unavailable | + + + Support + + +---------+ + | Name | Relationship | Address | Phone | + + +---------+ + | Kristina Dill | CHARIS | Unknown | Unavailable | + + +---------+ + Care Team Providers + +------+ + | Care Weigher Bulker Name | Role | Phone | + +------+ + PCP | Unavailable | + +------+ + Encounter Details +--------+ + + + + | Date | Type | Department | Care Team | Description | +--------+ + + + + | 08/31/ | Abstract | [facility] | Clinic, | | | 2012 | | Center at [address] | Gastroenterology | | | | | [place] | | | | | | Mailcode: [place] | | | | | | for Health and | | | | | | [facility] [address] | | | | | | [place], [place] | | | | | | [address] | | | | | | [phone] | | | +--------+ + + + [...] as of this encounter Plan of Treatment Not on filedocumented as of this encounter Visit Diagnoses Not on filedocumented in this encounter"
--- OUTSIDE RECORDS SUMMARY | ~2019-10-28 | XMS | Encounter Summary ---
Demographics + + + | Address | [address] | | | [place] [address] | + + + | Home Phone [...] Team Providers + +------+ + | Care Glazier Metal Furniture Name | Role | Phone | + [...] | [address] | [address] [facility] [address] | | | | | [place], [place] | [place] [address] | | | | | [address] | [phone] | | | | | [phone] | | | +--------+ + + + [...] D | | | | | | [place] [address] | | | | | | [phone] | | | | | | | [...] EXTERNAL | | | | performed at [facility] | | LAB | | | | [facility] | | | | | | Diagnostics, [address] | | | | | | [address] | | | | | | [place] [address] | | | | + + + [...] | | | | | performed at [facility] | | | | | | [facility] | | | | | | Diagnostics, [address] | | | | | | [address] | | | | | | [place] [address] | | | | + + + [...]
--- OUTSIDE RECORDS SUMMARY | ~2019-10-28 | XMS | Encounter Summary ---
Demographics + + + | Address | [address] | | | [place] [address] | + + + | Home Phone | | + + + | Preferred Language | Unknown | + + + | Marital Status | Single | + + + | Quaker Affiliation | 1013 | + + + | Race | Unknown | + + + | Ethnic Group | Unknown | + + + Author + + + | Author | [facility] | | | and [place] | + + + | Organization | [facility] | | | [...] Team Providers + +------+ + | Care Antique Furniture Reproducer Name | Role | Phone | + +------+ + | Freddie Woodward MD | PCP | | + +------+ + Encounter Details +--------+ + + + + | Date | Type | Department | Care Team | Description | +--------+ + + + + | 08/17/ | Hospital | [facility] | Conversion | | | 2013 | Encounter | [facility] | Transaction, | | | | | OUTPATIENT | Provider Unknown | | | | | PROCEDURES [address] | | | [address] | (Fax) | | | | | [place], [place] | | | | | | [address] | | | | | | [phone] | | | +--------+ + + + [...] | | | | | [place] [address] | | | | | | [phone] | | | | | | | | +--------+ + + + + documented as of this encounter Visit Diagnoses Not on filedocumented in this encounter"
--- OUTSIDE RECORDS SUMMARY | ~2019-10-28 | XMS | Encounter Summary ---
Demographics + + + | Address | [address] | | | [place] [address] | + + + | Home Phone [...] Providers + +------+ + | Care Senior Bookkeeper Name | Role | Phone | + +------+ + | Freddie Woodward MD | PCP | | + +------+ + Encounter Details +--------+ + + + + | Date | Type | Department | Care Team | Description | +--------+ + + + + | 09/15/ | Hospital | [facility] | Conversion | | | 2012 | Encounter | [facility] | Transaction, | | | | | OUTPATIENT | Provider Unknown | | | | | PROCEDURES [address] | | [address] | (Fax) | | | | | [place], [place] | | | | | | [address] | | | | | | [phone] | | | +--------+ + + + [...] | | | | | [place] [address] | | | | | | [phone] | | | | | | | | +--------+ + + + + documented as of this encounter Visit Diagnoses Not on filedocumented in this encounter"
--- OUTSIDE RECORDS SUMMARY | ~2019-10-28 | XMS | Clinical Summary ---
Demographics + + + | Address | [address] | | | [place] [address] | + + + | Home Phone | | + + + | Preferred Language | Unknown | + + + | Marital Status | | + + + | Samaritan Affiliation | 1013 | + + + | Race | Unknown | + + + | Ethnic Group | Unknown | + + + Author + + + | Author | [facility] (Historical as of | | | 07-18-19) | + + + | Organization | [facility] (Historical as of | | | 07-18-19) [...] Team Providers + +------+ + | Care National Account Manager Name | Role | Phone | [...] | | Activ | | (VITAMIN D3) 11869 | mouth once a week. | capsule [...] +------+-------+ + | MEDICARE | MEDICA | [id number] | | | [address] | | | RE | | | | [place] [address] | | | IP-OP | | | | | + +--------+ +------+-------+ + | COMMERCIAL OTHER | COMMER | [id number] | | | | | | CIAL [...] | | al/Fam | | 1965 | [phone] [place] | | | nick | | | 9217 | [address] | + +--------+ +--------+ + +
--- OUTSIDE RECORDS SUMMARY | ~2019-10-28 | XMS | Encounter Summary ---
Demographics + + + | Address | [address] | | | [place] [address] | + + + | Home Phone [...] Team Providers + +------+ + | Care Rail Assembler Name | Role | Phone | + +------+ + | Freddie Woodward MD | PCP | | + +------+ + Encounter Details +--------+ + + + + | Date | Type | Department | Care Team | Description | +--------+ + + + + | 06/05/ | Hospital | [facility] | Conversion | Multiple sclerosis | | 2013 | Encounter | [facility] | Transaction, | ([facility]) | | | | [address] | Provider Unknown | | | | | [place], [place] | | | | | | [address] | (Fax) | | | | | [phone] | | | +--------+ + + + [...] | | | | | [place] [address] | | | | | | [phone] | | | | | | | [...]
--- OUTSIDE RECORDS SUMMARY | ~2019-10-28 | XMS | Encounter Summary ---
Demographics + + + | Address | [address] | | | [place] [address] | + + + | Home Phone [...] Team Providers + +------+ + | Care Special Education Teacher Name | Role | Phone | + +------+ + PCP | Unavailable | + +------+ + Encounter Details +--------+ + + + + | Date | Type | Department | Care Team | Description | +--------+ + + + + | 02/12/ | [facility] | [facility] | | | | 2000 | Encounter | MED CTR XRAY [address] | | | | | | [address] | | | | | | [place] [address] | | | | | | [phone] | | | +--------+ + + + [...] | | | | | [place] [address] | | | | | | [phone] | | | | | | | | +--------+ + + + + documented as of this encounter Visit Diagnoses Not on filedocumented in this encounter"
--- OUTSIDE RECORDS SUMMARY | ~2019-10-28 | XMS | Encounter Summary ---
Demographics + + + | Address | [address] | | | [place] [address] | + + + | Home Phone | | + + + | Preferred Language | Unknown | + + + | Marital Status | Single | + + + | Rastafarian Affiliation | 1013 | + + + | Race | Unknown | + + + | Ethnic Group | Unknown | + + + Author + + + | Author | [facility] | | | and [place] | + + + | Organization | [facility] | | | [...] Team Providers + +------+ + | Care Construction Project Coordinator Name | Role | Phone | + +------+ + | Freddie Woodward MD | PCP | | + +------+ + Encounter Details +--------+ + + + + | Date | Type | Department | Care Team | Description | +--------+ + + + + | 05/25/ | Hospital | [facility] | Conversion | | | 2013 | Encounter | [facility] | Transaction, | | | | | OUTPATIENT | Provider Unknown | | | | | PROCEDURES [address] | | | [address] | (Fax) | | | | | [place], [place] | | | | | | [address] | | | | | | [phone] | | | +--------+ + + + [...] | | | | | [place] [address] | | | | | | [phone] | | | | | | | | +--------+ + + + + documented as of this encounter Visit Diagnoses Not on filedocumented in this encounter"
--- OUTSIDE RECORDS SUMMARY | ~2019-10-28 | XMS | Encounter Summary ---
Demographics + + + | Address | [address] | | | [place] [address] | + + + | Home Phone [...] Providers + +------+ + | Care Assistant Property Manager Name | Role | Phone | + +------+ + | Freddie Woodward MD | PCP | | + +------+ + Encounter Details +--------+ + + + + | Date | Type | Department | Care Team | Description | +--------+ + + + + | 06/22/ | Hospital | [facility] | Conversion | | | 2013 | Encounter | [facility] | Transaction, | | | | | OUTPATIENT | Provider Unknown | | | | | PROCEDURES [address] | | | [address] | (Fax) | | | | | [place], [place] | | | | | | [address] | | | | | | [phone] | | | +--------+ + + + [...] | | | | | [place] [address] | | | | | | [phone] | | | | | | | | +--------+ + + + + documented as of this encounter Visit Diagnoses Not on filedocumented in this encounter"
--- OUTSIDE RECORDS SUMMARY | ~2019-10-28 | XMS | Encounter Summary ---
Demographics + + + | Address | [address] | | | [place] [address] | + + + | Home Phone [...] Team Providers + +------+ + | Care Force Variation Equipment Tender Name | Role | Phone | + +------+ + PCP | Unavailable | + +------+ + Encounter Details +--------+ + + + + | Date | Type | Department | Care Team | Description | +--------+ + + + + | 08/02/ | [facility] | [facility] | | | | 1998 | Encounter | MED CTR XRAY [address] | | | | | | [address] | | | | | | [place] [address] | | | | | | [phone] | | | +--------+ + + + [...] | | | | | [place] [address] | | | | | | [phone] | | | | | | | | +--------+ + + + + documented as of this encounter Visit Diagnoses Not on filedocumented in this encounter"
--- OUTSIDE RECORDS SUMMARY | ~2019-10-28 | XMS | Encounter Summary ---
Demographics + + + | Address | [address] | | | [place] [address] | + + + | Home Phone [...] Team Providers + +------+ + | Care Solutions Sales Executive Name | Role | Phone | + +------+ + PCP | Unavailable | + +------+ + Encounter Details +--------+ + + + + | Date | Type | Department | Care Team | Description | +--------+ + + + + | 03/29/ | [facility] | [facility] | | | | 1999 | Encounter | MED CTR LABORATORY | | | | | | [address] | | | | | | [place] | | | | | | [address] | | | | | | [phone] | | | +--------+ + + + [...] | | | | | [place] [address] | | | | | | [phone] | | | | | | | | +--------+ + + + + documented as of this encounter Visit Diagnoses Not on filedocumented in this encounter"
--- OUTSIDE RECORDS SUMMARY | ~2019-10-28 | XMS | Encounter Summary ---
Demographics + + + | Address | [address] | | | [place] [address] | + + + | Home Phone [...] Team Providers + +------+ + | Care Instrument Specialist Name | Role | Phone | + +------+ + | Lucy Godinez PA-C | PCP | | + +------+ + Encounter Details +--------+ + + + + | Date | Type | Department | Care Team | Description | +--------+ + + + + | 07/29/ | Triage Call | [facility] | Kaz Martin MD | | | 2012 | | GASTROENTEROLOGY | [address], [place] | | | | | [address] [place] | [address] [place], [place] | | | | | [address] [place], [place] | [address] | | | | | [address] | | | | | | [phone] | | | +--------+ + + + [...] documented as of this encounter Progress Notes Kaz Martin MD - 07/29/2013 12:00 AM PDT GASTROENTEROLOGY , PHONE NOTE I have not seen the patient recently. KEYANA Triplett, has asked me to review the workup with respect to abnormal liver function tests. I recommended an MRCP. The patient flannery d an ERCP with sphincterotomy done in 2006 for recurrent pancreatitis, biliary stent was re moved, and the patient has done well up until approximately 2 months ago. A temporary bilia ry stent was Placed into the cbd. The patient had a CT scan of the abdomen without contrast , which showed intrahepatic bile duct strictures. The longest stricture was in the left int rahepatic duct, approximately 1.[address] scan was reviewed with Dr. Forman, 07/28/2013 . Due to her abnormal liver function tests, the possibility of sclerosing cholangitis, less likely malignancy, etc., and areas of smaller strictures throughout the right intrahepatic ducts, feel that evaluation at a tertiary center, [facility], would be appropriate. This will be conveyed to the patient and arrangements made for the tertiary center referral . Kaz Martin MD / [facility] JOB #: [id number] signed by Kaz Martin MD at 08/06/2013 2:18 PM PDTdocument ed in this encounter Plan of Treatment +--------+ [...] Neurology | Denis Stokes, | | | 2020 | Visit | | [address] | | | | | | [place] | | | | | | [place] [address] | | | | | | [phone] | | | | | | | | +--------+ + + + + documented as of this encounter Visit Diagnoses Not on filedocumented in this encounter"
--- OUTSIDE RECORDS SUMMARY | ~2019-10-28 | XMS | Encounter Summary ---
Demographics + + + | Address | [address] | | | [place] [address] | + + + | Home Phone [...] Providers + +------+ + | Care Solar Consultant Name | Role | Phone | + +------+ + | Freddie Woodward MD | PCP | | + +------+ + Encounter Details +--------+ + + + + | Date | Type | Department | Care Team | Description | +--------+ + + + + | 02/09/ | Hospital | [facility] | Conversion | | | 2014 | Encounter | [facility] | Transaction, | | | | | OUTPATIENT | Provider Unknown | | | | | PROCEDURES [address] | | | [address] | (Fax) | | | | | [place], [place] | | | | | | [address] | | | | | | [phone] | | | +--------+ + + + [...] | | | | | [place] [address] | | | | | | [phone] | | | | | | | | +--------+ + + + + documented as of this encounter Visit Diagnoses Not on filedocumented in this encounter"
--- OUTSIDE RECORDS SUMMARY | ~2019-10-28 | XMS | Encounter Summary ---
Demographics + + + | Address | [address] | | | [place] [address] | + + + | Home Phone [...] | Author | [facility] | | | and [place] | + + + | Organization | [facility] | | [...] Team Providers + +------+ + | Care Net Developer Software Engineer C Name | Role | Phone | + +------+ + PCP | Unavailable | + +------+ + Encounter Details +--------+ + + + + | Date | Type | Department | Care Team | Description | +--------+ + + + + | 04/28/ | Hospital | [facility] | Supriya Thomas | | | 2008 | Encounter | MED CTR EMERGENCY | Aristeo Bliss MD [address] | | | | | CENTER [address] | [facility] | | | | | [place], [place] | [place] [address] | | | | | [address] | [phone] | | | | | [phone] | | | +--------+ + + + [...] | | | | | [place] [address] | | | | | | [phone] | | | | | | | | +--------+ + + + + documented as of this encounter Visit Diagnoses Not on filedocumented in this encounter"
--- OUTSIDE RECORDS SUMMARY | ~2019-10-28 | XMS | Encounter Summary ---
Demographics + + + | Address | [address] | | | [place] [address] | + + + | Home Phone [...] Team Providers + +------+ + | Care Reporter Name | Role | Phone | + +------+ + | Freddie Woodward MD | PCP | | + +------+ + Encounter Details +--------+ + + + + | Date | Type | Department | Care Team | Description | +--------+ + + + + | 05/09/ | Orders Only | [facility] | Denis Stkoes, | | | 2016 | | [address] | [address] | | | | | [place], [place] | [address] | | | | | [address] | [place] [address] | | | | | [phone] | [phone] | | | | | | | [...] | | | | | [place] [address] | | | | | | [phone] | | | | | | | [...] EXTERNAL | | | | performed at [facility] | | LAB | | | | [place], [address] | | | | | | [place] | | | | | | [address] | | | | + + + [...] | | | | | | [place], [address] | | | | | [address], [place] | | | | | | [address] | | | | + + + [...]
--- OUTSIDE RECORDS SUMMARY | ~2019-10-28 | XMS | Encounter Summary ---
Demographics + + + | Address | [address] | | | [place] [address] | + + + | Home Phone [...] Author | [facility] | | | and [place] | + [...] Team Providers + +------+ + | Care Fisher Trawl Line Name | Role | Phone | + +------+ + | Freddie Woodward MD | PCP | | + +------+ + Encounter Details +--------+ + + + + | Date | Type | Department | Care Team | Description | +--------+ + + + + | 12/15/ | Hospital | [facility] | Conversion | | | 2013 | Encounter | [facility] | Transaction, | | | | | OUTPATIENT | Provider Unknown | | | | | PROCEDURES [address] | | | [address] | (Fax) | | | | | [place], [place] | | | | | | [address] | | | | | | [phone] | | | +--------+ + + + [...] | | | | | [place] [address] | | | | | | [phone] | | | | | | | | +--------+ + + + + documented as of this encounter Visit Diagnoses Not on filedocumented in this encounter"
--- OUTSIDE RECORDS SUMMARY | ~2019-10-28 | XMS | Encounter Summary ---
Demographics + + + | Address | [address] | | | [place] [address] | + + + | Home Phone [...] Team Providers + +------+ + | Care Upper Cutter Name | Role | Phone | [...] | | | | ALT (SGPT) | [facility], | [address] | | | | | level raised | [place], | [place], | | | | | Abdominal | ACCOUNT INSTALLATION SPECIALIST [address] | [place] | | | | | pain | [address], [place] | [address] | | | | | Pancreatic | [address] [place] | Phone: | | | | | ductal | [place], [place] | [phone] | | | | | abnormality | [address] | Fax: | | | | | Procedures | Phone: | [phone] | | | | | MRI Abdomen | [phone] | | | | | | wo Contrast | Fax: | | | | | | | [phone] | | +--------+--------+ + + + + [...] | | | [address] [place] | [address], [place] [address] | | | | | [address] [place], [place] | [place], [place] | | | | | [address] | [address] | | | | | [phone] | | | +--------+ + + + [...] D | | | | | | [place] [address] | | | | | | [phone] | | | | | | | | +--------+ + + + + documented as of this encounter Results MRI Abdomen wo Contrast (07/17/2013 9:30 AM PDT) + + | Specimen | + + | | + + + + + | Narrative | Performed At | + + + | [facility] | [place] | | Department [address] [facility], [place] | [facility] | | [ rep ct [address]] [ rep ct [facility] | | st zip] Signed | - IMAGING | | | | | Patient Name: [place] Physician: | | | BRID.01 : 1965 Age: 48 Sex: F Unit #: [id number] | | | Exam Date: 07/17/13 Location: [facility] | | | Report #: [id number] Page: | | | %(RAD)RES..mtdd.print.filter("pg") of %(RAD) | | | RES..mtdd.print.filter("tpg") | | | | | | Accession Number: [id number] | | | CT OF ABDOMEN WITHOUT [...] | | | Transcribed Date/Time: 07/17/2013 10:02 Box Coverer Hand: | | | <<Signature on File>> | | | Kaz Rodriguez | | Elaine Forman MD07/18/13 0958 <Electronically signed by Kaz Forman MD> Kaz Forman MD 07/17/1330 | | | Box Coverer Hand: [facility] [id number]/16/13 1002 | | | SOREN Marie | | + + + + + + + + | Performing | Address | City/State/Zipcode | Phone Number | | Organization | | | | + + + + + | [address] | [address] | [place] | [phone] | | [facility] | | [address] | | | - IMAGING | | [...]
--- OUTSIDE RECORDS SUMMARY | ~2019-10-28 | XMS | Encounter Summary ---
Demographics + + + | Address | [address] | | | [place] [address] | + + + | Home Phone [...] + + + | Author | [facility] | | | and [place] | + + + | Organization | [facility] | | [...] Team Providers + +------+ + | Care Consulting Services Associate Name | Role | Phone | [...] + + | 07/29/ | Telephone | [facility] [place] | [employer], | Results | | 2012 | | GASTROENTEROLOGY | KEYANA Rayo [address] | | | | | [address] [place] | [place], [place] [address] | | | | | [address] [place], [place] | [place], [place] | | | | | [address] | [address] | | | | | [phone] | | | +--------+ + + + [...] D | | | | | | [place] [address] | | | | | | [phone] | | | | | | | | +--------+ + + + + documented as of this encounter Visit Diagnoses Not on filedocumented in this encounter"
--- OUTSIDE RECORDS SUMMARY | ~2019-10-28 | XMS | Encounter Summary ---
Demographics + + + | Address | [address] | | | [place] [address] | + + + | Home Phone [...] + + + | Author | [facility] | | | and [place] | + + + | Organization | [facility] | | [...] Team Providers + +------+ + | Care Mushroom Growing Supervisor Name | Role | Phone | + +------+ + PCP | Unavailable | + +------+ + Encounter Details +--------+ + + + + | Date | Type | Department | Care Team | Description | +--------+ + + + + | 09/17/ | [facility] | [facility] | | | | 2005 | Encounter | MED CTR LABORATORY | | | | | | [address] | | | | | | [place] | | | | | | [address] | | | | | | [phone] | | | +--------+ + + + [...] | | | | | [place] [address] | | | | | | [phone] | | | | | | | | +--------+ + + + + documented as of this encounter Visit Diagnoses Not on filedocumented in this encounter"
--- OUTSIDE RECORDS SUMMARY | ~2019-10-28 | XMS | Encounter Summary ---
Demographics + + + | Address | [address] | | | [place] [address] | + + + | Home Phone [...] Team Providers + +------+ + | Care Practice Physician Name | Role | Phone | + +------+ + PCP | Unavailable | + +------+ + Encounter Details +--------+ + + + + | Date | Type | Department | Care Team | Description | +--------+ + + + + | 11/02/ | [facility] | [facility] | | | | 2007 | Encounter | MED CTR XRAY [address] | | | | | | [address] | | | | | | [place] [address] | | | | | | [phone] | | | +--------+ + + + [...] | | | | | [place] [address] | | | | | | [phone] | | | | | | | | +--------+ + + + + documented as of this encounter Visit Diagnoses Not on filedocumented in this encounter"
--- OUTSIDE RECORDS SUMMARY | ~2019-10-28 | XMS | Encounter Summary ---
Demographics + + + | Address | [address] | | | [place] [address] | + + + | Home Phone [...] Team Providers + +------+ + | Care Policy Writer Sales Name | Role | Phone | + [...] | | | NATALIZ[facility] | [place], | [place] [address] | | | | | INJECTION, 1 | [place] [address] | Phone: | | | | | [place] | Phone: | [phone] | | | | | CHEMOTHER, | [phone] | Fax: | | | | | IV INFUSION, | Fax: | [phone] | | | | | 1 HR | [phone] | | + +--------+ + + + + Encounter Details +--------+ + + + + | Date | Type | Department | Care Team | Description | +--------+ + + + + | 08/04/ | Procedure | [facility] | | MULTIPLE SCLEROSIS | | 2019 | visit | NEUROLOGY [address] | | (Primary Dx) | | | | [address] | | | | | | [place] | | | | | | [address] | | | | | | [phone] | | | +--------+ + + + [...] encounter Patient Instructions Patient Instructions Lizz Elmore, Business Manager [employer] - 08/04/2019 1:45 PM PDTImagin g Information [...] Beatris Tejeda, ELDER - 08/04/2019 1:45 PM [id number] Pt presents for IV Tysabri infusion. Pt i dentification verified and patient taken to Infusion [facility] [facility]. Informed consent was signed and the [...] a rate of 115 mL/hr utilizing an [employer] IV pump. Primary solution is 100 mL [...] D | | | | | | [place] [address] | | | | | | [phone] | | | | | | | [...]
--- OUTSIDE RECORDS SUMMARY | ~2019-10-28 | XMS | Encounter Summary ---
Demographics + + + | Address | [address] | | | [place] [address] | + + + | Home Phone | | + + + | Preferred Language | Unknown | + + + | Marital Status | Single | + + + | Islam Affiliation | 1013 | + + + [...] Team Providers + +------+ + | Care Masonry Contractor Administrator Name | Role | Phone | + +------+ + PCP | Unavailable | + +------+ + Encounter Details +--------+ + + + + | Date | Type | Department | Care Team | Description | +--------+ + + + + | 01/26/ | Hospital | [facility] | Chester Guillaume MD | | | 2000 - | Encounter | MED CTR MED ONC | [address] | | | | | [address] [place] | [place] | | | 01/27/ | | [place] [address] | [address] | | | 2000 | | [phone] | | | +--------+ + + + [...] | | | | | [place] [address] | | | | | | [phone] | | | | | | | | +--------+ + + + + documented as of this encounter Visit Diagnoses Not on filedocumented in this encounter"
--- OUTSIDE RECORDS SUMMARY | ~2019-10-28 | XMS | Encounter Summary ---
Demographics + + + | Address | [address] | | | [place] [address] | + + + | Home Phone | | + + + | Preferred Language | Unknown | + + + | Marital Status | Single | + + + | Episcopal Affiliation | 1013 | + + + | Race | Unknown | + + + | Ethnic Group | Unknown | + + + Author + + + | Author | [facility] | | | and [place] | + + + | Organization | [facility] | | | [...] Team Providers + +------+ + | Care Stripe Marker Name | Role | Phone | + [...] 2012 | | GASTROENTEROLOGY | [address], [place] | | | | | [address] [place] | [address] [place], [place] | | | | | [address] [place], [place] | [address] | | | | | [address] | | | | | | [phone] | | | +--------+ + + + [...] feel that evaluation at a tertiary center, [facility], would be appropriate. This will be conveyed to the patient and arrangements made for the tertiary center referral . Kaz Martin MD / [facility] JOB #: [id number] signed by Kaz Martin MD at 08/06/2013 [...] | | | | | [place] [address] | | | | | | [phone] | | | | | | | | +--------+ + + + + documented as of this encounter Visit Diagnoses Not on filedocumented in this encounter"
--- OUTSIDE RECORDS SUMMARY | ~2019-10-28 | XMS | Encounter Summary ---
Demographics + + + | Address | [address] | | | [place] [address] | + + + | Home Phone [...] Team Providers + +------+ + | Care Starchmaker Name | Role | Phone | + +------+ + PCP | Unavailable | + +------+ + Encounter Details +--------+ + + + + | Date | Type | Department | Care Team | Description | +--------+ + + + + | 02/18/ | [facility] | [facility] | | | | 2006 | Encounter | MED CTR LABORATORY | | | | | | [address] | | | | | | [place] | | | | | | [address] | | | | | | [phone] | | | +--------+ + + + [...] | | | | | [place] [address] | | | | | | [phone] | | | | | | | | +--------+ + + + + documented as of this encounter Visit Diagnoses Not on filedocumented in this encounter"
--- OUTSIDE RECORDS SUMMARY | ~2019-10-28 | XMS | Clinical Summary ---
Demographics + + + | Address | [address] | | | [place] [address] | + + + | Home Phone [...] Team Providers + +------+ + | Care Cinder Pit Worker Name | Role | Phone | [...] + + + + | Overview: CINTHYA [id number] Decision | + + + +---+ | [...] | 2018 | on | | M Turning Sander Tender | Reauthorization) | +--------+ + + + + | 09/29/ | Clinical | Neurology | | MULTIPLE SCLEROSIS | | 2018 | Support | | | (Primary Dx) | +--------+ + + + + | 09/29/ | Hospital | Radiology | Denis Stokes, | Multiple sclerosis | | 2018 | Encounter | | PA-Jacqueline | ([facility]) | +--------+ + + + + | [...] [place] | | | | | | [address] | | | | | | [place] [address] | | | | | | [phone] | | | | | | | [...] +--------+ +---------+--------+ | MEDICARE | MEDICA | [id number] | | [phone] | | Medica | | | RE | | 015-Pr | 5 | | re | | | PART A | | esent | | | | | | AND B | | | | | | + +--------+ +--------+ +---------+--------+ | MEDICARE SUPPLEMENT | MEDICA | [id number] | 07/02/20 | [phone] | | Indemn | | OTHER | RE | | 17-Pre | 0 | | ity | | | SUPPLE | | sent | | | | | | MENT | | | | | | | | OTHER | | | | | | + +--------+ +--------+ +---------+--------+ | [employer] | MODA | [id number] | | [phone] | | Medica | | MEDICAID HMO [...] | | al/Fam | | 1965 | [phone] | [place], [place] | | | nick | | | 3 (Home) | [address] | | | | | | [phone] | | | | | | | 4 (Work) | | + +--------+ +--------+ + + | KelbyYane Eeautumnwill | Person | Self | [birth year] | | [address] | | | al/Fam | | 1965 | [phone] | [place] | | | nick | | | 3 (Home) | [address] | + +--------+ +--------+ + + Advance Directives + + + + + | Type | Date Recorded | Patient | Explanation | | | | Automobile Mechanic Helper | | + + + + + | Power of | | | | | Cartographic Engineer | | | | + + + + + | Advance | | | | | Directive | | | | + + + + +
--- OUTSIDE RECORDS SUMMARY | ~2019-10-28 | XMS | Encounter Summary ---
Demographics + + + | Address | [address] | | | [place] [address] | + + + | Home Phone [...] Team Providers + +------+ + | Care Wrapping Clerk Name | Role | Phone | + +------+ + PCP | Unavailable | + +------+ + Encounter Details +--------+ + + + + | Date | Type | Department | Care Team | Description | +--------+ + + + + | 04/11/ | Hospital | [facility] | Conversion | Multiple sclerosis | | 1993 | Encounter | CONVERSION DEP [address] | Transaction, | ([facility]) | | | | [address] | Provider Unknown | | | | | [place], [place] | [phone] | | | | | [address] | | | | | | [phone] | | | +--------+ + + + [...] | | | | | [place] [address] | | | | | | [phone] | | | | | | | | +--------+ + + + + documented as of this encounter Visit Diagnoses + + | Diagnosis | + + | Multiple sclerosis (HCC) Multiple sclerosis | + + documented in this encounter"
--- OUTSIDE RECORDS SUMMARY | ~2019-10-28 | XMS | Encounter Summary ---
Demographics + + + | Address | [address] | | | [place] [address] | + + + | Home Phone | | + + + | Preferred Language | Unknown | + + + | Marital Status | Single | + + + | Uatsdin Affiliation | 1013 | + + + | Race | Unknown | + + + | Ethnic Group | Unknown | + + + Author + + + | Author | [facility] | | | and [place] | + + + | Organization | [facility] | [...] Team Providers + +------+ + | Care Ornamental Ironworker Helper Name | Role | Phone | + +------+ + | Freddie Woodward MD | PCP | | + +------+ + Encounter Details +--------+ + + + + | Date | Type | Department | Care Team | Description | +--------+ + + + + | 03/09/ | Hospital | [facility] | Conversion | | | 2014 | Encounter | [facility] | Transaction, | | | | | OUTPATIENT | Provider Unknown | | | | | PROCEDURES [address] | | | | | [address] | (Fax) | | | | | [place], [place] | | | | | | [address] | | | | | | [phone] | | | +--------+ + + + [...] | | | | | [place] [address] | | | | | | [phone] | | | | | | | | +--------+ + + + + documented as of this encounter Visit Diagnoses Not on filedocumented in this encounter"
--- OUTSIDE RECORDS SUMMARY | ~2019-10-28 | XMS | Encounter Summary ---
Demographics + + + | Address | [address] | | | [place] [address] | + + + | Home Phone [...] Team Providers + +------+ + | Care Global Cmo Name | Role | Phone | + +------+ + | Freddie Woodward MD | PCP | | + +------+ + Encounter Details +--------+ + + + + | Date | Type | Department | Care Team | Description | +--------+ + + + + | 11/11/ | Hospital | [facility] | Conversion | | | 2012 | Encounter | [facility] | Transaction, | | | | | OUTPATIENT | Provider Unknown | | | | | PROCEDURES [address] | | | | | [address] | (Fax) | | | | | [place], [place] | | | | | | [address] | | | | | | [phone] | | | +--------+ + + + [...] | | | | | [place] [address] | | | | | | [phone] | | | | | | | | +--------+ + + + + documented as of this encounter Visit Diagnoses Not on filedocumented in this encounter"
--- OUTSIDE RECORDS SUMMARY | ~2019-10-28 | XMS | Encounter Summary ---
Demographics + + + | Address | [address] | | | [place] [address] | + + + | Home Phone [...] Team Providers + +------+ + | Care Package Worker Name | Role | Phone | + +------+ + PCP | Unavailable | + +------+ + Encounter Details +--------+ + + + + | Date | Type | Department | Care Team | Description | +--------+ + + + + | 01/26/ | Hospital | [facility] | Chester Guillaume MD | | | 2000 - | Encounter | MED CTR MED ONC | [address] | | | | | [address] [place] | [place] | | | 01/27/ | | [place] [address] | [address] | | | 2000 | | [phone] | | | +--------+ + + + [...] | | | | | [place] [address] | | | | | | [phone] | | | | | | | | +--------+ + + + + documented as of this encounter Visit Diagnoses Not on filedocumented in this encounter"
--- OUTSIDE RECORDS SUMMARY | ~2019-10-28 | XMS | Encounter Summary ---
Demographics + + + | Address | [address] | | | [place] [address] | + + + | Home Phone [...] Providers + +------+ + | Care Diamond Setter Apprentice Name | Role | Phone | + +------+ + PCP | Unavailable | + +------+ + Encounter Details +--------+ + + + + | Date | Type | Department | Care Team | Description | +--------+ + + + + | 08/10/ | [facility] | [facility] | | | | 1998 | Encounter | MED CTR LABORATORY | | | | | | [address] | | | | | | [place] | | | | | | [address] | | | | | | [phone] | | | +--------+ + + + [...] | | | | | [place] [address] | | | | | | [phone] | | | | | | | | +--------+ + + + + documented as of this encounter Visit Diagnoses Not on filedocumented in this encounter"
--- OUTSIDE RECORDS SUMMARY | ~2019-10-28 | XMS | Encounter Summary ---
Demographics + + + | Address | [address] | | | [place] [address] | + + + | Home Phone [...] + + + | Author | [facility] | | | and [place] | + + + | Organization | [facility] | | [...] Team Providers + +------+ + | Care Engineering Lecturer Name | Role | Phone | + +------+ + PCP | Unavailable | + +------+ + Encounter Details +--------+ + + + + | Date | Type | Department | Care Team | Description | +--------+ + + + + | 02/13/ | [facility] | [facility] | | | | 2000 | Encounter | MED CTR GENERIC OP | | | | | | CONV DEPT [address] | | | | | | [place], | | | | | | [place] [address] | | | | | | [phone] | | | +--------+ + + + [...] | | | | | [place] [address] | | | | | | [phone] | | | | | | | | +--------+ + + + + documented as of this encounter Visit Diagnoses Not on filedocumented in this encounter"
--- OUTSIDE RECORDS SUMMARY | ~2019-10-28 | XMS | Encounter Summary ---
Demographics + + + | Address | [address] | | | [place] [address] | + + + | Home Phone | | + + + | Preferred Language | Unknown | + + + | Marital Status | Single | + + + | Zoroastrianism Affiliation | 1013 | + + + | Race | Unknown | + + + | Ethnic Group | Unknown | + + + Author + + + | Author | [facility] | | | and [place] | + + + | Organization | [facility] | | | [...] Team Providers + +------+ + | Care Remittance Clerk Name | Role | Phone | + +------+ + PCP | Unavailable | + +------+ + Encounter Details +--------+ + + + + | Date | Type | Department | Care Team | Description | +--------+ + + + + | 10/20/ | [facility] | [facility] | | | | 2006 | Encounter | MED CTR XRAY [address] | | | | | | [address] | | | | | | [place] [address] | | | | | | [phone] | | | +--------+ + + + [...] | | | | | [place] [address] | | | | | | [phone] | | | | | | | | +--------+ + + + + documented as of this encounter Visit Diagnoses Not on filedocumented in this encounter"
--- OUTSIDE RECORDS SUMMARY | ~2019-10-28 | XMS | Encounter Summary ---
Demographics + + + | Address | [address] | | | [place] [address] | + + + | Home Phone | | + + + | Preferred Language | Unknown | + + + | Marital Status | Single | + + + | Pentecostalism Affiliation | 1013 | + + + | Race | Unknown | + + + | Ethnic Group | Unknown | + + + Author + + + | Author | [facility] | | | and [place] | + + + | Organization | [facility] | | | [...] Team Providers + +------+ + | Care Electronics Technician Apprentice Name | Role | Phone | + +------+ + PCP | Unavailable | + +------+ + Encounter Details +--------+ + + + + | Date | Type | Department | Care Team | Description | +--------+ + + + + | 09/24/ | [facility] | [facility] | | | | 2005 | Encounter | MED CTR XRAY [address] | | | | | | [address] | | | | | | [place] [address] | | | | | | [phone] | | | +--------+ + + + [...] | | | | | [place] [address] | | | | | | [phone] | | | | | | | | +--------+ + + + + documented as of this encounter Visit Diagnoses Not on filedocumented in this encounter"
--- OUTSIDE RECORDS SUMMARY | ~2019-10-28 | XMS | Encounter Summary ---
Demographics + + + | Address | [address] | | | [place] [address] | + + + | Home Phone [...] Team Providers + +------+ + | Care Gis Application Developer Name | Role | Phone | + +------+ + PCP | Unavailable | + +------+ + Encounter Details +--------+ + + + + | Date | Type | Department | Care Team | Description | +--------+ + + + + | 05/20/ | [facility] | [facility] | | | | 2008 | Encounter | MED CTR XRAY [address] | | | | | | [address] | | | | | | [place] [address] | | | | | | [phone] | | | +--------+ + + + [...] | | | | | [place] [address] | | | | | | [phone] | | | | | | | | +--------+ + + + + documented as of this encounter Visit Diagnoses Not on filedocumented in this encounter"
--- OUTSIDE RECORDS SUMMARY | ~2019-10-28 | XMS | Encounter Summary ---
Demographics + + + | Address | [address] | | | [place] [address] | + + + | Home Phone [...] Team Providers + +------+ + | Care Lvn Lpn Name | Role | Phone | + [...] | CONVERSION DEP [address] | Transaction, | ([facility]) | | | | [address] | Provider Unknown | | | | | [place], [place] | [phone] | | | | | [address] | | | | | | [phone] | | | +--------+ + + + [...] | | | | | [place] [address] | | | | | | [phone] | | | | | | | | +--------+ + + + + documented as of this encounter Visit Diagnoses + + | Diagnosis | + + | Multiple sclerosis (HCC) Multiple sclerosis | + + documented in this encounter"
--- OUTSIDE RECORDS SUMMARY | ~2019-10-28 | XMS | Encounter Summary ---
Demographics + + + | Address | [address] | | | [place] [address] | + + + | Home Phone [...] Team Providers + +------+ + | Care Pony Ride Operator Name | Role | Phone | [...] bile | [address] | [address], | | | | | duct | [address] | [place] [address] | | | | | Procedures | [place], | [place], | | | | | Evaluate and | [place] [address] | [place] [address] | | | | | Treat | Phone: | Phone: | | | | | | [phone] | [phone] | | | | | | Fax: | Fax: | | | | | | [phone] | [phone] | +--------+--------+ + + + + Encounter [...] | [address] [place] | [address] [place] [address] | (SGPT) level raised; | | | | [address] [place], [place] | [place], [place] | 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 She was seen in [facility] office by Dr. Martin for "recurrent [...] | | | | | [place] [address] | | | | | | [phone] | | | | | | | [...]
--- OUTSIDE RECORDS SUMMARY | ~2019-10-28 | XMS | Encounter Summary ---
Demographics + + + | Address | [address] | | | [place] [address] | + + + | Home Phone [...] Providers + +------+ + | Care Warehouse Shipping Associate Name | Role | Phone | + +------+ + | Freddie Woodward MD | PCP | | + +------+ + Encounter Details +--------+ + + + + | Date | Type | Department | Care Team | Description | +--------+ + + + + | 01/12/ | Hospital | [facility] | Conversion | | | 2014 | Encounter | [facility] | Transaction, | | | | | OUTPATIENT | Provider Unknown | | | | | PROCEDURES [address] | | | | [address] | (Fax) | | | | | [place], [place] | | | | | | [address] | | | | | | [phone] | | | +--------+ + + + [...] | | | | | [place] [address] | | | | | | [phone] | | | | | | | | +--------+ + + + + documented as of this encounter Visit Diagnoses Not on filedocumented in this encounter"
--- OUTSIDE RECORDS SUMMARY | ~2019-10-28 | XMS | Encounter Summary ---
Demographics + + + | Address | [address] | | | [place] [address] | + + + | Home Phone [...] Team Providers + +------+ + | Care Honest John Rocket Crew Member Name | Role | Phone | + +------+ + PCP | Unavailable | + +------+ + Encounter Details +--------+ + + + + | Date | Type | Department | Care Team | Description | +--------+ + + + + | 12/05/ | [facility] | [facility] | | | | 2000 | Encounter | MED CTR LABORATORY | | | | | | [address] | | | | | | [place] | | | | | | [address] | | | | | | [phone] | | | +--------+ + + + [...] | | | | | [place] [address] | | | | | | [phone] | | | | | | | | +--------+ + + + + documented as of this encounter Visit Diagnoses Not on filedocumented in this encounter"
--- OUTSIDE RECORDS SUMMARY | ~2019-10-28 | XMS | Encounter Summary ---
Demographics + + + | Address | [address] | | | [place] [address] | + + + | Home Phone | | + + + | Preferred Language | Unknown | + + + | Marital Status | Single | + + + | Mormonism Affiliation | Unknown | + + + | Race | White | + + + | Ethnic Group | Not or | + + + Author + + + | Author | [facility] | + + + | Organization | [facility] | + + + | Address | Unknown | + + + | Phone | Unavailable | + + + Support + + +---------+ + | Name | Relationship | Address | Phone | + + +---------+ + | Kristina Dill | CHARIS | Unknown | Unavailable | + + +---------+ + Care Team Providers + +------+ + | Care Lan Administrator Name | Role | Phone | [...] | | | | | | Mailcode: [place] | | | | | | for Health and | | | | | | [facility] [address] | | | | | | [place], [place] | | | | | | [address] | | | | | | [phone] | | | +--------+ + + + [...]
--- OUTSIDE RECORDS SUMMARY | ~2019-10-28 | XMS | Encounter Summary ---
Demographics + + + | Address | [address] | | | [place] [address] | + + + | Home Phone | | + + + | Preferred Language | Unknown | + + + | Marital Status | Single | + + + | Christian Affiliation | 1013 | + + + | Race | Unknown | + + + | Ethnic Group | Unknown | + + + Author + + + | Author | [facility] | | | and [place] | + + + | Organization | [facility] | | [...] Team Providers + +------+ + | Care Boat Canvas Maker And Installer Name | Role | Phone | + +------+ + PCP | Unavailable | + +------+ + Encounter Details +--------+ + + + + | Date | Type | Department | Care Team | Description | +--------+ + + + + | 03/25/ | [facility] | [facility] | | | | 1999 - | Encounter | MED CTR ICU [address] | | | | | | [place], | | | | 03/26/ | | [place] [address] | | | | 1999 | | [phone] | | | +--------+ + + + [...] | | | | | [place] [address] | | | | | | [phone] | | | | | | | | +--------+ + + + + documented as of this encounter Visit Diagnoses Not on filedocumented in this encounter"
--- OUTSIDE RECORDS SUMMARY | ~2019-10-28 | XMS | Encounter Summary ---
Demographics + + + | Address | [address] | | | [place] [address] | + + + | Home Phone [...] Team Providers + +------+ + | Care Paint Roller Covermaker Name | Role | Phone | + +------+ + | Freddie Woodward MD | PCP | | + +------+ + Encounter Details +--------+ + + + + | Date | Type | Department | Care Team | Description | +--------+ + + + + | 10/13/ | Hospital | [facility] | Conversion | | | 2012 | Encounter | [facility] | Transaction, | | | | | OUTPATIENT | Provider Unknown | | | | | PROCEDURES [address] | | | | [address] | (Fax) | | | | | [place], [place] | | | | | | [address] | | | | | | [phone] | | | +--------+ + + + [...] | | | | | [place] [address] | | | | | | [phone] | | | | | | | | +--------+ + + + + documented as of this encounter Visit Diagnoses Not on filedocumented in this encounter"
--- OUTSIDE RECORDS SUMMARY | ~2019-10-28 | XMS | Encounter Summary ---
Demographics + + + | Address | [address] | | | [place] [address] | + + + | Home Phone [...] + + + | Author | [facility] | | | and [place] | + + + | Organization | [facility] | | | [...] Team Providers + +------+ + | Care Brake Repairer Name | Role | Phone | + +------+ + PCP | Unavailable | + +------+ + Encounter Details +--------+ + + + + | Date | Type | Department | Care Team | Description | +--------+ + + + + | 09/23/ | [facility] | [facility] | | | | 2006 | Encounter | MED CTR LABORATORY | | | | | | [address] | | | | | | [place] | | | | | | [address] | | | | | | [phone] | | | +--------+ + + + [...] | | | | | [place] [address] | | | | | | [phone] | | | | | | | | +--------+ + + + + documented as of this encounter Visit Diagnoses Not on filedocumented in this encounter"
--- OUTSIDE RECORDS SUMMARY | ~2019-10-28 | XMS | Encounter Summary ---
Demographics + + + | Address | [address] | | | [place] [address] | + + + | Home Phone [...] Team Providers + +------+ + | Care Educational Psychology Professor Name | Role | Phone | + +------+ + | Susan Ahn MD | PCP | | + +------+ + Encounter Details +--------+ + + + + | Date | Type | Department | Care Team | Description | +--------+ + + + + | 01/08/ | Hospital | [facility] | Kaz Martin MD | | | 2011 | Encounter | MED CTR MP INTRA OP | [address] [place] | | | | | [address] | [address] [place], [place] | | | | | [place], [place] | [address] | | | | | [address] | | | | | | [phone] | | | +--------+ + + + [...] | | | | | [place] [address] | | | | | | [phone] | | | | | | | [...] performed on the Korey | uIU/mL | [facility] | | | | [facility] | | MEDICAL | | | [...] + | [address] | [address] | [place] | [phone] | | [facility] | | [address] | | | - LABORATORY | | | | + + + + + | ROULA RIGGINS | [address] | [place] | | | [facility] | | [address] | | | - LABORATORY | | | | + + + + + documented in this encounter Visit Diagnoses Not on filedocumented in this encounter"
--- OUTSIDE RECORDS SUMMARY | ~2019-10-28 | XMS | Encounter Summary ---
Demographics + + + | Address | [address] | | | [place] [address] | + + + | Home Phone [...] Author | [facility] [...] Team Providers + +------+ + | Care Horse Stud Worker Name | Role | Phone | + +------+ + PCP | Unavailable | + +------+ + Encounter Details +--------+ + + + + | Date | Type | Department | Care Team | Description | +--------+ + + + + | 03/07/ | Hospital | [facility] | Unknown, | | | 1992 | Encounter | MED CTR XRAY [address] | MD Marlena | | | | | [address] | | | | | | [place] [address] | (Fax) | | | | | [phone] | | | +--------+ + + + [...] | | | | | [place] [address] | | | | | | [phone] | | | | | | | | +--------+ + + + + documented as of this encounter Visit Diagnoses Not on filedocumented in this encounter"
--- OUTSIDE RECORDS SUMMARY | ~2019-10-28 | XMS | Encounter Summary ---
Demographics + + + | Address | [address] | | | [place] [address] | + + + | Home Phone [...] + + + | Author | [facility] | | | and [place] | + + + | Organization | [facility] | | [...] Team Providers + +------+ + | Care Sports Specialist Name | Role | Phone | [...] [address] | | | | | [place], [place] | [address] | | | | | [address] | [place] [address] | | | | | [phone] | [phone] | | | | | | | [...] | | | | | [place] [address] | | | | | | [phone] | | | | | | | [...]
--- OUTSIDE RECORDS SUMMARY | ~2019-10-28 | XMS | Encounter Summary ---
Demographics + + + | Address | [address] | | | [place] [address] | + + + | Home Phone | | + + + | Preferred Language | Unknown | + + + | Marital Status | Single | + + + | Restorationist Affiliation | 1013 | + + + [...] Team Providers + +------+ + | Care Funeral Service Licensee Name | Role | Phone | + +------+ + | Freddie Woodward MD | PCP | | + +------+ + Encounter Details +--------+ + + + + | Date | Type | Department | Care Team | Description | +--------+ + + + + | 07/02/ | Abstract | [facility] [place] | [facility] | | | 2012 | | GASTROENTEROLOGY | [address] | | | | | [address] [place] | [place], [place] [address] | | | | | [address] [place], [place] | [place], [place] | | | | | [address] | [address] | | | | | [phone] | | | +--------+ + + + [...] | | | | | [place] [address] | | | | | | [phone] | | | | | | | | +--------+ + + + + documented as of this encounter Visit Diagnoses Not on filedocumented in this encounter"
--- OUTSIDE RECORDS SUMMARY | ~2019-10-28 | XMS | Encounter Summary ---
Demographics + + + | Address | [address] | | | [place] [address] | + + + | Home Phone [...] Team Providers + +------+ + | Care Information Management Manager Name | Role | Phone | [...] [address] | | | | | [place] | D | [place], | | | | | [place] | [place], | [place] [address] | | | | | INJECTION, 1 | [place] [address] | Phone: | | | | | [place] | Phone: | [phone] | | | | | CHEMOTHER, | [phone] | Fax: | | | | | IV INFUSION, | Fax: | [phone] | | | | | 1 HR | [phone] | | + +--------+ + + + + Encounter Details +--------+ + + + + | Date | Type | Department | Care Team | Description | +--------+ + + + + | 10/27/ | Clinical | [facility] | | MULTIPLE SCLEROSIS | | 2019 | Support | NEUROLOGY [address] | | (Primary Dx); | | | | [address] | | Encounter for | | | | [place] | | medication | | | | [address] | | monitoring | | | | [phone] | | | +--------+ + + + [...] D | | | | | | [place] [address] | | | | | | [phone] | | | | | | | [...]
--- OUTSIDE RECORDS SUMMARY | ~2019-10-28 | XMS | Encounter Summary ---
Demographics + + + | Address | [address] | | | [place] [address] | + + + | Home Phone [...] Providers + +------+ + | Care Sales Order Processor Name | Role | Phone | [...] + + | 09/07/ | Refill | [facility] | Denis Stokes, | Medication Refill | | 2019 | | NEUROLOGY [address] | [place]-Jacqueline [address] | | | | | [address] | [address]IVE [facility] [address] | | | | | [place], [place] | [place] [address] | | | | | [address] | [phone] | | | | | [phone] | | | +--------+--------+ + + + [...] | | | | | [place] [address] | | | | | | [phone] | | | | | | | | +--------+ + + + + documented as of this encounter Visit Diagnoses Not on filedocumented in this encounter"
--- OUTSIDE RECORDS SUMMARY | ~2019-10-28 | XMS | Encounter Summary ---
Demographics + + + | Address | [address] | | | [place] [address] | + + + | Home Phone | | + + + | Preferred Language | Unknown | + + + | Marital Status | Single | + + + | Church Affiliation | 1013 | + + + | Race | Unknown | + + + | Ethnic Group | Unknown | + + + Author + + + | Author | [facility] | | | and [place] | + + + | Organization | [facility] | | [...] Team Providers + +------+ + | Care Retail Marketing Executive Name | Role | Phone | + +------+ + | Freddie Woodward MD | PCP | | + +------+ + Encounter Details +--------+ + + + + | Date | Type | Department | Care Team | Description | +--------+ + + + + | 06/23/ | Orders Only | [facility] | Provider, | | | 2018 | | SYSTEM GENERIC OP | MD [address] | | | | | CONVERSION [address] | [place]. | | | | | [address] [place], [place] | [place] [address] | | | | | [address] | | | | | | [phone] | | | +--------+ + + + [...] | | | | | [place] [address] | | | | | | [phone] | | | | | | | | +--------+ + + + + documented as of this encounter Visit Diagnoses Not on filedocumented in this encounter"
--- OUTSIDE RECORDS SUMMARY | ~2019-10-28 | XMS | Encounter Summary ---
Demographics + + + | Address | [address] | | | [place] [address] | + + + | Home Phone | | + + + | Preferred Language | Unknown | + + + | Marital Status | Single | + + + | Anabaptism Affiliation | 1013 | + + + | Race | Unknown | + + + | Ethnic Group | Unknown | + + + Author + + + | Author | [facility] | | | and [place] | + + + | Organization | [facility] | [...] Team Providers + +------+ + | Care Healthcare Associate Name | Role | Phone | + +------+ + PCP | Unavailable | + +------+ + Encounter Details +--------+ + + + + | Date | Type | Department | Care Team | Description | +--------+ + + + + | 09/06/ | [facility] | [facility] | | | | 1995 - | Encounter | MED CTR GENERIC IP | | | | | | CONV DEPT [address] | | | | 09/08/ | | [address], | | | | 1997 | | [place] [address] | | | | | | [phone] | | | +--------+ + + + [...] | | | | | [place] [address] | | | | | | [phone] | | | | | | | | +--------+ + + + + documented as of this encounter Visit Diagnoses Not on filedocumented in this encounter"
--- OUTSIDE RECORDS SUMMARY | ~2019-10-28 | XMS | Encounter Summary ---
Demographics + + + | Address | [address] | | | [place] [address] | + + + | Home Phone [...] Team Providers + +------+ + | Care Business Information Analyst Name | Role | Phone | + +------+ + | Freddie Woodward MD | PCP | | + +------+ + Encounter Details +--------+ + + + + | Date | Type | Department | Care Team | Description | +--------+ + + + + | 11/09/ | Hospital | [facility] | Conversion | | | 2014 | Encounter | [facility] | Transaction, | | | | | OUTPATIENT | Provider Unknown | | | | | PROCEDURES [address] | | | | [address] | (Fax) | | | | | [place], [place] | | | | | | [address] | | | | | | [phone] | | | +--------+ + + + [...] | | | | | [place] [address] | | | | | | [phone] | | | | | | | | +--------+ + + + + documented as of this encounter Visit Diagnoses Not on filedocumented in this encounter"
--- OUTSIDE RECORDS SUMMARY | ~2019-10-28 | XMS | Encounter Summary ---
Demographics + + + | Address | [address] | | | [place] [address] | + + + | Home Phone [...] Team Providers + +------+ + | Care Classified Ad Clerk Name | Role | Phone | + +------+ + | Freddie Woodward MD | PCP | | + +------+ + Encounter Details +--------+ + + + + | Date | Type | Department | Care Team | Description | +--------+ + + + + | 12/07/ | Hospital | [facility] | Conversion | | | 2015 | Encounter | [facility] | Transaction, | | | | | OUTPATIENT | Provider Unknown | | | | | PROCEDURES [address] | | | [address] | (Fax) | | | | | [place], [place] | | | | | | [address] | | | | | | [phone] | | | +--------+ + + + [...] Stokes PA-C Service: Neurology Author Type: Physician Drilling Plant Operator - Certif ied Filed: 12/07/14 1875 Date of Service: 12/07/141331 Status: Signed Assembling Fabricator: Denis Stokes PA-C (Physician Drilling Plant Operator - Certified) The patient returns today for [...] | | | | | [place] [address] | | | | | | [phone] | | | | | | | | +--------+ + + + + documented as of this encounter Visit Diagnoses Not on filedocumented in this encounter"
--- OUTSIDE RECORDS SUMMARY | ~2019-10-28 | XMS | Encounter Summary ---
Demographics + + + | Address | [address] | | | [place] [address] | + + + | Home Phone [...] Team Providers + +------+ + | Care Offset Press Operator Name | Role | Phone | + +------+ + | Freddie Woodward MD | PCP | | + +------+ + Encounter Details +--------+ + + + + | Date | Type | Department | Care Team | Description | +--------+ + + + + | 01/12/ | Hospital | [facility] | Conversion | | | 2014 | Encounter | [facility] | Transaction, | | | | | OUTPATIENT | Provider Unknown | | | | | PROCEDURES [address] | | | [address] | (Fax) | | | | | [place], [place] | | | | | | [address] | | | | | | [phone] | | | +--------+ + + + [...] | | | | | [place] [address] | | | | | | [phone] | | | | | | | | +--------+ + + + + documented as of this encounter Visit Diagnoses Not on filedocumented in this encounter"
--- OUTSIDE RECORDS SUMMARY | ~2019-10-28 | XMS | Encounter Summary ---
Demographics + + + | Address | [address] | | [place] [address] | + + + | Home Phone [...] Team Providers + +------+ + | Care Talent Acquisition Director Name | Role | Phone | + +------+ + PCP | Unavailable | + +------+ + Encounter Details +--------+ + + + + | Date | Type | Department | Care Team | Description | +--------+ + + + + | 02/21/ | [facility] | [facility] | | | | 1999 | Encounter | [facility] | | | | | | CONV DEPT [address] | | | | | [place], | | | | | | [place] [address] | | | | | | [phone] | | | +--------+ + + + [...] | | | | | [place] [address] | | | | | | [phone] | | | | | | | | +--------+ + + + + documented as of this encounter Visit Diagnoses Not on filedocumented in this encounter"
[~2019-10-28 07:17] MED LIST: ALL DAY ALLERGY10 MG PO; AMITIZA24 MCG PO; BACLOFEN10 MG PO; CIPROFLOXACIN250 MG PO; EFFEXOR XR37.5 MG PO; EFFEXOR XR75 MG PO; ESTRADIOL1 EAC3 TD; FLONASE ALLERG9.9 ML NS; GABAPENTIN100 MG PO; HYDROCHLOROTHIA25 MG PO; KLOR-CON 1010 MEQ PO; LEVOTHYROXINE50 MCG PO; MEDROXYPROGEST2.5 MG PO; MELATONIN5 M2 PO; METFORMIN HCL500 MG PO; MINIPRESS1 MG PO; NORCO 5-325 TA1 EACH PO; OMEPRAZOLE20 MG PO; PROBIOTIC1 EAC1 PO; PROBIOTIC1 EAC2 PO; SENNA8.6 MG PO; SIMVASTATIN20 MG PO; TRAMADOL HCL50 MG PO; TRAZODONE HCL50 MG PO; TYSABRI300 MG/15 IV; VENTOLIN HFA18 GM IH; VITAMIN D32400 UNIT/ PO; WOMEN'S 50+ DA1 EACH PO; ZOFRAN ODT4 MG SL; ZONEGRAN100 MG PO
--- OUTSIDE RECORDS SUMMARY | 2019-10-28 07:22 | XMS ---
PreManage Notification: [place] Security Assembler Bonding Events No recent Security Events currently on file CRITERIA MET - [facility] CARE PROVIDERS [facility] Current PHONE: Unknown oranalilia Case or Strategic Planning Consultant Current PHONE: Unknown Freddie Woodward [facility] Current PHONE: Unknown Skip has no Care Guidelines for this patient. E.D. VISIT COUNT (12 MO.) 1 MARY CARMEN Gomez TOTAL 1 NOTE: Visits indicate total known visits. ED/UCC VISIT TRACKING (12 MO.) 10/28/2019 07:20 MARY CARMEN Barrios [place] TYPE: Emergency COMPLAINT: - ACCIDENTAL OVER DOSE INPATIENT VISIT TRACKING (12 MO.) No inpatient visits to display in this time frame [email or web address]
[2019-10-28] MEDS ORDERED: DESVENLAFAXINE50 M3 PO (07:52)
[2019-10-28] MEDS ORDERED: LINZESS72 MCG PO (07:53)
[2019-10-28] MEDS ORDERED: LORAZEPAM1 MG PO (07:53)
[2019-10-28] MEDS ORDERED: MOBIC15 MG PO (07:54)
[2019-10-28] MEDS ORDERED: NEXIUM40 MG PO (07:54)
[2019-10-28] MEDS ORDERED: AMANTADINE100 MG PO (07:56)
--- NOTE | 2019-10-28 19:08 | EKG ---
[facility] [address] [facility] [place] [address] Signed Normal sinus rhythm Normal ECG No previous ECGs available Confirmed by MACKENZIE YO MD ([id number]) on 10/28/2019 7:07:53 PM Electronically Signed By: MACKENZIE YO MD 10/28/19 1908 PATIENT NAME: [place] Electrocardiogram DATE OF : 61 PHYSICIAN: MACKENZIE YO MD REPORT #: [id number] REPORT IS CONFIDENTIAL AND NOT TO BE RELEASED WITHOUT AUTHORIZATION
== END 2019-10-28 14:25 | disposition home or self-care (01) ==
LOC: ED 07:17
DX: T42.6X1A Poisoning by other antiepileptic and sedative-hypnotic drugs, accidental (unintentional), initial encounter (principal); T42.8X1A Poisoning by antiparkinsonism drugs and other central muscle-tone depressants, accidental (unintentional), initial encounter; T47.1X1A Poisoning by other antacids and anti-gastric-secretion drugs, accidental (unintentional), initial encounter; I10 Essential (primary) hypertension; Z88.5 Allergy status to narcotic agent; Z88.8 Allergy status to other drugs, medicaments and biological substances; Z79.899 Other long term (current) drug therapy
CPT/HCPCS: 93005; 93010; 99284-25

== ENCOUNTER 2021-07-09 05:02 | Emergency (ER) | payer MEDICARE, MEDICAID ==
[~2021-07-09] VITALS: Ht 157.5 cm; Wt 88.5 kg
[~2021-07-09 05:02] MED LIST changes: +AMANTADINE100 MG PO; +DESVENLAFAXINE50 M3 PO; +FLOMAX0.4 MG PO; +GLUCOPHAGE500 MG PO; +LINZESS72 MCG PO; +LORAZEPAM1 MG PO; +MOBIC15 MG PO; +NEXIUM40 MG PO; +VITAMIN B-121000 MC3 PO
--- OUTSIDE RECORDS SUMMARY | 2021-07-09 05:04 | XMS ---
PreManage Notification: ROX LEE Security Library Media Specialist Events No recent Security Events currently on file CRITERIA MET - PDMP CARE PROVIDERS CARLIN ROSADO Physician Relations Mgr 10/30/2019-Current PHONE: Unknown Skip has no Care Guidelines for this patient. Clementine VISIT COUNT (12 MO.) 1 MARY CARMEN Gomez TOTAL 1 NOTE: Visits indicate total known visits. ED/UCC VISIT TRACKING (12 MO.) 07/09/2021 05:02 MARY CARMEN Barrios OR TYPE: Emergency COMPLAINT: - LOWER BACK/HIP PAIN INPATIENT VISIT TRACKING (12 MO.) No inpatient visits to display in this time frame [email or web address]
== END 2021-07-09 06:38 | disposition home or self-care (01) ==
LOC: ED 05:02
DX: E11.42 Type 2 diabetes mellitus with diabetic polyneuropathy (principal); I10 Essential (primary) hypertension; Z87.891 Personal history of nicotine dependence; Z88.5 Allergy status to narcotic agent; Z88.8 Allergy status to other drugs, medicaments and biological substances; Z79.899 Other long term (current) drug therapy; Z79.84 Long term (current) use of oral hypoglycemic drugs
CPT/HCPCS: 96372; 99283; J1170

== ENCOUNTER 2022-02-28 07:45 | Day surgery (SDC) | payer MEDICARE ==
[~2022-02-28] VITALS: Ht 157.5 cm; Wt 84.1 kg
[~2022-02-28 07:45] MED LIST changes: +CALCIUM MAGNES1 EAC1 PO; +FEOSOL325 MG PO; +K-TAB ER20 MEQ PO; +MAGNESIUM100 MG PO; +NIACIN100 MG; +PANCREATIN 8X1 GM MISC; +PAPAYA ENZYME1 EACH PO; +PRILOSEC OTC20 MG PO; +PROAIR HFA8.5 GM; +TRULANCE3 MG PO; +VITAMIN B122500 MCG PO
[2022-02-28] MEDS ORDERED: LISINOPRIL-HCT1 EAC2 PO (08:07)
--- NOTE | 2022-02-28 11:27 | NUR ---
02/28/22 Ryan7 Chantale Melendez 1121-PATIENT ARRIVED TO PACU ON 6L MASK NONAROUSABLE RR EVEN. LAYING LEFT LATERAL. IVF INFUSING. ABDOMEN ROUND AND SOFT. SR.
--- NOTE | 2022-03-14 08:56 | OR ---
[facility] [address] [place], [place] [address] Signed DATE OF OPERATION: 02/28/2022 SURGEON: Paula Arroyo MD PREOPERATIVE DIAGNOSES: 1. Chronic irritable bowel syndrome with constipation. 2. Long redundant colon. 3. Mother with a history of colonic polyps. POSTOPERATIVE DIAGNOSES: 1. Long redundant colon. 2. Mild to moderately poor bowel prep. 3. Internal anal skin tags x2. PROCEDURE: Colonoscopy without hot biopsy. ESTIMATED BLOOD LOSS: None. INDICATIONS: Rox is a 56-year-old female asked to see me for followup colonoscopy. She has obesity and multiple sclerosis. She describes her lifelong constipation associated with her irritable bowel syndrome clear back to childhood. She uses [facility] with good results. She describes a colonoscopy with Dr. Martin back in 2011. She was having left lower quadrant abdominal pain and a change in her bowel habits at that time. Of course, she required monitored anesthesia care given her medical history in her very long redundant colon. In addition, she has chronic pain issues requiring chronic pain medications. She mentions an upper endoscopy in 1998 in [place], [place], but apparently not with Dr. Martin. She has had issues with her bile duct after her gallbladder was removed and required an endobiliary stent for two weeks in 2006. She describes having pancreatitis. Overall, she has been well since that time. She told me her mother is quite elderly now but she did undergo several colonoscopies with colonic polyps removed on several occasions. She thinks there are people in the family with diverticulosis including her mother. Now that her mom is in her 80s, she no longer goes for followup colonoscopies. In the office, I gave Rox a pamphlet on colonoscopy. We had reviewed the nature of the test. There is risk including, but not limited to gas bloating, crampy abdominal pain, bleeding, perforation requiring surgery, and missed diagnosis. She actually volunteered the need for two days of bowel prep. I had reviewed the bowel prep with her in detail per our instructions. She also requires monitored anesthesia Electronically Signed By: PAULA ARROYO MD 03/01/22 0747 Electronically Signed By: PAULA ARROYO MD 03/14/22 1125 PATIENT NAME: ROX LEE OPERATIVE REPORT DATE OF : 61 REPORT #: [id number] PHYSICIAN: PAULA ARROYO MD PCP: LUCY ROSADO REPORT IS CONFIDENTIAL AND NOT TO BE RELEASED WITHOUT AUTHORIZATION [address] [address] Signed care given the above findings. She had expressed understanding and wished to proceed. PROCEDURE NOTE: Rox was taken into the endoscopy suite and placed in the left lateral decubitus position. She was given monitored anesthesia care with propofol per our nurse equipment mechanic specialist. A digital rectal exam was performed and she did have some liquid particulate stool matter from the anus. She had good sphincter tone. No obvious external hemorrhoids. No masses palpated. The adult colonoscope was introduced and advanced under direct visualization of the camera up into the cecum itself. It took some extra sedation and abdominal compression in order to advance the scope. Indeed, she has a long redundant colon. She had a few areas of heavy particulate stool matter, I could not quite irrigate and suction out completely. However, we did see the appendiceal orifice and ileocecal valve quite readily. The scope was then slowly withdrawn. We took pictures throughout for photodocumentation. We did not see any evidence for any polyps or diverticulosis. The rectum was unremarkable. Upon retroflexion of the scope, we could see two small internal anal skin tags. After this, the gas was suctioned out and the colonoscope removed. Rox tolerated the procedure quite well. RECOMMENDATIONS: Rox will return in 5 years for repeat colonoscopy due to her mother's history of colonic polyps. If indeed she took the double bowel prep, she needs to add magnesium citrate or something else to ensure that she is more adequately clean on the next colonoscopy. As always, she will need monitored anesthesia care in the future. Paula Arroyo MD ALB/MODL /[id number] cc: MD Lucy Franklin PA Copies: PAULA ARROYO MD Electronically Signed By: PAULA ARROYO MD 03/01/22 0747 Electronically Signed By: PAULA ARROYO MD 03/14/22 1125 PATIENT NAME: ROX LEE OPERATIVE REPORT DATE OF : 61 REPORT #: [id number] PHYSICIAN: PAULA ARROYO MD PCP: LUCY ROSADO REPORT IS CONFIDENTIAL AND NOT TO BE RELEASED WITHOUT AUTHORIZATION [address] [address] Signed LUCY ROSADO ~ Electronically Signed By: PAULA ARROYO MD 03/01/22 0747 Electronically Signed By: PAULA ARROYO MD 03/14/22 1125 PATIENT NAME: ROX LEE OPERATIVE REPORT DATE OF : 61 REPORT #: [id number] PHYSICIAN: PAULA ARROYO MD PCP: LUCY ROSADO REPORT IS CONFIDENTIAL AND NOT TO BE RELEASED WITHOUT AUTHORIZATION
== END 2022-02-28 12:00 | disposition home or self-care (01) ==
LOC: OPS 07:45 → DS 07:45 → OPS 09:45
PROVIDERS: ATTEND Colon & Rectal Surgery
PROC: 0DBE8ZZ Excision of Large Intestine, Via Natural or Artificial Opening Endoscopic (ICD-10-PCS; principal; 2022-02-28 09:45)
DX: K58.1 Irritable bowel syndrome with constipation (principal); Q43.8 Other specified congenital malformations of intestine; K64.4 Residual hemorrhoidal skin tags; E11.9 Type 2 diabetes mellitus without complications; E66.9 Obesity, unspecified; G35 Multiple sclerosis; Z83.71 Family history of colonic polyps; J45.909 Unspecified asthma, uncomplicated; I10 Essential (primary) hypertension; E78.5 Hyperlipidemia, unspecified; Z87.891 Personal history of nicotine dependence
CPT/HCPCS: 00811; J2704; J7121